=== PATIENT | female | born 2000 | race Caucasian/White ===

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

== ENCOUNTER → 2019-02-03 15:09 | Outpatient (CLI) | payer OTHER, SELFPAY ==
[2019-02-03 15:00] VITALS: BMI 33.6
--- NOTE | 2019-02-03 15:11 | RAD_ITS ---
STUDY: X-RAY - PELVIS AND RIGHT HIP REASON FOR EXAM: Hip pain. TECHNIQUE: 2 views of the pelvis and hip. COMPARISON: None. FINDINGS: Normal visualized soft tissue structures. Normal bilateral iliac wings, sacroiliac joints and visualized sacrum. Normal bilateral superior and inferior pubic rami. Normal pubic symphysis. Normal bilateral ischial tuberosities. Normal visualized femoral head. Normal acetabulum. Normal hip joint. RAD/HIP, UNI W/ Pelvis 2-3 Views IMPRESSION: Normal x-ray examination of the pelvis and right hip. Electronically Signed: Diego Tolentino MD at 16:01 EDT Tel , Service support ,
== END ==
PROVIDERS: Family Provider Pediatrics; PCP Pediatrics; Referring Provider Physician Assistant; Visit Provider Physician Assistant
DX: M25.551 Pain in right hip (principal)
CPT/HCPCS: 73502

== ENCOUNTER → 2019-03-21 10:41 | Outpatient (CLI) | payer OTHER, SELFPAY ==
[2019-02-03 15:00] VITALS: BMI 33.6
--- NOTE | 2019-03-21 10:42 | RAD_ITS ---
CLINICAL HISTORY: Female, 18 years old. Six-month history of pain. No known injury. PROCEDURE: ARTHROGRAM - RIGHT HIP CONSENT: The procedure as well as the benefits and possible complications including bleeding and infection were explained to the patient. Informed consent was obtained. FLUOROSCOPY TIME (if supplied): (81 seconds) minutes/seconds Injection Information: 10 cc of dilute MRI contrast. Number of images obtained: 1 TECHNIQUE: (All elements of maximal sterile barrier technique followed, including US elements as applicable) The patient was in the supine position. Skin was prepped and draped in usual sterile fashion. Following local anesthetic application and under direct fluoroscopic guidance, a 22-gauge spinal needle was placed into the hip joint. 2 cc of Isovue-300 was injected into the joint. Following this, 10 cc of dilute Magnevist was injected. The patient tolerated the procedure well. RAD/Arthrogram Hip w/ MRI IMPRESSION: Successful right hip arthrogram for MRI examination. Electronically Signed: Higinio Vasques, at 12:42 EST , Service support ,
--- NOTE | 2019-03-21 11:16 | MRI_ITS ---
STUDY: MR RIGHT HIP ARTHROGRAPHY REASON FOR EXAM: Right hip pain for 1.5 years, no specific injury. TECHNIQUE: Standardized fat and water weighted pulse sequences were obtained in all 3 orthogonal planes after intra-articular instillation of dilute Dotarem. COMPARISON: Radiographs 02/03/2019. FINDINGS: Normal hip joint without articular joint space narrowing. Normal acetabulum. There is a tear of the superior labrum (T1 coronal images 11-13) and anterior labrum (T1 axial images 14, 15). Normal femoral head. Normal femoral neck and intratrochanteric region. Normal gluteus minimus, medius and iliopsoas tendons and distal insertions. There is no trochanteric, iliopsoas or iliopectineal bursitis. Normal visualized superior and inferior pubic rami. Normal ischial tuberosity. Normal origin of the hamstring tendons. Normal visualized iliac wing. There is iatrogenic edema in the musculature anterior to the right hip. MRI/Lower Ext/Jt Only/W Contrast IMPRESSION: Labral tear. Electronically Signed: Diego Tolentino MD at 12:55 EST Tel , Service support ,
== END ==
PROVIDERS: Family Provider Pediatrics; PCP Pediatrics; Referring Provider Physician Assistant; Visit Provider Physician Assistant
DX: M25.551 Pain in right hip (principal); M25.851 Other specified joint disorders, right hip
CPT/HCPCS: 27093; 73722; 77002; A9575; Q9967

== ENCOUNTER 2019-10-28 19:05 | Emergency (ER) | payer OTHER, SELFPAY ==
[2019-08-30 13:50] VITALS: BMI 33.6
[2019-10-28 19:06] VITALS: BP 128/84; PULSE 100; RESP 18; TEMP 36.3; O2SAT 99; BMI 29.0
[2019-10-28] MEDS: Ketorolac 30 MG/ML Syringe IM (20:10)
[2019-10-28] MEDS: diazePAM 5 MG Tablet PO (20:10)
[2019-10-28 20:28] LABS: Bacteria 0 SEEN /hpf (None Seen); Mucous, Urine 0 SEEN /hpf (<or=2+)
[2019-10-28 20:33] LABS: Color, Urine Yellow (Yellow); Glucose, Dipstick Normal (Normal); Ketone-Dipstick Negative (Negative); Leukocyte Esterase-Dipstick 500 /ul (Negative); Nitrite-Dipstick Negative (Negative); Occult Blood-Urine 250 /ul (Negative); Protein-Dipstick 100 mg/dl (Negative); Urine Bilirubin Dipstick Negative (Negative); Urine Clarity Cloudy (Clear); Urine Urobilinogen 4 mg/dl (Normal)
[2019-10-28 20:39] LABS: Internal QC Validated? YES +Cl - CLEAR BKGD; Pregnancy, Urine Negative Negative
[2019-10-28 20:40] LABS: Red Blood Cells-Urine 50-100 SEEN /hpf (0-5); White Blood Cells >100 SEEN /hpf (0-5)
[2019-10-28 20:41] LABS: Squamous Epithelial Cells - UA 0-5 SEEN /hpf (5-10)
--- NOTE | 2019-10-28 20:46 | ED.DCSUM_ITS ---
- ER Visit Summary Date of Service: 10/28/19 Chief Complaint: Back pain History of Present Illness: The patient is a [address] Flores. Patient reports that approximate 30 minutes ago she was bending over and had the abrupt onset of a stabbing lower back pain. States that is 10 out of 10 at worst and 6 out of 10 currently. It is worsened by movement. Is relieved by remaining still and Tylenol. No radiation to her legs. No problems with her bowels or her bladder. No groin numbness. Patient reports that she has had dysuria and frequency for the past 2 days. She is on her menstrual period now. She denies any other complaints. No red flags. Physical Examination: Vitals: Stable. Afebrile. General: A&O x 3. NAD. Cardiovascular exam: Regular rate and rhythm, no murmur, rub or gallop. Respiratory exam: Clear to auscultation bilaterally. No wheezes or stridor. Abdominal exam: Soft, nontender, nondistended, normal bowel sounds. No peritoneal signs. Back: Diffuse moderate tenderness to palpation over the lumbar spine and the paraspinous musculature in the lumbar region. No point tenderness. Negative straight leg bilaterally. 5/5 DF, PF, EHL bilaterally. Normal sensation to light touch throughout. Extremity: No clubbing, cyanosis, or edema. Test Results: UA shows leukocytes, blood, greater than 100 white blood cells, 50-100 red blood cells, but no bacteria. test is negative. Emergency Department Course and Treatment: Patient was treated with Valium p.o., Toradol IM, and Keflex p.o. She is resting more comfortably. Treatment Plan: Patient will be discharged with Keflex, Valium, and naproxen. Instructed to follow-up with her primary care physician in 3 to 5 days if not improving. Return to the emergency department for any worsening symptoms. Disposition: To home in improved and stable condition. Impression: 1 1. Low back pain. 2. UTI. This note was generated with [facility] dictation software. It may contain incorrect words, spelling, and punctuation that were not noted in review of the chart prior to signing ED Disposition - Plan for ED Patient: Disposition: Home or Assisted Living Instructions: Understanding Urinary Tract Infections (UTIs), ED LUMBAR SPRAIN/STRAIN Prescriptions: Cephalexin [Keflex] 500 mg PO Q12 #14 cap Prescription Printed Naproxen [Naprosyn] 500 mg PO BID #14 tab Prescription Printed Diazepam [Valium] 5 mg PO Q8 PRN #10 tab PRN Reason: Muscle Spasm Prescription Printed Referrals: Marycarmen Flores MD [Primary Care Provider] - 1 Week
[2019-10-28] MEDS: Cephalexin 500 MG Capsule PO (21:08)
== END 2019-10-28 21:30 | disposition home or self-care (01) ==
LOC: ED 19:28
PROVIDERS: Emergency Provider Emergency Medicine; PCP Pediatrics
DX: N39.0 Urinary tract infection, site not specified (principal); M54.5 Low back pain
CPT/HCPCS: 81001; 81025; 96372; 99283

== ENCOUNTER → 2019-12-08 13:48 | Outpatient (CLI) | payer OTHER, SELFPAY ==
[2019-12-08 13:32] VITALS: BMI 29.0
[2019-12-08 15:01] LABS: HIV - WCH Non-Reactive (Nonreactive)
[2019-12-10 03:07] LABS: HCV Quant. RNA PCR HCV Not Detected IU/mL (.)
[2019-12-12 03:07] LABS: Chlamydia By Nucleic Acid AMP Negative (Negative)
[2019-12-12 08:00] LABS: Gonococcus By Nucleic Acid AMP Negative (Negative)
[2019-12-15 01:32] LABS: Rapid Plasmin Reagin (RPR) NONREACTIVE (NONREACTIVE)
== END ==
PROVIDERS: PCP Pediatrics; Referring Provider Obstetrics & Gynecology; Visit Provider Obstetrics & Gynecology
DX: Z11.3 Encounter for screening for infections with a predominantly sexual mode of transmission (principal)
CPT/HCPCS: 36415; 86592; 86703; 87070; 87205; 87491; 87522; 87591

== ENCOUNTER → 2020-01-06 | Outpatient (CLI) | payer OTHER, SELFPAY ==
[2020-01-06 16:48] VITALS: BMI 29.0
[2020-01-06 17:28] LABS: Red Blood Cells-Urine 0 SEEN /hpf (0-5)
[2020-01-06 17:37] LABS: Color, Urine Yellow (Yellow); Glucose, Dipstick Normal (Normal); Ketone-Dipstick 5 mg/dl (Negative); Leukocyte Esterase-Dipstick 25 /ul (Negative); Nitrite-Dipstick Negative (Negative); Occult Blood-Urine Negative /ul (Negative); Protein-Dipstick 15 mg/dl (Negative); Urine Bilirubin Dipstick Negative (Negative); Urine Clarity Sl. Cloudy (Clear); Urine Urobilinogen 4 mg/dl (Normal)
[2020-01-06 18:47] LABS: Bacteria 1+ /hpf (None Seen); Mucous, Urine 2+ /hpf (<or=2+); Squamous Epithelial Cells - UA 0-5 SEEN /hpf (5-10); White Blood Cells 5-10 SEEN /hpf (0-5)
== END | disposition home or self-care (01) ==
LOC: LABSPEC 17:28
PROVIDERS: PCP Pediatrics; Visit Provider Physician Assistant Surgical
DX: M54.5 Low back pain (principal)
CPT/HCPCS: 81001; 87077; 87086; 87088; 87186

== ENCOUNTER → 2020-01-13 | Outpatient (CLI) | payer OTHER, SELFPAY ==
[2020-01-13 13:20] VITALS: BMI 29.0
== END | disposition home or self-care (01) ==
LOC: LABSPEC 16:02
PROVIDERS: PCP Pediatrics; Referring Provider Obstetrics & Gynecology; Visit Provider Obstetrics & Gynecology
DX: N89.8 Other specified noninflammatory disorders of vagina (principal)
CPT/HCPCS: 87070; 87205

== ENCOUNTER → 2020-01-26 | Outpatient (CLI) | payer OTHER, SELFPAY ==
[2020-01-26 14:08] VITALS: BMI 27.7
== END | disposition home or self-care (01) ==
LOC: LABSPEC 16:19
PROVIDERS: PCP Pediatrics; Referring Provider Nurse Practitioner Women's Health; Visit Provider Nurse Practitioner Women's Health
DX: N39.0 Urinary tract infection, site not specified (principal); N76.0 Acute vaginitis
CPT/HCPCS: 87070; 87077; 87086; 87088; 87186; 87205

== ENCOUNTER 2020-02-10 13:00 | Outpatient (RCR) | payer OTHER, SELFPAY ==
[2019-08-30 13:50] VITALS: BMI 33.6
--- NOTE | 2019-10-03 17:32 | HP.PTEVAL ---
Patient's Visit Information JUAN WELCH is a 18 year old F referred to Physical Therapy by Dr. Valentín Trimble MD with a diagnosis of S/P RIGHT HIP SURGERY. Date of Evaluation: 10/03/19 Physical Therapist: Kailee De La Torre PT, Cert MDT - Visit Plan Frequency: 2-3x /Week Duration: 2 Months Plan: REHAB PER [facility] ARTHROSCOPIC LABREAL REPAIR PROTOCOL IN FOLDER IN WORK ROOM. - Subjective DX: S/P RIGHT HIP SCOPE WITH LABRAL REPOR, ACETABULOPLASTY, SYNOVECTOMY, CHONDROPLASTY, FEMOROPLASTY AND CAPSULAR CLOSURE 09/15/19 (2 WKS, 4 DAYS PO TODAY). Work/Leisure: [employer] STUDENT. Disability: NO. Present symptoms: USUALLY PAINFREE. INTERMITTENT RIGHT LATERAL THIGH PAIN. NUMBNESS ALONG OUTSIDE OF THIGH TOO. NO LOW BACK PAIN. Present since: APPROX 18 MONTHS BEFORE SURGERY AT LEAST. Pain Scale: WORST 3/10, LEAST 0/10. Currently: 0/10. Commenced as a result of: PATIENT REOPRTS HER HIP PAIN STARTED ABOUT 18 MONTHS AGO FOR NO APPARENT REASON BUT SHE SUSPECTS BEING IN DANCE FOR YEARS IS RELATED TO HER INJURY. Symptoms at onset: RIGHT HIP/GROIN. Worse: RANDOM RIGHT THIGH PAIN. Better: INTERMITTENT PAINS GO AWAY ON THEIR OWN. Disturbed sleep: NO. Previous history/Previous treatment: PT HERE ABOUT 1 YEAR AGO. H/O RIGHT HIP INJECTIONS WITH SOME BENEFIT. H/O LOW BACK STRAIN ABOUT 18 MONTHS AGO TOO. Treatment this episode: RIGHT HIP SX - SEE DX ABOVE. Gait: INDEP GAIT NWB WITH DARCI CRUTCHES. Accidents: NO. Unexplained weight loss: NO. Imagin03/21/19 - RIGHT HIP LABRAL TEAR ON MRI. PMH: UNREMARKABLE. CURRENT RESTRICTIONS: NO WB RIGHT UP TO THIS POINT. FOLLOW UP WITH DR. TRIMBLE IS IN 4 WEEKS - OCTOBER 28 2019. NO LIFTING > 10 LBS CURRENTLY ALSO. PATIENT REPORTS DOING HEP GIVEN AFTER SURGERY INCLUDING: ANKLE PUMPS, QS'S GS'S, BELT PASSIVE CALF STRETCH. PRONE LYING 20 MINUTES A DAY. ISO ABDOMINALS. PATIENT REPORT SHE AND HER MOTHER HAVE NOT BEEN DOING THE PASSIVE HIP CIRCUMDUCTION EX GIVEN AT PRE-OP SESSION BECAUSE WHEN THEY TRIED IT HURT. PATIENT DENIES ANY COMPLICATIONS WITH THE SURGERY AND REPORTS NO DIFFICLUTY WITH THE HEP. - Objective THIS PATIENT PRESENTS TO PHYSICAL THERAPY NWB RIGHT LE WITH DARCI AXILLARY CRUTCHES. SHE IS ABLE TO STAND WITH FOOT FLAT NON-WEIGHT BEARING. SHE IS ABLE TO INDEP'LY TRANSFER SIT TO STAND AND REVERSE. SHE IS ABLE TO TRANSFER SIT TO SUPINE INDEP'LY WITH UE ASSIST OF RIGHT LE. NON-OP LEFT HIP ROM IS WFL. PROM OF OPERATIVE RIGHT HIP: FLEX 101 DEG, ER 20 DEG, IR 15 DEG, EXTENSION 0 DEG. RIGHT LE STRENGTH GROSSLY WNL BUT PROCEEDED CAREFULLY WITH MMT'ING OF LEFT HIP. RIGHT LE STRENGTH: HIP NT, KNEE EXT 3-/5, KNEE FLEX 3-/5, ANKLE 4/5. FULL PROM OF RIGHT KNEE AND ANKLE. TREATMENT: REVIEWED HEP: PASSIVE HIP CIRCUMDUCTION WITH GENTLE LONG AXIS TRACTION AT ~60 DEG FLEX, FREQUENT PRONE LYING, ANKLE PUMPS, CALF STRETCHING, SUBMAX AND PAINFREE GLUTE SETS, QUAD SETS AND ISO ABDOMINALS. ADDED SUPINE HEEL SLIDES TO HEP. AGAIN - REVIEWED STANDING NON WT BEARING FOOT FLAT AND THE IMPORTANCE OF [employer] PLAN [employer]ER HELP WITH CIRCUMDUCTION. Sitting/Standing Posture: Lordosis: Lateral shift: Relevant shift: Active Correction of posture: Other Observations: Motor deficit: Sensory deficit: ROM deficit: Reflexes: Dural Signs: Lumbar mvmt loss: flex -. ext -. R SG -. L SG -. Core strength: Palpation: TREATMENT: NEUROMUSCULAR REEDUCATION - RETRAINING OF MVMT AND POSTURE FOR SITTING, LYING AND STANDING ACTIVITIES. - Goals Goal 1:: DECREASE C/O RIGHT HIP/THIGH PAIN Goal Time Frame: 6-8 Weeks Goal 2:: IMPROVE RIGHT LE FUNCTIONAL ROM Goal Time Frame: 6-8 Weeks Goal 3:: IMPROVE RIGHT LE FUCNTIONAL STRENGTH Goal Time Frame: 6-8 Weeks Goal 4:: INDEP AND SAFE GAIT ON ALL SURFACES WITH LEAST ASSISTIVE DEVICE AND DEVIATIONS. Goal Time Frame: 6-8 Weeks Goal 5:: INDEP HEP FOR CONTINUED IMPROVEMENT ONCE FORMAL PHYSICAL THERAPY CONCLUDES. Goal Time Frame: 6-8 Weeks - Rehabilitation Potential Rehabilitation Potential: Good - Anticipated Interventions Patient/Client Instruction: Educate patient on: Condition, Plan of Care, Risk Factors, Benefits of Fitness Program For the Purpose of:: To improve self management Therapeutic Exercise to Include: Strength training, Body mechanics, Postural training, Flexibilty training, Gait and locomotor training, Neuromotor development, Passive ROM, Active ROM, Dynamic Lumbar Stabilization Comment: PER PROTOCOL IN WORK ROOM For the Purpose of:: To decrease pain, To increase ROM, To improve muscle performance and motor function, To increase tolerance to activity/condition/position, To improve ability of physical actions for home/community/work/leisure, To improve gait and locomotor functions Thank you for the opportunity to evaluate your patient. For Medicare and Medicare HMO plans, please review the plan of care and approve it. It will need to be FAXED BACK to us at [phone] for Medicare purposes. For Medicare only, by signing this I certify the plan of care. Please let me know if there are questions or concerns regarding this plan of care. Physician Signature: Date:
--- NOTE | 2020-02-10 13:30 | HP.PTDCSUM_ITS ---
It has been my pleasure to treat JUAN WELCH referred by Dr. Valentín Trimble MD, with the diagnosis of S/P RIGHT HIP SURGERY 09/15/19 for a total of 33 visit(s). Discharge Date: Please see the following information for a summary of their discharge status. Subjective: PATIENT REPORTS SHE IS READY TO BE DISCHARGED. PATIENT REPORTS SHE HAS ACCESS TO THE GYM AT [facility] NOW. PATIENT REPORTS SHE HASN'T BEEN HAVING ANY PAIN AND SHE DOES NOT FEEL LIMITED IN ANY ACTIVITIES. HAS EVEN BEEN DOING SOME JOGGING AT SCHOOL. FOLLOW PENDING WITH DR. TRIMBLE 03/02/20. LEFT LOW BACK Pain Intensity (Out of 10): 0 % Improvement: 99 Objective/Function: PATIENT WAS SEEN TODAY FOR RE-ASSESSMENT OF PROGRESS TOWARD THE SET PT GOALS AND THE NEED FOR FURTHER PHYSICAL THERAPY VS READINESS FOR DISCHARGE. PATIENT IS NOW INDEP WITH HOME AND GYM EX PROGRAMS AND SKILLED PT IS NO LONGER INDIDCATED. SHE IS APPROPRIATE FOR AND AGREEABLE TO DISCHARGE. UPON EXAM TODAY: DARCI LE STRENGTH AND ROM ARE SYMMETRICAL AND WFL AND PAINFREE WITH TESTING. Goal 1:: DECREASE C/O RIGHT HIP/THIGH PAIN Goal Progress: Goal Met Goal 2:: IMPROVE RIGHT LE FUNCTIONAL ROM Goal Progress: Goal Met Goal 3:: IMPROVE RIGHT LE FUCNTIONAL STRENGTH Goal Progress: Goal Met Goal 4:: INDEP AND SAFE GAIT ON ALL SURFACES WITH LEAST ASSISTIVE DEVICE AND DEVIATIONS. Goal Progress: Goal Met Goal 5:: INDEP HEP FOR CONTINUED IMPROVEMENT ONCE FORMAL PHYSICAL THERAPY CONCLUDES. Goal Progress: Goal Met Plan: D/C TO INDEP EX If there are questions or concerns regarding this patient's physical therapy, please feel free to call me at [phone]. Thank you for the referral of this patient. Sincerely, Kailee De La Torre, PT, Cert MDT
== END 2020-02-10 19:00 | disposition home or self-care (01) ==
LOC: PT 13:00
PROVIDERS: PCP Pediatrics; Referring Provider Orthopaedic Surgery Sports Medicine; Visit Provider Orthopaedic Surgery Sports Medicine
DX: M25.851 Other specified joint disorders, right hip (principal)
CPT/HCPCS: 97014; 97110; 97112; 97140; 97161; 97164; 97530; G0283

== ENCOUNTER → 2020-03-14 16:27 | Outpatient (CLI) | payer OTHER, SELFPAY ==
[2020-01-26 14:08] VITALS: BMI 27.7
--- NOTE | 2020-03-14 16:30 | US_ITS ---
STUDY: RENAL ULTRASOUND - COMPLETE REASON FOR EXAM: Female, 19 years old. CHRONIC CYSTITIS TECHNIQUE: Ultrasound evaluation of the kidneys was performed with real-time and static mcgrath-scale imaging. COMPARISON: None. FINDINGS: RIGHT KIDNEY: Normal location of the right kidney, which is normal in size. The right kidney measures 11.6 x 5.7 x 4.1 cm. There is a normal cortex of the right kidney. The renal cortex measures 3 cm. There is no right renal mass or cyst. There are no right renal calculi. There is no right hydronephrosis. Extrarenal pelvis is noted DISTAL RIGHT URETER: There is non-visualization of the distal right ureter. There is no demonstrated right ureterovesical junction calculus. There is a visualized right ureteral jet. LEFT KIDNEY: Normal location of the left kidney, which is normal in size. The left kidney measures 11.5 x 5.1 x 5.7 cm. There is a normal cortex of the left kidney. The renal cortex measures 1 cm. There is no left renal mass or cyst. There are no left renal calculi. There is no left hydronephrosis. Extrarenal pelvis is noted. There is a small focal hyperechoic density in the upper pole calyx of the left kidney which does not shadow and is of uncertain etiology. This could represent very small clot or nonobstructing stone. CT would be helpful for further evaluation if clinically indicated DISTAL LEFT URETER: There is non-visualization of the distal left ureter. There is no demonstrated left ureterovesical junction calculus. There is a visualized left ureteral jet. BLADDER: The distended urinary bladder has a volume of 856.2 ml. There is a normal wall thickness of the distended urinary bladder. There is no demonstrated mass within the urinary bladder. There are no demonstrated bladder calculi. US/Kidney and Bladder IMPRESSION: No evidence for renal obstruction or mass. . Cannot exclude small nonobstructing calculus in the upper pole collecting system of left kidney. CT would be useful for further evaluation if indicated Electronically Signed: Vasile Carrera MD at 20:55 EST , Service support ,
== END ==
PROVIDERS: PCP Pediatrics; Referring Provider Nurse Practitioner Adult Health; Visit Provider Nurse Practitioner Adult Health
DX: N30.20 Other chronic cystitis without hematuria (principal)
CPT/HCPCS: 76770

== ENCOUNTER → 2020-05-09 | Outpatient (CLI) | payer OTHER, SELFPAY ==
[2020-05-09 15:13] VITALS: BMI 27.3
== END | disposition home or self-care (01) ==
LOC: LABSPEC 18:22
PROVIDERS: PCP Pediatrics; Visit Provider Physician Assistant
DX: T14.8XXA Other injury of unspecified body region, initial encounter (principal); R60.9 Edema, unspecified
CPT/HCPCS: 87070; 87077; 87205

== ENCOUNTER → 2020-07-05 | Outpatient (CLI) | payer OTHER, SELFPAY ==
[2020-07-04 14:57] VITALS: BMI 28.0
[2020-07-05 11:52] LABS: Bacteria 0 SEEN /hpf (None Seen); Mucous, Urine 0 SEEN /hpf (<or=2+); Red Blood Cells-Urine 0 SEEN /hpf (0-5); White Blood Cells 0 SEEN /hpf (0-5)
[2020-07-05 12:03] LABS: Glucose, Dipstick Normal (Normal); Ketone-Dipstick Negative (Negative); Leukocyte Esterase-Dipstick Negative /ul (Negative); Nitrite-Dipstick Positive (Negative); Occult Blood-Urine Negative /ul (Negative); Protein-Dipstick 15 mg/dl (Negative); Specific Gravity, Urine 1.015 (1.002-1.030); Urine Clarity Sl. Cloudy (Clear); Urine Urobilinogen 8 mg/dl (Normal)
[2020-07-05 12:05] LABS: Color, Urine SEE COMMENT BELOW (Yellow); Urine Bilirubin Dipstick 6 mg/dL (Negative)
[2020-07-05 12:18] LABS: Squamous Epithelial Cells - UA 0-5 SEEN /hpf (5-10)
== END | disposition home or self-care (01) ==
LOC: LABSPEC 11:32
PROVIDERS: PCP Pediatrics; Visit Provider Physician Assistant Surgical
DX: N39.0 Urinary tract infection, site not specified (principal)
CPT/HCPCS: 81001; 87077; 87086; 87088; 87186

== ENCOUNTER → 2020-08-14 | Outpatient (CLI) | payer OTHER, SELFPAY ==
[2020-07-04 14:57] VITALS: BMI 28.0
== END | disposition home or self-care (01) ==
LOC: LABSPEC 16:16
PROVIDERS: PCP Pediatrics; Referring Provider Nurse Practitioner Adult Health; Visit Provider Nurse Practitioner Adult Health
DX: N30.10 Interstitial cystitis (chronic) without hematuria (principal)
CPT/HCPCS: 87077; 87086; 87088; 87186

== ENCOUNTER 2020-08-23 19:10 | Emergency (ER) | payer OTHER, SELFPAY ==
[2020-07-04 14:57] VITALS: BMI 28.0
[2020-08-23 19:11] VITALS: BP 155/84; PULSE 128; RESP 17; TEMP 36.2; O2SAT 96; BMI 27.3
[2020-08-23] MEDS: Ondansetron 4 MG/2 ML Vial IV (20:03)
[2020-08-23] MEDS: Morphine 4 MG/ML Syringe IV (20:04)
--- NOTE | 2020-08-23 20:13 | EDS_ITS ---
HPI History of Present Illness Chief Complaint: Complaint Informant: patient Onset/Context/Timing Onset: Days Context: Gradual Onset Timing: Continuous Current Severity: Moderate Maximum Severity: Severe Narrative Narrative: The patient is a 19-year-old female with history of interstitial cystitis who presents to the emergency department with pain with urination. Patient states that she is on her third course of antibiotics. She finished treatment 2 days ago but then her symptoms returned. She describes significant pain with urinating. She is been taking Azo with little improvement. She states she even took a [place] with little improvement. She denies fevers or chills. She denies any back pain. Prior similar symptoms: Yes Recent Illness/Hospitalization: No PFSH PFSH Medical History Anxiety and depression IC (interstitial cystitis) Home Medications clotrimazole-betamethasone 1 %-0.05 % topical cream 1 applic TOPICAL BID 14 Days #45 g 01/26/20 [Rx Last Taken Unknown] desogestrel-e.estradiol 0.15 mg-0.02 mg(21)/e.estrad 0.01 mg(5) tablet 1 tab PO QDAY #84 tab 01/26/20 [Rx Last Taken Unknown] doxycycline monohydrate 100 mg capsule 100 mg PO BID #20 cap 05/09/20 [Rx Last Taken Unknown] sulfamethoxazole-trimethoprim 1 tab PO BID #14 tablet 08/23/20 [Rx Last Taken Unknown] Allergy/AdvReac Type Severity Reaction Status Date / Time No Known Allergies Allergy Verified 07/04/20 14:58 Family History Unknown Diabetes Hypertension Social History Smoking Status: Never smoker alcohol intake: never substance use type: does not use caffeine: Yes what type of physical activity do you participate in: walking frequency: 5-6 times per week seatbelt use: always do you feel safe at home: Yes additional social history: oren SINGH ROS ED Constitutional Constitutional ED: Denies chills or fever(s) Eyes Eyes: Denies blurry vision or change in vision ENT ENT ED: Denies ear pain or sore throat Cardiovascular Cardiovascular: Denies chest pain or palpitations Respiratory/Chest Respiratory/Chest: Denies cough, dyspnea or dyspnea on exertion Gastrointestinal Gastrointestinal: Denies abdominal pain, nausea or vomiting Genitourinary Genitourinary ED: Reports dysuria and urinary frequency Musculoskeletal Musculoskeletal: Denies arthralgias or myalgias Integumentary Denies rash Neurologic Neurologic: Denies headache(s) or paresthesias Psychiatric Psychiatric: Denies anxiety or depression Endocrine Endocrinology: Denies polydipsia or polyuria Allergic/Immunologic Allergic/Immunologic ED: Denies urticaria EXAM Physical Exam Const Vital Signs: 08/23/20 19:11 Temperature 97.2 F L Temperature Source Temporal Pulse Rate 128 H Respiratory Rate 17 Blood Pressure 155/84 H Blood Pressure Mean 107 Pulse Ox 96 Oxygen Delivery Method Room Air Positive well nourished and well developed General Appearance ED: well developed HEENT Reports normocephalic, head/scalp atraumatic and moist mucous membranes Eyes PERRL and EOMs intact bilaterally Neck no lymphadenopathy and supple General: Negative for tenderness Chest Wall inspection of chest normal Resp normal respiratory effort and clear to auscultation bilaterally Cardio regular rate, regular rhythm and no murmurs GI normal to inspection, nondistended, normoactive bowel sounds Palpation: Negative for tender, guarding or rebound tenderness present Back/Spine no CVA tenderness Cervical Spine: Negative for cervical spine tenderness Thoracic Spine / Upper Back: Negative for thoracic spinal tenderness Extremity normal to inspection General Extremety ED: Negative for tenderness Neuro oriented x3 and CN's II-XII intact bilaterally Neuro Narrative: No focal deficits appreciated. Sensorium / Orientation: alert Psych mental status grossly normal Skin no rashes or lesions noted, no wounds and skin turgor normal MDM MDM MDM Narrative Medical decision making narrative: The patient presents with recurrent dysuria. She is on her third antibiotics. She was treated with Keflex and amoxicillin. I did repeat her urine. It does show persistent evidence of infection. Culture was added. The patient was given a gram of Rocephin. Currently, her pain is controlled. She has a mild leukocytosis but no evidence of pyelonephritis. At this point, I do feel the patient is safe for outpatient therapy and she agrees. She will be started on Bactrim. She will return with any worsening symptoms. Impression 1. Acute cystitis Lab Data Attestation: I reviewed the patient's lab results. Labs: Laboratory Results - last 24 hr 08/23/20 08/23/20 08/23/20 19:55 19:55 20:10 WBC 11.9 H RBC 4.15 L Hgb 12.5 Hct 37.3 MCV 89.9 MCH 30.1 MCHC 33.5 RDW Std Deviation 38.0 RDW Coeff of Lisa 11.5 L Plt Count 313 MPV 9.9 Immature Gran % (Auto) 0.300 Neut % (Auto) 71.6 H Lymph % (Auto) 15.0 L [place] % (Auto) 8.1 Eos % (Auto) 4.3 Baso % (Auto) 0.7 Absolute Neuts (auto) 8.5 H Absolute Lymphs (auto) 1.78 Nucleated RBC % 0 Sodium 141 Potassium 4.2 Chloride 107 Carbon Dioxide 29.0 Anion Gap 5 BUN 7 Creatinine 0.74 Estim Creat Clear Calc 117.93 Est GFR (MDRD) Af Amer 127 Est GFR (MDRD) Non-Af 105 BUN/Creatinine Ratio 9.4 L Glucose 94 Calcium 8.6 Urine Color SEE COMMENT BELOW Urine Clarity Cloudy Urine pH 5.0 Ur Specific Haynes 1.020 Urine Protein 100 H Urine Glucose (UA) Normal Urine Ketones Negative Urine Occult Blood 250 H Urine Nitrite Positive H Urine Bilirubin 6 H Urine Urobilinogen 12 H Ur Leukocyte Esterase 500 H Urine RBC 0 SEEN Urine WBC >100 SEEN Ur Squamous Epith Cells 0 SEEN Urine Bacteria 0 SEEN Urine Mucus 0 SEEN Discharge Plan Triage Chief Complaint: Complaint ED Provider: Hebert Way Dx/Rx/DC Orders Instructions: ED Bladder Infection, Female (Adult) Prescriptions: New sulfamethoxazole-trimethoprim [sulfamethoxazole-trimethoprim] 1 TABLET tablet 1 tab PO BID Qty: 14 RF: 0 No Action clotrimazole-betamethasone 1-0.05 % cream 1 applic TOPICAL BID 14 Days Qty: 45 RF: 1 doxycycline monohydrate 100 mg capsule 100 mg PO BID Qty: 20 RF: 0 desog-e.estradiol/e.estradiol [Kariva (28)] 0.15-0.02 mgx21 /0.01 mg x 5 tablet 1 tab PO QDAY Qty: 84 RF: 4 Primary Care Provider: Marycarmen Flores Referrals: Marycarmen Flores MD [Primary Care Provider] -
[2020-08-23 20:16] LABS: Bacteria 0 SEEN /hpf (None Seen); Mucous, Urine 0 SEEN /hpf (<or=2+); Red Blood Cells-Urine 0 SEEN /hpf (0-5); Squamous Epithelial Cells - UA 0 SEEN /hpf (5-10)
[2020-08-23 20:18] LABS: Glucose, Dipstick Normal (Normal); Ketone-Dipstick Negative (Negative); Leukocyte Esterase-Dipstick 500 /ul (Negative); Nitrite-Dipstick Positive (Negative); Occult Blood-Urine 250 /ul (Negative); Protein-Dipstick 100 mg/dl (Negative); Urine Clarity Cloudy (Clear); Urine Urobilinogen 12 mg/dl (Normal)
[2020-08-23 20:21] LABS: Absolute Lymphocyte Count 1.78 X10^3/uL (0.83-4.51); Absolute Neutrophil Count 8.5 X10^3/uL (2.0-7.7); Basophil# 0.08 X10^3/uL; Basophil% 0.7 % (0-1); Eosinophil# 0.51 X10^3/uL; Eosinophils% 4.3 % (0-5); Hematocrit 37.3 % (37-47); Hemoglobin 12.5 g/dL (12.0-15.0); Lymphocyte # 1.78 X10^3/ul (0.83-4.51); Mean Corp Hgb Conc 33.5 g/dL (32-36); Mean Corpuscular Hgb 30.1 pg (27.0-32.0); Mean Corpuscular Volume 89.9 fL (81-99); Mean Platelet Vol. 9.9 fl (6.2-12.0); Monocyte# 0.96 X10^3/uL; Monocyte% 8.1 % (0-10); NRBC Flagged by Analyzer 0 % (0-5); Neutrophil # 8.52 X10^3/uL (2.7-7.7); Neutrophil % 71.6 % (47-70); Platelet Count 313 K/mm3 (150-450); RBC Distribution Width CV 11.5 % (11.6-14.6); Red Blood Count 4.15 M/mm3 (4.2-5.4); White Blood Count 11.9 K/mm3 (4.4-11.0)
[2020-08-23 20:34] LABS: Anion Gap 5 (5-15); BUN 7 mg/dL (7-18); BUN/Creat Ratio 9.4 RATIO (10-20); Calcium,Total 8.6 mg/dL (8.5-10.1); Chloride 107 mmol/L (98-107); Creatinine, Serum 0.74 mg/dL (0.55-1.02); EST Glomerular Filtration Rate 105 mL/min (>60); Est Glom Filt Rate - Afr Amer 127 mL/min (>60); Estimated Creatinine Clearance 117.93 ml/min; Glucose 94 mg/dL (74-106); Potassium 4.2 mmol/L (3.5-5.1); Sodium Level 141 mmol/L (136-145)
[2020-08-23 21:10] LABS: Color, Urine SEE COMMENT BELOW (Yellow); Urine Bilirubin Dipstick 6 mg/dL (Negative)
[2020-08-23 21:37] LABS: White Blood Cells >100 SEEN /hpf (0-5)
[2020-08-23] MEDS: Ceftriaxone 1 GM/50 ML BAG IV (21:37)
== END 2020-08-23 22:31 | disposition home or self-care (01) ==
LOC: ED 20:05
PROVIDERS: Emergency Provider Emergency Medicine; PCP Pediatrics
DX: N30.00 Acute cystitis without hematuria (principal); F41.9 Anxiety disorder, unspecified; F32.9 Major depressive disorder, single episode, unspecified; Z87.440 Personal history of urinary (tract) infections; Z79.899 Other long term (current) drug therapy
CPT/HCPCS: 80048; 81001; 85025; 87086; 96365; 96374; 96375; 99283; J7030; A4216; J2405

== ENCOUNTER 2020-08-26 00:47 | Emergency (ER) | payer OTHER, SELFPAY ==
[2020-08-26 00:47] VITALS: BP 143/79; PULSE 102; RESP 18; TEMP 37; O2SAT 98; BMI 29.5
[2020-08-26 00:49] VITALS: BP 143/79; PULSE 102; RESP 18; TEMP 37; O2SAT 98
[2020-08-26 01:02] LABS: Mucous, Urine 0 SEEN /hpf (<or=2+)
[2020-08-26 01:03] LABS: Color, Urine SEE COMMENT BELOW (Yellow); Glucose, Dipstick Normal (Normal); Ketone-Dipstick Negative (Negative); Leukocyte Esterase-Dipstick Negative /ul (Negative); Nitrite-Dipstick Positive (Negative); Occult Blood-Urine 10 /ul (Negative); Protein-Dipstick 30 mg/dl (Negative); Urine Bilirubin Dipstick 6 mg/dL (Negative); Urine Clarity Cloudy (Clear); Urine Urobilinogen 12 mg/dl (Normal); Urine pH 6.5 (5.0 - 8.0)
--- NOTE | 2020-08-26 01:04 | EDS_ITS ---
HPI HPI - Female History of Present Illness Chief Complaint: Complaint Narrative Narrative: 19-year-old female presenting with dysuria. She states she has a history of UTI and interstitial cystitis. Patient has been on her third course of antibiotics over the last 2 weeks and still continues have symptoms. She states that feels like a UTI because she has burning at the end of urination. This is different than her symptoms of interstitial cystitis. Patient was originally on Keflex and continue to have symptoms and then was placed on amoxicillin. Patient did also return a few days ago and was placed on Bactrim. She continues to have symptoms. She does not have nausea or vomiting. Has not had a fever. [facility] Medical History Anxiety and depression IC (interstitial cystitis) Home Medications clotrimazole-betamethasone 1 %-0.05 % topical cream 1 applic TOPICAL BID 14 Days #45 g 01/26/20 [Rx Last Taken Unknown] desogestrel-e.estradiol 0.15 mg-0.02 mg(21)/e.estrad 0.01 mg(5) tablet 1 tab PO QDAY #84 tab 01/26/20 [Rx Last Taken Unknown] doxycycline monohydrate 100 mg capsule 100 mg PO BID #20 cap 05/09/20 [Rx Last Taken Unknown] sulfamethoxazole-trimethoprim 1 tab PO BID #14 tablet 08/23/20 [Rx Last Taken Unknown] sulfamethoxazole-trimethoprim [Bactrim DS] 1 tab PO Q12H #14 tab 08/24/20 [Rx Last Taken Unknown] Allergy/AdvReac Type Severity Reaction Status Date / Time No Known Allergies Allergy Verified 07/04/20 14:58 Family History Unknown Diabetes Hypertension Social History Smoking Status: Never smoker alcohol intake: never substance use type: does not use caffeine: Yes what type of physical activity do you participate in: walking frequency: 5-6 times per week seatbelt use: always do you feel safe at home: Yes additional social history: oren SINGH ROS ED Constitutional Constitutional ED: Denies chills, fever(s) or sweats Eyes Eyes: Denies blurry vision or change in vision ENT ENT ED: Denies ear pain, rhinorrhea or sore throat Cardiovascular Cardiovascular: Denies chest pain, palpitations or racing heartbeat Respiratory/Chest Respiratory/Chest: Denies cough, dyspnea or sputum Gastrointestinal Gastrointestinal: Denies abdominal pain, constipation, diarrhea or vomiting Genitourinary Genitourinary ED: Reports dysuria and urinary frequency; Denies hematuria Musculoskeletal Musculoskeletal: Denies arthralgias, myalgias or neck pain Integumentary Denies abscess, Abrasions or rash Neurologic Neurologic: Denies headache(s), paresthesias or weakness Psychiatric Psychiatric: Denies anxiety, depression, suicidal ideation or suicidal thoughts Endocrine Endocrinology: Denies polydipsia or polyuria EXAM Physical Exam Const Vital Signs: 08/26/20 00:47 08/26/20 00:49 Temperature 98.6 F 98.6 F Temperature Source Temporal Temporal Pulse Rate 102 H 102 H Respiratory Rate 18 18 Blood Pressure 143/79 H 143/79 H Blood Pressure Mean 100 100 Pulse Ox 98 98 Oxygen Delivery Method Room Air Room Air Positive well nourished General Appearance ED: NAD; Negative for pallor HEENT Reports normocephalic, head/scalp atraumatic and moist mucous membranes Negative for trauma Eyes PERRL and EOMs intact bilaterally Resp normal respiratory effort and clear to auscultation bilaterally Auscultation: Negative for rales, rhonchi or wheezes Cardio regular rate and regular rhythm GI normal to inspection, nondistended, normoactive bowel sounds Palpation: soft Negative for no CVA tenderness Narrative: Deferred Back/Spine no CVA tenderness General Back: Negative for CVA tenderness Neuro oriented x3 and CN's II-XII intact bilaterally Sensorium / Orientation: alert Motor Exam: strength 5/5 throughout Psych mental status grossly normal Attitude: No agitated Skin no rashes or lesions noted and no wounds General Skin Exam: Negative for jaundice or pallor MDM MDM MDM Narrative Medical decision making narrative: Patient presenting with dysuria. She states this is a chronic issue because she has interstitial cystitis but also feels like this is most consistent with a UTI. Patient is going on antibiotics for 2 weeks. She states he initially was seen by her urologist however she has not been seen again by her urologist. She states he comes to the emergency room and then reports findings to the urologist. Patient's urinalysis today is positive for nitrites however her urinalysis does look better than it did previously. He does not have any leukocyte esterase and her WBCs are 0-5. Her last culture did not grow out anything. I did obtain lab work and her leukocytosis is lower. Her renal function and electrolytes are normal. After discussion we determined the best course of action was to have her follow-up with urology. She is offered Pyridium but states that this does not help. She did ask for [place] however this is a chronic issue and not feel comfortable prescribing narcotics for dysuria. She states that she did receive [place] for her pain by her urologist when the symptoms started. I recommended that she follow-up with urology if she needs further treatment. Impression: 1. UTI 2. History of interstitial cystitis Lab Data Labs: Laboratory Results - last 24 hr 08/26/20 08/26/20 08/26/20 00:55 01:06 01:06 WBC 11.3 H RBC 4.10 L Hgb 12.3 Hct 36.6 L MCV 89.3 MCH 30.0 MCHC 33.6 RDW Std Deviation 37.4 RDW Coeff of Lisa 11.6 Plt Count 285 MPV 9.7 Immature Gran % (Auto) 0.300 Neut % (Auto) 60.5 Lymph % (Auto) 27.4 Thomas % (Auto) 6.6 Eos % (Auto) 4.6 Baso % (Auto) 0.6 Absolute Neuts (auto) 6.8 Absolute Lymphs (auto) 3.09 Nucleated RBC % 0 Sodium 138 Potassium 4.4 Chloride 106 Carbon Dioxide 26.0 Anion Gap 6 BUN 10 Creatinine 0.88 Estim Creat Clear Calc 99.17 Est GFR (MDRD) Af Amer 104 Est GFR (MDRD) Non-Af 86 BUN/Creatinine Ratio 11.3 Glucose 103 Calcium 8.9 Urine Color SEE COMMENT BELOW Urine Clarity Cloudy Urine pH 6.5 Ur Specific [place] 1.020 Urine Protein 30 H Urine Glucose (UA) Normal Urine Ketones Negative Urine Occult Blood 10 H Urine Nitrite Positive H Urine Bilirubin 6 H Urine Urobilinogen 12 H Ur Leukocyte Esterase Negative Urine RBC 5-10 SEEN Urine WBC 0-5 SEEN Ur Squamous Epith Cells 0-5 SEEN Urine Bacteria 1+ Urine Mucus 0 SEEN Discharge Plan Triage Chief Complaint: Complaint ED Provider: Alex Gonzalez Dx/Rx/DC Orders Instructions: ED Bladder Infection, Male (Adult) Prescriptions: No Action clotrimazole-betamethasone 1-0.05 % cream 1 applic TOPICAL BID 14 Days Qty: 45 RF: 1 doxycycline monohydrate 100 mg capsule 100 mg PO BID Qty: 20 RF: 0 sulfamethoxazole-trimethoprim [sulfamethoxazole-trimethoprim] 1 TABLET tablet 1 tab PO BID Qty: 14 RF: 0 sulfamethoxazole-trimethoprim [Bactrim DS] 800-160 mg tablet 1 tab PO Q12H Qty: 14 RF: 0 desog-e.estradiol/e.estradiol [Kariva (28)] 0.15-0.02 mgx21 /0.01 mg x 5 tablet 1 tab PO QDAY Qty: 84 RF: 4 Primary Care Provider: Marycarmen Flores Referrals: Marycarmen Flores MD [Primary Care Provider] - Disposition Disposition: Home, self care
[2020-08-26 01:10] LABS: Bacteria 1+ /hpf (None Seen); Red Blood Cells-Urine 5-10 SEEN /hpf (0-5); Squamous Epithelial Cells - UA 0-5 SEEN /hpf (5-10); White Blood Cells 0-5 SEEN /hpf (0-5)
[2020-08-26 01:12] LABS: Absolute Lymphocyte Count 3.09 X10^3/uL (0.83-4.51); Absolute Neutrophil Count 6.8 X10^3/uL (2.0-7.7); Basophil# 0.07 X10^3/uL; Basophil% 0.6 % (0-1); Eosinophil# 0.52 X10^3/uL; Eosinophils% 4.6 % (0-5); Hematocrit 36.6 % (37-47); Hemoglobin 12.3 g/dL (12.0-15.0); Lymphocyte # 3.09 X10^3/ul (0.83-4.51); Lymphocyte % 27.4 % (19-41); Mean Corp Hgb Conc 33.6 g/dL (32-36); Mean Corpuscular Volume 89.3 fL (81-99); Mean Platelet Vol. 9.7 fl (6.2-12.0); Monocyte# 0.74 X10^3/uL; Monocyte% 6.6 % (0-10); NRBC Flagged by Analyzer 0 % (0-5); Neutrophil # 6.82 X10^3/uL (2.7-7.7); Neutrophil % 60.5 % (47-70); Platelet Count 285 K/mm3 (150-450); RBC Distribution Width CV 11.6 % (11.6-14.6); RBC Distribution Width SD 37.4 fl (35.1-43.9); White Blood Count 11.3 K/mm3 (4.4-11.0)
[2020-08-26 01:26] LABS: Anion Gap 6 (5-15); BUN 10 mg/dL (7-18); BUN/Creat Ratio 11.3 RATIO (10-20); Calcium,Total 8.9 mg/dL (8.5-10.1); Chloride 106 mmol/L (98-107); Creatinine, Serum 0.88 mg/dL (0.55-1.02); EST Glomerular Filtration Rate 86 mL/min (>60); Est Glom Filt Rate - Afr Amer 104 mL/min (>60); Estimated Creatinine Clearance 99.17 ml/min; Glucose 103 mg/dL (74-106); Potassium 4.4 mmol/L (3.5-5.1); Sodium Level 138 mmol/L (136-145)
--- NOTE | 2020-08-26 02:51 | PCM.HP.STD ---
HPI - General HPI Narrative The patient is a 19 y/o F w/ PMHx: Interstitial cystitis, Frequent UTI, Anxiety and Depression who presents to the [facility] ED on 08/26/20 with serial evaluations for dysuria complaints noting to be on her 3rd antibiotic course ongoing Work-up in the ED included T 98.6, HR 102, BP 143/79, 98% on RA, CBC w/ WBC 11.3, Hgb 12.3, Plts 285 without shift, BMP unremarkable, UA w/ SG 1.020, protein 30, occult blood 10, positive nitrite, bilirubin 6, urobilinogen 12, negative LE, urine 0-5 WBC, urine 1+ [facility] Medical History Anxiety and depression IC (interstitial cystitis) Home Medications clotrimazole-betamethasone 1 %-0.05 % topical cream 1 applic TOPICAL BID 14 Days #45 g 01/26/20 [Rx Last Taken Unknown] desogestrel-e.estradiol 0.15 mg-0.02 mg(21)/e.estrad 0.01 mg(5) tablet 1 tab PO QDAY #84 tab 01/26/20 [Rx Last Taken Unknown] doxycycline monohydrate 100 mg capsule 100 mg PO BID #20 cap 05/09/20 [Rx Last Taken Unknown] sulfamethoxazole-trimethoprim 1 tab PO BID #14 tablet 08/23/20 [Rx Last Taken Unknown] sulfamethoxazole-trimethoprim [Bactrim DS] 1 tab PO Q12H #14 tab 08/24/20 [Rx Last Taken Unknown] Allergy/AdvReac Type Severity Reaction Status Date / Time No Known Allergies Allergy Verified 07/04/20 14:58 Family History Unknown Diabetes Hypertension Social History Smoking Status: Never smoker alcohol intake: never substance use type: does not use caffeine: Yes what type of physical activity do you participate in: walking frequency: 5-6 times per week seatbelt use: always do you feel safe at home: Yes additional social history: oren orozco Vital Signs Vital Signs Vital Signs: 08/26/20 00:47 08/26/20 00:49 Temperature 98.6 F 98.6 F Temperature Source Temporal Temporal Pulse Rate 102 H 102 H Respiratory Rate 18 18 Blood Pressure 143/79 H 143/79 H Blood Pressure Mean 100 100 Pulse Ox 98 98 Oxygen Delivery Method Room Air Room Air Lab / Micro Data Result Diagrams: 08/26/20 01:06 08/26/20 01:06 Labs: Laboratory Results - last 24 hr 08/26/20 08/26/20 08/26/20 00:55 01:06 01:06 WBC 11.3 H RBC 4.10 L Hgb 12.3 Hct 36.6 L MCV 89.3 MCH 30.0 MCHC 33.6 RDW Std Deviation 37.4 RDW Coeff of Lisa 11.6 Plt Count 285 MPV 9.7 Immature Gran % (Auto) 0.300 Neut % (Auto) 60.5 Lymph % (Auto) 27.4 La[place] % (Auto) 6.6 Eos % (Auto) 4.6 Baso % (Auto) 0.6 Absolute Neuts (auto) 6.8 Absolute Lymphs (auto) 3.09 Nucleated RBC % 0 Sodium 138 Potassium 4.4 Chloride 106 Carbon Dioxide 26.0 Anion Gap 6 BUN 10 Creatinine 0.88 Estim Creat Clear Calc 99.17 Est GFR (MDRD) Af Amer 104 Est GFR (MDRD) Non-Af 86 BUN/Creatinine Ratio 11.3 Glucose 103 Calcium 8.9 Urine Color SEE COMMENT BELOW Urine Clarity Cloudy Urine pH 6.5 Ur Specific [place] 1.020 Urine Protein 30 H Urine Glucose (UA) Normal Urine Ketones Negative Urine Occult Blood 10 H Urine Nitrite Positive H Urine Bilirubin 6 H Urine Urobilinogen 12 H Ur Leukocyte Esterase Negative Urine RBC 5-10 SEEN Urine WBC 0-5 SEEN Ur Squamous Epith Cells 0-5 SEEN Urine Bacteria 1+ Urine Mucus 0 SEEN
[2020-08-26] MEDS: HYDROcodone Bitartrate/Apap 5/325 Tablet PO (03:18)
[2020-08-26 03:24] VITALS: BP 138/69; PULSE 90; RESP 16
== END 2020-08-26 03:24 | disposition home or self-care (01) ==
PROVIDERS: Emergency Provider Student in an Organized Health Care Education/Training Program; PCP Pediatrics
DX: N39.0 Urinary tract infection, site not specified (principal); Z87.440 Personal history of urinary (tract) infections
CPT/HCPCS: 80048; 81001; 85025; 87086; 99282; A4216

== ENCOUNTER 2020-11-24 22:40 | Emergency (ER) | payer OTHER, SELFPAY ==
[2020-11-24 22:41] VITALS: BP 125/82; PULSE 118; RESP 15; TEMP 36.8; O2SAT 97; BMI 31.1
--- NOTE | 2020-11-24 23:49 | EDS_ITS ---
HPI HPI - URI History of Present Illness Chief Complaint: Shortness of Breath Narrative Narrative: Patient states for several hours she has had discomfort in her neck and throat, feeling like she is a little short of breath because of the feeling of swelling. She states it is throughout her throat, not just on one side. Hurts to swallow. Her voice is normal. She denies any fevers or chills. She has had some nasal congestion for the last week or 2 and a minor cough. No myalgias. No chest symptoms. Her ears hurt worse on the right normal hearing not muffled. No discharge. She was vaccinated against Covid, first end of August and the second end of September. ROS ROS ED Constitutional Constitutional ED: Denies chills or fever(s) Eyes Eyes: Denies change in vision or diplopia ENT ENT ED: Reports ear pain right, nasal congestion, sore throat and throat swelling; Denies headache(s) or rhinorrhea Cardiovascular Cardiovascular: Denies chest pain or palpitations Respiratory/Chest Respiratory/Chest: Reports as per HPI and cough; Denies chest congestion, chest tightness, dyspnea on exertion, hemoptysis or hoarseness Gastrointestinal Gastrointestinal: Denies abdominal pain, diarrhea, nausea or vomiting Genitourinary Genitourinary ED: Denies dysuria or hematuria Musculoskeletal Musculoskeletal: Denies back pain or neck pain Integumentary Denies abscess or rash Neurologic Neurologic: Denies headache(s), paresthesias or weakness Psychiatric Psychiatric: Denies anxiety or suicidal thoughts PFSH PFS Medical History Anxiety Anxiety and depression Depression IC (interstitial cystitis) Home Medications aloe vera 3 cap PO DAILY 11/24/20 [History Last Taken Unknown] Allergy/AdvReac Type Severity Reaction Status Date / Time No Known Allergies Allergy Verified 11/24/20 22:41 Family History Unknown Diabetes Hypertension Social History Smoking Status: Never smoker alcohol intake: never substance use type: does not use caffeine: Yes what type of physical activity do you participate in: walking frequency: 5-6 times per week seatbelt use: always do you feel safe at home: Yes additional social history: [facility] EXAM Physical Exam Const Vital Signs: 11/24/20 22:41 11/24/20 22:55 Temperature 98.3 F Temperature Source Temporal Pulse Rate 118 H Respiratory Rate 15 Respiratory Effort Normal Non-Labored Respiratory Depth Normal Respiratory Pattern Normal Blood Pressure 125/82 H Blood Pressure Mean 96 Pulse Ox 97 Oxygen Delivery Method Room Air Room Air Positive well nourished and well developed General Appearance ED: well developed and NAD HEENT Reports moist mucous membranes HEENT Narrative: TMs normal except right slight erythema, normal light reflex no effusion. Significant amount of cerumen in both EACs otherwise normal. normocephalic and atraumatic Throat: tonsils normal, uvula midline and posterior oropharynx abnormal Positive for erythema; Negative for tonsils abnormal or hoarseness Eyes PERRL and EOMs intact bilaterally Neck full ROM and supple Neck Narrative: Mild tender submandibular lymphadenopathy bilateral. No posterior lymphadenopathy. Resp normal respiratory effort and clear to auscultation bilaterally Cardio regular rate, regular rhythm and no murmurs Neuro oriented x3, CN's II-XII intact bilaterally and no sensory deficits noted Sensorium / Orientation: awake and alert Motor Exam: strength 5/5 throughout Skin no rashes or lesions noted and no wounds MDM MDM MDM Narrative Medical decision making narrative: Covid and rapid strep were obtained they were both negative. The Covid was a rapid antigen test. I do not think she needs a PCR at this time. I think she is having symptoms in her throat due to swollen adenoids/lymph nodes. I do not see anything that requires antibiotics at this time. I think would be reasonable to cover her for viral etiology with Decadron and I think that will help her. She is amenable to that plan and following up or return if worse. Discharge Plan Triage Chief Complaint: Shortness of Breath ED Provider: Alexandro Loredo Dx/Rx/DC Orders Clinical Impression: Acute viral pharyngitis Instructions: Lymphadenopathy, ED Pharyngitis, Viral Prescriptions: No Action aloe vera Capsule 3 cap PO DAILY RF: 0 Primary Care Provider: Marycarmen Flores Referrals: Marycarmen Flores MD [Primary Care Provider] - 3-5 Days if not improving Disposition Disposition: Home, Self Care
[2020-11-24] MEDS: Naproxen 250 MG Tablet 500 MG PO (23:57)
[2020-11-24] MEDS: dexAMETHasone 4 MG Tablet 8 MG PO (23:57)
[2020-11-25 01:02] VITALS: PULSE 92; O2SAT 99
== END 2020-11-25 01:03 | disposition home or self-care (01) ==
PROVIDERS: Emergency Provider Emergency Medicine; PCP Pediatrics
DX: J02.8 Acute pharyngitis due to other specified organisms (principal)
CPT/HCPCS: 87426; 87880; 99283

== ENCOUNTER → 2020-11-26 | Outpatient (CLI) | payer OTHER, SELFPAY | END | disposition home or self-care (01) | PROVIDERS: PCP Pediatrics; Referring Provider Physician Assistant Surgical; Visit Provider Physician Assistant Surgical | DX: N39.0 Urinary tract infection, site not specified (principal) | CPT/HCPCS: 87086 ==

== ENCOUNTER → 2021-01-11 | Outpatient (CLI) | payer OTHER, SELFPAY ==
[2021-01-11 16:07] LABS: Bacteria 0 SEEN /hpf (None Seen); Mucous, Urine 0 SEEN /hpf (<or=2+); Red Blood Cells-Urine 0 SEEN /hpf (0-5); White Blood Cells 0 SEEN /hpf (0-5)
[2021-01-11 16:11] LABS: Color, Urine Yellow (Yellow); Glucose, Dipstick Normal (Normal); Ketone-Dipstick Negative (Negative); Leukocyte Esterase-Dipstick Negative /ul (Negative); Nitrite-Dipstick Negative (Negative); Occult Blood-Urine Negative /ul (Negative); Protein-Dipstick Negative (Negative); Specific Gravity, Urine 1.015 (1.002-1.030); Urine Bilirubin Dipstick Negative (Negative); Urine Clarity Clear (Clear); Urine Urobilinogen Normal (Normal)
[2021-01-11 16:17] LABS: Squamous Epithelial Cells - UA 0-5 SEEN /hpf (5-10)
== END | disposition home or self-care (01) ==
LOC: LABSPEC 15:26
PROVIDERS: PCP Pediatrics; Referring Provider Physician Assistant; Visit Provider Physician Assistant
DX: N39.0 Urinary tract infection, site not specified (principal)
CPT/HCPCS: 81001; 87086

== ENCOUNTER → 2021-02-19 | Outpatient (CLI) | payer OTHER, SELFPAY ==
[2021-02-19 18:04] LABS: Bacteria 0 SEEN /hpf (None Seen); Mucous, Urine 0 SEEN /hpf (<or=2+); Red Blood Cells-Urine 0 SEEN /hpf (0-5); White Blood Cells 0 SEEN /hpf (0-5)
[2021-02-19 18:53] LABS: Glucose, Dipstick Normal (Normal); Ketone-Dipstick Negative (Negative); Leukocyte Esterase-Dipstick Negative /ul (Negative); Nitrite-Dipstick Positive (Negative); Occult Blood-Urine Negative /ul (Negative); Protein-Dipstick 15 mg/dl (Negative); Urine Clarity Sl. Cloudy (Clear); Urine Urobilinogen 8 mg/dl (Normal)
[2021-02-19 18:57] LABS: Color, Urine SEE COMMENT BELOW (Yellow); Urine Bilirubin Dipstick 6 mg/dL (Negative)
[2021-02-19 18:59] LABS: Amorphous Sediment 1+ URATE; Squamous Epithelial Cells - UA 0-5 SEEN /hpf (5-10)
== END | disposition home or self-care (01) ==
PROVIDERS: PCP Pediatrics; Visit Provider Physician Assistant Surgical
DX: N39.0 Urinary tract infection, site not specified (principal)
CPT/HCPCS: 81001

== ENCOUNTER → 2021-02-26 12:32 | Outpatient (CLI) | payer OTHER, SELFPAY ==
[2021-02-26 14:07] LABS: Hemoglobin A1c 5.1 % (3.8-5.6)
[2021-02-26 14:11] LABS: ALB/GLOB Ratio 0.9 RATIO (0.9-2.4); AST(SGOT) 12 U/L (15-37); Alanine Aminotransfer ALT/SGPT 19 U/L (13-56); Albumin, Serum 3.5 g/dL (3.2-5.0); Alkaline Phosphatase 65 U/L (45-117); Anion Gap 6 (5-15); BUN 10 mg/dL (7-18); BUN/Creat Ratio 13.6 RATIO (10-20); Calcium,Total 8.5 mg/dL (8.5-10.1); Chloride 107 mmol/L (98-107); Creatinine, Serum 0.74 mg/dL (0.55-1.02); EST Glomerular Filtration Rate 105 mL/min (>60); Est Glom Filt Rate - Afr Amer 128 mL/min (>60); Globulin 3.8 g/dL (2.2-4.2); Glucose 91 mg/dL (74-106); Potassium 4.3 mmol/L (3.5-5.1); Protein, Total 7.3 g/dL (6.4-8.2); Sodium Level 138 mmol/L (136-145); T4 Free Direct 0.95 ng/dL (0.76-1.46); Thyroid Stim Hormone (TSH) 0.98 uIU/mL (0.358-3.74)
== END ==
PROVIDERS: PCP Family Medicine; Referring Provider Family Medicine; Visit Provider Family Medicine
DX: E16.2 Hypoglycemia, unspecified (principal); R53.83 Other fatigue
CPT/HCPCS: 36415; 80053; 83036; 84439; 84443

== ENCOUNTER → 2021-10-17 | Outpatient (CLI) | payer OTHER, SELFPAY ==
--- NOTE | 2021-10-17 09:41 | RAD_ITS ---
STUDY: X-RAY - LUMBAR SPINE REASON FOR EXAM: Female, 20 years old. Right leg pain. TECHNIQUE: 2 view(s) of the lumbar spine were obtained. COMPARISON: None FINDINGS: There is straightening of the normal lumbar lordosis. There is no substantial scoliosis. There is a normal alignment of the vertebrae. Normal vertebral bodies and endplates. Mild degree of disc space narrowing at the L4-L5 and L5-S1 level. The soft tissue structures are unremarkable. RAD/Lumbar Spine 2 or 3 Views IMPRESSION: Straightening of the normal lumbar lordosis. Mild degree of disc space narrowing at the L4-L5 and L5-S1 levels. Electronically Signed: Higinio Vasques MD at 14:24 EDT ,
--- NOTE | 2021-10-17 10:44 | RAD_ITS ---
STUDY: X-RAY - PELVIS AND RIGHT HIP REASON FOR EXAM: Female, 20 years old. pain TECHNIQUE: 3 views of the pelvis and hip. COMPARISON: 02/03/2019 FINDINGS: There is a non-specific bowel gas pattern. Normal visualized soft tissue structures. Normal bilateral iliac wings, sacroiliac joints and visualized sacrum. Normal bilateral superior and inferior pubic rami. Normal pubic symphysis. Normal bilateral ischial tuberosities. Normal visualized femoral head. Normal acetabulum. Normal hip joint. RAD/HIP, UNI W/ Pelvis 2-3 Views IMPRESSION: Normal x-ray examination of the pelvis and hip. Electronically Signed: Simeon Barajas MD at 15:19 EDT ,
== END | disposition home or self-care (01) ==
PROVIDERS: PCP Family Medicine; Referring Provider Physician Assistant; Visit Provider Physician Assistant
DX: M54.50 Low back pain, unspecified (principal); M79.604 Pain in right leg
CPT/HCPCS: 72100; 73502

== ENCOUNTER 2021-10-31 15:20 | Outpatient (CLI) | payer OTHER, SELFPAY ==
--- NOTE | 2021-10-31 15:21 | MRI_ITS ---
STUDY: MRI LUMBAR SPINE WITHOUT CONTRAST REASON FOR EXAM: Female, 20 years old. Pain and paresthesias TECHNIQUE: Standardized fat and water weighted pulse sequences were obtained in the sagittal and axial planes COMPARISON: None FINDINGS: Normal lumbar lordosis. There is no substantial scoliosis. T12 vertebral body hemangioma. Normal conus medullaris that terminates at the level of T12-L1. T12-L3: Normal endplates. Normal disc height, hydration and morphology. Normal bilateral facet joints. Normal central canal and bilateral lateral recesses. Normal bilateral intervertebral neural foramina. L3-4: Normal endplates. Disc bulge and central protrusion with crowding of the lateral recesses. Normal bilateral facet joints. Mild spinal canal stenosis. Normal bilateral intervertebral neural foramina. L4-5: Normal endplates. Disc bulge and posterior annular fissure. Normal bilateral facet joints. Normal central canal and bilateral lateral recesses. Normal bilateral intervertebral neural foramina. L5-S1: Normal endplates. Disc extrusion with compression of the traversing right S1 nerve root in the lateral recess. Normal bilateral facet joints. Normal bilateral intervertebral neural foramina. Normal visualized sacral ala. There is mild paraspinal muscular atrophy. MRI/Spine Lumbar (Routine) IMPRESSION: Lower lumbar spine disc bulge with compression of the traversing right S1 nerve root in the lateral recess. Electronically Signed: Bebeto Rollins MD at 5:30 EDT ,
== END 2021-10-31 23:59 | disposition home or self-care (01) ==
LOC: MRI 15:21
PROVIDERS: PCP Family Medicine; Visit Provider Physician Assistant
DX: M79.604 Pain in right leg (principal)
CPT/HCPCS: 72148

== ENCOUNTER 2021-11-12 13:30 | Outpatient (RCR) | payer OTHER, SELFPAY ==
--- NOTE | 2021-09-17 17:08 | HP.PTEVAL ---
Patient's Visit Information JUAN WELCH is a 20 year old F referred to Physical Therapy by SONU Porter with a diagnosis of R greater trocanteric bursitis, post tib tendonitis, and IT band syndrome. Date of Evaluation: 09/17/21 Physical Therapist: Carlos Lo, PT, ATC - Visit Plan Frequency: 2-3x /Week Duration: 4-6 Weeks Plan: R LE stretching (IT band, HS's, and ankle dorsiflexion), R LE strengthening, stick and foam rolll out, balance and prorio, core strengthening, bike, and HEP - Subjective Pt reports she has had R knee pain for about one and a half months. Pt reports she stated out with exercising at a local gym and knows this is what originally caused her pain. Pt reports she may have pushed herself too hard and to fast. Pt notes her pain originated in the post aspect of her R knee. Pt reports after this pain began, she started to experience pain in the lateral aspect of her R knee, R lateral hip, and lateral R ankle. Pt reports she had R hip surgery 2 years ago where they fixed her labrum. This surgery resulted in R lateral thigh numbness. No other tingling or numbness in LE's. No sleep difficulty st this time secondary to pain. Pt reports her goal is to be able to go on hikes in the near future. Pt also wants to get back to her gym without limitations. 0/10 pain at rest, 7/10 with prlonged walking and standing. - Pain R leg pain Pain Intensity (Out of 10): 2 Pain Intensity Range: 7 - Objective Neuro: B LE sensation is WNL to light touch. B patellar tendon reflex= 2/3. Palpation: Pt is tender along the IT band, distal hamstrings, and medial ankle. ROM: L knee 0-130; R knee 0-115;l L ankle DF= 7, R ankle DF= 0. MMT: R knee flex and a ext= 4-/5. L LE 5/5 throughout. Flexibility: Pt is severely limited with HS's (45 degree extensor lag), post IT band test - Balance/Special Test Scores Lower Extremity Functional Score: 33 - Goals Goal 1:: Decrease R knee pain x 50% to aid with hiking activity Goal Time Frame: 4-6 Weeks Goal 2:: Increase R LE flexibility x 5-10 degrees in ankle and knee to aid with decreasing pain Goal Time Frame: 4-6 Weeks Goal 3:: Increase R knee strength to be equal to L knee to aid with return to gym activity without limitation Goal Time Frame: 4-6 Weeks Goal 4:: I with HEP Goal Time Frame: 4-6 Weeks - Rehabilitation Potential Physical Therapy Diagnosis: Pt has pain in various aspects of her R LE secondary to lack of flexibility in R LE and weakness in core Rehabilitation Potential: Good - Anticipated Interventions Patient/Client Instruction: Educate patient on: Condition, Plan of Care For the Purpose of:: To improve self management Therapeutic Exercise to Include: Strength training, Endurance training, Balance training, Flexibilty training, Passive ROM, Active ROM, Dynamic Lumbar Stabilization For the Purpose of:: To decrease pain, To increase ROM, To improve muscle performance and motor function Manual Therapy Techniques to Include: Soft tissue mobilization For the Purpose of:: To decrease pain Cryotherapy (ice pack, ice massage): Yes For the Purpose of:: To decrease pain Thank you for the opportunity to evaluate your patient. For Medicare and Medicare HMO plans, please review the plan of care and approve it. It will need to be FAXED BACK to us at [phone] for Medicare purposes. For Medicare only, by signing this I certify the plan of care. Please let me know if there are questions or concerns regarding this plan of care. Physician Signature: Date:
--- NOTE | 2021-10-08 16:02 | HP.PTREVAL ---
SONU Porter, It has been my pleasure to treat JUAN WELCH over the last 7 visits for R greater trocanteric bursitis, post tib tendonitis, and IT band syndrome. Please see the progress note below for an update on the physical therapy plan of care! Subjective: I feel like there is no difference since I started PT Objective/Function: R knee and hip pain / this date. R ankle ROM: DF= 2, PF=50. R LE 90/90 test demonstrates 55 degree lag. Pt is I with HEP Plan Plan: Follow up of discharge after Pt see's in one month Balance/Gait/Functional tests - Balance/Special Test Scores Lower Extremity Functional Score: 27 Goals Goal 1:: Decrease R knee pain x 50% to aid with hiking activity Goal Time Frame: 4-6 Weeks Goal Progress: Not Progressing Goal 2:: Increase R LE flexibility x 5-10 degrees in ankle and knee to aid with decreasing pain Goal Time Frame: 4-6 Weeks Goal Progress: Not Progressing Goal 3:: Increase R knee strength to be equal to L knee to aid with return to gym activity without limitation Goal Time Frame: 4-6 Weeks Goal Progress: Progressing Goal 4:: I with HEP Goal Time Frame: 4-6 Weeks Goal Progress: Goal Met Anticipated Interventions Patient/Client Instruction: Educate patient on: Condition, Plan of Care For the Purpose of:: To improve self management Therapeutic Exercise to Include: Strength training, Endurance training, Balance training, Flexibilty training, Passive ROM, Active ROM, Dynamic Lumbar Stabilization For the Purpose of:: To decrease pain, To increase ROM, To improve muscle performance and motor function Manual Therapy Techniques to Include: Soft tissue mobilization For the Purpose of:: To decrease pain Cryotherapy (ice pack, ice massage): Yes For the Purpose of:: To decrease pain Please do not hesitate to contact me at [phone] by phone or if you have questions or concerns regarding this new plan of care! Sincerely, Carlos Lo, PT, ATC
--- NOTE | 2021-11-12 14:03 | HP.PTDCSUM ---
It has been my pleasure to treat JUAN WELCH referred by SONU Porter, with the diagnosis of R greater trocanteric bursitis, post tib tendonitis, and IT band syndrome for a total of 8 visit(s). Discharge Date: Please see the following information for a summary of their discharge status. Subjective: I am mostly just stiff now R leg pain Pain Intensity (Out of 10): 1 % Improvement: 80 Objective/Function: R LE pain 1/10. R LE MMT is 5/5 throughout. R LE flexibility has not improved. Knee ext lag on 90/90 test is 45 degrees, R ankle DF ROM= 0. Pt is I with [facility] Goal 1:: Decrease R knee pain x 50% to aid with hiking activity Goal Progress: Goal Met Goal 2:: Increase R LE flexibility x 5-10 degrees in ankle and knee to aid with decreasing pain Goal Progress: Not Progressing Goal 3:: Increase R knee strength to be equal to L knee to aid with return to gym activity without limitation Goal Progress: Goal Met Goal 4:: I with [facility] Goal Progress: Goal Met Plan: Discharge to [facility] If there are questions or concerns regarding this patient's physical therapy, please feel free to call me at [phone]. Thank you for the referral of this patient. Sincerely, Carlos Lo, PT, ATC Balance/Gait/Functional tests - Balance/Special Test Scores Lower Extremity Functional Score: 26
== END 2021-11-12 14:33 | disposition home or self-care (01) ==
LOC: PT 13:30
PROVIDERS: PCP Family Medicine; Referring Provider Physician Assistant; Visit Provider Physician Assistant
DX: M76.821 Posterior tibial tendinitis, right leg (principal); M70.61 Trochanteric bursitis, right hip; M76.31 Iliotibial band syndrome, right leg; M76.32 Iliotibial band syndrome, left leg
CPT/HCPCS: 97110; 97140; 97161; 97164

== ENCOUNTER → 2021-12-11 | Outpatient (CLI) | payer OTHER, SELFPAY ==
[2021-12-13 22:06] LABS: Chlamydia By Nucleic Acid AMP Negative (Negative)
[2021-12-14 17:09] LABS: Gonococcus By Nucleic Acid AMP Negative (Negative)
[2022-02-17 18:54] LABS: HPV Reflexed? NOT INDICATED
== END | disposition home or self-care (01) ==
LOC: LABSPEC 16:08
PROVIDERS: PCP Family Medicine; Referring Provider Nurse Practitioner Women's Health; Visit Provider Nurse Practitioner Women's Health
DX: N89.8 Other specified noninflammatory disorders of vagina (principal); Z12.4 Encounter for screening for malignant neoplasm of cervix
CPT/HCPCS: 87070; 87205; 87491; 87591; 88175; G0145

== ENCOUNTER 2022-01-08 15:38 | Outpatient (CLI) | payer OTHER, SELFPAY | END 2022-01-08 23:59 | disposition home or self-care (01) | LOC: LABSPEC 15:39 | PROVIDERS: PCP Family Medicine; Referring Provider Nurse Practitioner Women's Health; Visit Provider Nurse Practitioner Women's Health | DX: N89.8 Other specified noninflammatory disorders of vagina (principal) | CPT/HCPCS: 87070; 87205 ==

== ENCOUNTER → 2022-01-22 | Outpatient (CLI) | payer OTHER, SELFPAY ==
[2022-01-23 00:08] LABS: Mucous, Urine 0 SEEN /hpf (<or=2+); Red Blood Cells-Urine 0 SEEN /hpf (0-5)
[2022-01-23 00:11] LABS: Color, Urine Yellow (Yellow); Glucose, Dipstick Normal (Normal); Ketone-Dipstick Negative (Negative); Leukocyte Esterase-Dipstick 25 /ul (Negative); Nitrite-Dipstick Negative (Negative); Occult Blood-Urine Negative /ul (Negative); Protein-Dipstick Negative (Negative); Specific Gravity, Urine 1.005 (1.002-1.030); Urine Bilirubin Dipstick Negative (Negative); Urine Clarity Clear (Clear); Urine Urobilinogen Normal (Normal)
[2022-01-23 00:19] LABS: Bacteria 1+ /hpf (None Seen); Squamous Epithelial Cells - UA 0-5 SEEN /hpf (5-10); White Blood Cells 0-5 SEEN /hpf (0-5)
== END | disposition home or self-care (01) ==
PROVIDERS: PCP Family Medicine; Referring Provider Physician Assistant; Visit Provider Physician Assistant
DX: R30.9 Painful micturition, unspecified (principal)
CPT/HCPCS: 81001; 87086

== ENCOUNTER 2022-03-21 03:24 | Emergency (ER) | payer OTHER, SELFPAY ==
[2022-03-21 03:26] VITALS: BP 134/115; PULSE 92; RESP 18; TEMP 36.9; O2SAT 100; BMI 42.6
[2022-03-21] MEDS: 0.9% Normal Saline 1,000 ML 999 ML IV (04:00)
[2022-03-21] MEDS: Ondansetron 4 MG/2 ML Vial IV (04:02)
[2022-03-21 04:06] LABS: Absolute Lymphocyte Count 3.56 X10^3/uL (0.83-4.51); Absolute Neutrophil Count 16.7 X10^3/uL (2.0-7.7); Basophil# 0.08 X10^3/uL; Basophil% 0.4 % (0-1); Eosinophil# 0.35 X10^3/uL; Eosinophils% 1.6 % (0-5); Hematocrit 39.4 % (37-47); Lymphocyte # 3.56 X10^3/ul (0.83-4.51); Lymphocyte % 16.3 % (19-41); Mean Corpuscular Hgb 27.4 pg (27.0-32.0); Mean Corpuscular Volume 83.1 fL (81-99); Monocyte# 1.03 X10^3/uL; Monocyte% 4.7 % (0-10); NRBC Flagged by Analyzer 0 % (0-5); Neutrophil # 16.72 X10^3/uL (2.7-7.7); Neutrophil % 76.5 % (47-70); Platelet Count 351 K/mm3 (150-450); RBC Distribution Width CV 12.7 % (11.6-14.6); RBC Distribution Width SD 38.2 fl (35.1-43.9); Red Blood Count 4.74 M/mm3 (4.2-5.4); White Blood Count 21.8 K/mm3 (4.4-11.0)
[2022-03-21 04:15] LABS: Internal QC Validated? YES +Cl - CLEAR BKGD; Pregnancy, Serum, hCG Quali. NEGATIVE Negative
[2022-03-21 04:19] LABS: Anion Gap 7 (5-15); BUN 5 mg/dL (7-18); BUN/Creat Ratio 6.2 RATIO (10-20); Calcium,Total 8.7 mg/dL (8.5-10.1); Chloride 108 mmol/L (98-107); Creatinine, Serum 0.81 mg/dL (0.55-1.02); EST Glomerular Filtration Rate 94 mL/min (>60); Est Glom Filt Rate - Afr Amer 114 mL/min (>60); Estimated Creatinine Clearance 105.94 ml/min; Glucose 120 mg/dL (74-106); Sodium Level 141 mmol/L (136-145)
[2022-03-21 04:35] LABS: Lactic Acid 2.3 mmol/L (0.4-1.9)
--- NOTE | 2022-03-21 05:04 | CT_ITS ---
INDICATION: back pain EXAMINATION: CT LUMBAR SPINE - CT Spine Lumbar W/ Contrast Injection TECHNIQUE: Helically acquired images were obtained of the lumbar spine. 2D reformats were reviewed. A radiation dose optimization technique was used for this scan. IV Contrast dosage and agent: 100 mL [id number]-370. COMPARISON: Lumbar spine MRI October 31, 2021. FINDINGS: VERTEBRAE: No fracture or compression deformity. No discrete lytic or blastic abnormality observed. Normal alignment. DISCS and SPINAL CANAL: No paravertebral soft tissue inflammation. Scattered lumbar epidural air extending cephalad up to the superior study margin compatible with history of recent epidural and blood patch. No focal epidural fluid collection is seen to suggest abscess Large broad-based posterior disc protrusion L5-S1 with severe spinal canal stenosis not significantly changed from October 31 2021 MRI. Moderate broad-based posterior inferior disc extrusion L3-4 with moderate spinal canal stenosis, stable to mildly increased from October 31, 2021 small posterior disc bulge L4-5 mild spinal canal narrowing not significantly changed from prior exam. There is mild neural foraminal narrowing bilaterally at L5-S1.. VISUALIZED ABDOMEN: Visualized abdominal aorta is not dilated. Right ovarian 6 cm cyst partially seen CT/Spine Lumbar WITH Contrast IMPRESSION: Scattered epidural foci of air compatible with history of recent epidural and blood patch. No focal epidural fluid collection is suggested to suggest abscess formation. No evidence of osseous destructive process Multivessel posterior disc herniation with severe spinal stenosis at L5-S1 and moderate spinal stenosis at L3-4, stable to mildly worsened from prior MRI. MRI could further evaluate as clinically indicated. No evidence of acute lumbar spinal fracture or spondylolisthesis. Partially seen 6 cm right ovarian cyst with small volume dependent fluid in the pelvis. Consider pelvic ultrasound to better characterize and assess vascular status. Electronically Signed: Greg Maldonado MD at 5:56 EST ,
--- NOTE | 2022-03-21 06:22 | EDS_ITS ---
HPI History of Present Illness Chief Complaint: Back Narrative Narrative: Patient is a 21-year-old female with past medical history of lumbosacral disc herniation. She has recurrent back pain secondary to this and underwent a epidural for treatment of this about 5 to 7 days ago. She states she developed a postoperative epidural leak and then had a blood patch done recently as well. She states despite this she still having back pain and having bouts of nausea and vomiting and therefore comes in for evaluation. She denies any fevers or chills loss of bowel or bladder control or IV drug use [facility] Medical History (Updated 03/21/22 @ 06:[address] Tarun Vargas, DO) Anxiety and depression Depression IC (interstitial cystitis) UTI (urinary tract infection) Home Medications promethazine 25 mg tablet 25 mg PO TID PRN nausea and vomiting #21 tabs 03/21/22 [Rx Last Taken Unknown] Allergy/AdvReac Type Severity Reaction Status Date / Time No Known Allergies Allergy Verified 03/21/22 03:25 Family History Unknown Diabetes Hypertension Social History (Updated 02/20/22 @ 14:15 by Jahaira Plaza) Smoking Status: Never smoker alcohol intake: never substance use type: marijuana caffeine: Yes what type of physical activity do you participate in: walking frequency: 5-6 times per week seatbelt use: always do you feel safe at home: Yes additional social history: oren orozco [facility] ED Constitutional Constitutional ED: Denies chills or fever(s) ENT ENT ED: Denies sore throat Cardiovascular Cardiovascular: Denies chest pain Respiratory/Chest Respiratory/Chest: Denies cough or dyspnea Gastrointestinal Gastrointestinal: Reports nausea and vomiting; Denies abdominal pain or diarrhea Genitourinary Genitourinary ED: Denies dysuria or hematuria Musculoskeletal Musculoskeletal: Reports back pain; Denies myalgias Integumentary Denies rash Neurologic Neurologic: Denies headache(s) or paresthesias Hematologic/Lymphatic Hematologic/Lymphatic: Denies easy bleeding or easy bruising EXAM Physical Exam Const Vital Signs: 03/21/22 03:26 03/21/22 06:50 Temperature 98.5 F Temperature Source Oral Pulse Rate 92 86 Respiratory Rate 18 19 H Blood Pressure 134/115 H 121/73 H Blood Pressure Mean 121 Pulse Ox 100 98 Oxygen Delivery Method Room Air Positive well nourished and well developed General Appearance ED: well developed HEENT Reports dry mucous membranes Mouth ED: Yes dry mucous membranes Mouth: dry mucous membranes Eyes PERRL and EOMs intact bilaterally Neck supple Resp normal respiratory effort and clear to auscultation bilaterally Cardio regular rate and regular rhythm GI normal to inspection, nondistended, normoactive bowel sounds, non-tender, non- distended and no masses GI Narrative: No voluntary guarding or rigidity no pulsatile mass Auscultation: normoactive bowel sounds Palpation: soft Back/Spine Back/Spine Narrative: No bony deformity or step-off of the thoracic or lumbar spine. Patient has 2 pinpoint scabs consistent with her recent epidural and blood patch. There is no surrounding erythema or warmth no discharge or lymphangitic streaking. Patient does have mild pain on palpation at the site however there are no masses noted. Extremity normal to inspection Neuro oriented x3 and CN's II-XII intact bilaterally Sensorium / Orientation: alert Psych mental status grossly normal Skin no rashes or lesions noted Skin Narrative: Skin turgor slightly increased MDM MDM MDM Narrative Medical decision making narrative: Patient presented to the ER afebrile and her symptoms appear to be more consistent with a viral syndrome then related to her recent epidural blood patch as the patient is afebrile and the skin around the injection site appears very normal. Basic blood work was obtained and does show leukocytosis at 21.8 with elevation to her CRP as well as mild lactic acidosis. Secondary to these findings and negative flu swabs I did elect to perform a CT with IV contrast of the lumbar spine. This showed changes consistent with recent epidural blood patch but no abscess formation. Accidentally it did note a right ovarian cyst but patient does not have any abdominal pain and therefore do not feel it warrants emergent ultrasound. Patient was given IV fluids and Zofran had no further bouts of vomiting while in the ER. I discussed the case with her pain management physician who agrees that as the site looks normal and the CAT scan does not reveal any obvious hematoma or abscess formation that she can follow-up on an outpatient basis. The plan of care was discussed with the patient and she is agreeable to it and she will be given Phenergan to help control any further bouts of nausea and vomiting but is otherwise safe for discharge. Lab Data Attestation: I reviewed the patient's lab results. Labs: Laboratory Results - last 24 hr 03/21/22 03/21/22 03/21/22 03:59 03:59 03:59 WBC 21.8 H RBC 4.74 Hgb 13.0 Hct 39.4 MCV 83.1 MCH 27.4 MCHC 33.0 RDW Std Deviation 38.2 RDW Coeff of Lisa 12.7 Plt Count 351 MPV 10.0 Immature Gran % (Auto) 0.500 Neut % (Auto) 76.5 H Lymph % (Auto) 16.3 L Mesa % (Auto) 4.7 Eos % (Auto) 1.6 Baso % (Auto) 0.4 Absolute Neuts (auto) 16.7 H Absolute Lymphs (auto) 3.56 Nucleated RBC % 0 Sodium 141 Potassium 4.0 Chloride 108 H Carbon Dioxide 26.0 Anion Gap 7 BUN 5 L Creatinine 0.81 Estim Creat Clear Calc 105.94 Est GFR (MDRD) Af Amer 114 Est GFR (MDRD) Non-Af 94 BUN/Creatinine Ratio 6.2 L Glucose 120 H Lactic Acid 2.3 H* Calcium 8.7 C-React Prot Ext Range 51.00 H Serum , Qual 03/21/22 03:59 WBC RBC Hgb Hct MCV MCH MCHC RDW Std Deviation RDW Coeff of Lisa Plt Count MPV Immature Gran % (Auto) Neut % (Auto) Lymph % (Auto) Mesa % (Auto) Eos % (Auto) Baso % (Auto) Absolute Neuts (auto) Absolute Lymphs (auto) Nucleated RBC % Sodium Potassium Chloride Carbon Dioxide Anion Gap BUN Creatinine Estim Creat Clear Calc Est GFR (MDRD) Af Amer Est GFR (MDRD) Non-Af BUN/Creatinine Ratio Glucose Lactic Acid Calcium C-React Prot Ext Range Serum , Qual NEGATIVE Radiography Diagnostic Testing: Clinical Impression(s) from Imaging Studies Lumbar Spine CT 03/21/22 05:04 IMPRESSION: Scattered epidural foci of air compatible with history of recent epidural and blood patch. No focal epidural fluid collection is suggested to suggest abscess formation. No evidence of osseous destructive process Multivessel posterior disc herniation with severe spinal stenosis at L5-S1 and moderate spinal stenosis at L3-4, stable to mildly worsened from prior MRI. MRI could further evaluate as clinically indicated. No evidence of acute lumbar spinal fracture or spondylolisthesis. Partially seen 6 cm right ovarian cyst with small volume dependent fluid in the pelvis. Consider pelvic ultrasound to better characterize and assess vascular status. Electronically Signed: Greg Maldonado MD at 5:56 EST , Discharge Plan Triage Chief Complaint: Back ED Provider: Tarun Vargas Dx/Rx/DC Orders Clinical Impression: Nausea & vomiting, Postoperative back pain Instructions: ED Vomiting (Adult) Prescriptions: New promethazine 25 mg tablet 25 mg PO TID PRN (Reason: nausea and vomiting) Qty: 21 0RF Primary Care Provider: Mitesh Wyman Referrals: Mitesh Wyman MD [Primary Care Provider] - Activity Restrictions/Additional Instructions: Please take the Phenergan as directed to help control your nausea and vomiting. Keep yourself well-hydrated and make sure you follow-up with your pain management physician for repeat evaluation and return to the ER should you have any further concerns or worsening of symptoms Disposition Disposition: Home, Self Care Discharge Date/Time: 03/21/22 06:51
[2022-03-21] MEDS: proCHLORPERazine 10 MG/2 ML Vial IV (06:41)
[2022-03-21 06:50] VITALS: BP 121/73; PULSE 86; RESP 19; O2SAT 98
[2022-03-21 08:04] LABS: Reflex Lactate? Y
== END 2022-03-21 06:51 | disposition home or self-care (01) ==
PROVIDERS: Emergency Provider Emergency Medicine; PCP Family Medicine; Visit Provider Emergency Medicine
DX: R11.2 Nausea with vomiting, unspecified (principal); G89.18 Other acute postprocedural pain; M54.9 Dorsalgia, unspecified; E87.20 Acidosis, unspecified; N83.201 Unspecified ovarian cyst, right side
CPT/HCPCS: 72132; 80048; 83605; 84703; 85025; 86140; 87428; 96374; 96375; 99283; J7030; Q9967; A4216; J2405

== ENCOUNTER 2022-04-28 11:52 | Observation (INO) | payer OTHER, SELFPAY ==
--- NOTE | 2022-03-26 16:19 | EKG12_ITS ---
Test Reason : PREOP Blood Pressure : / mmHG Vent. Rate : 131 BPM Atrial Rate : 131 BPM P-R Int : 122 ms QRS Dur : 076 ms QT Int : 300 ms P-R-T Axes : 048 120 023 degrees QTc Int : 443 ms Sinus tachycardia Otherwise normal ECG Confirmed by ROLANDO GARCIA, KATY ([id number]), script editor LEO MATHEW ([id number]) on 03/27/2022 10:38:34 AM Referred By: Joshua Duarte Confirmed By:KATY MARSHALL MD
[2022-03-26 17:03] LABS: Absolute Lymphocyte Count 2.67 X10^3/uL (0.83-4.51); Absolute Neutrophil Count 9.2 X10^3/uL (2.0-7.7); Basophil# 0.07 X10^3/uL; Basophil% 0.5 % (0-1); Eosinophil# 0.46 X10^3/uL; Eosinophils% 3.4 % (0-5); Hematocrit 40.1 % (37-47); Hemoglobin 12.8 g/dL (12.0-15.0); Lymphocyte # 2.67 X10^3/ul (0.83-4.51); Lymphocyte % 19.9 % (19-41); Mean Corp Hgb Conc 31.9 g/dL (32-36); Mean Corpuscular Hgb 26.8 pg (27.0-32.0); Mean Corpuscular Volume 84.1 fL (81-99); Mean Platelet Vol. 10.1 fl (6.2-12.0); Monocyte# 0.96 X10^3/uL; Monocyte% 7.2 % (0-10); NRBC Flagged by Analyzer 0 % (0-5); Neutrophil # 9.19 X10^3/uL (2.7-7.7); Neutrophil % 68.6 % (47-70); Platelet Count 366 K/mm3 (150-450); RBC Distribution Width CV 12.8 % (11.6-14.6); RBC Distribution Width SD 38.8 fl (35.1-43.9); Red Blood Count 4.77 M/mm3 (4.2-5.4); White Blood Count 13.4 K/mm3 (4.4-11.0)
[2022-03-26 17:33] LABS: Anion Gap 4 (5-15); BUN 7 mg/dL (7-18); BUN/Creat Ratio 10.4 RATIO (10-20); Calcium,Total 8.8 mg/dL (8.5-10.1); Chloride 109 mmol/L (98-107); Creatinine, Serum 0.68 mg/dL (0.55-1.02); EST Glomerular Filtration Rate 116 mL/min (>60); Est Glom Filt Rate - Afr Amer 140 mL/min (>60); Glucose 104 mg/dL (74-106); Potassium 4.1 mmol/L (3.5-5.1); Sodium Level 140 mmol/L (136-145)
[2022-03-26 17:34] LABS: Magnesium 2.1 mg/dL (1.6-2.6)
[2022-03-26 18:23] LABS: HIV - WCH Non-Reactive (Nonreactive); Hepatitis B Surface Antibody Non-Reactive; Hepatitis C Antibody Non-Reactive (Nonreactive)
[2022-03-28 11:11] LABS: Hepatitis A AB, Total Negative (Negative)
--- NOTE | 2022-04-02 14:38 | PCM.HP.BLA ---
History and Physical MR#: [id number] Acct: [id number] Name:JUAN JIM Rep #: [id number] : 2000 ? ? Provider: Dr. Joshua Duarte, DO Age/Sex:? 21/F ? ? Location: [facility] [place] Status: Signed Intake Intake Visit Reasons:?Lumbar pain Allergies No Known Allergies Allergy Medications aloe vera 3 cap PO DAILY 11/24/20 [History Confirmed 12/06/21] lactobacillus combination no.4 3 billion cell capsule (Probiotic) 3,000 mmu cells PO DAILY 09/16/21 [History Confirmed 12/06/21] meloxicam 15 mg tablet 15 mg PO DAILY #30 tabs 09/17/21 [Rx Confirmed 12/06/21] prednisone 10 mg tablet 10 mg PO DAILY #42 tabs 10/17/21 [Rx Confirmed 12/06/21] tizanidine 2 mg capsule 2 mg PO Q8H PRN muscle spasticity #30 caps 10/17/21 [Rx Confirmed 12/06/21] PFSH Medical History? Anxiety Anxiety and depression Depression IC (interstitial cystitis) Family History? Unknown Diabetes Hypertension (Reviewed Smoking Status:? Never smoker alcohol intake:? never substance use type:? does not use caffeine:? Yes what type of physical activity do you participate in:? walking frequency:? 5-6 times per week seatbelt use:? always do you feel safe at home:? Yes additional social history:? oren REYNA Low back pain Details: Parts of this documentation were recorded by a scribe, this documentation accurately reflects the service provided and the decisions made by me, Dr. Joshua Duarte, DO JUAN WELCH is a 21 year old F here today for ongoing low back pain. Patient has a history of lumbar strain and right hip impingement syndrome along with a right hip labral repair?in 2019. She complains of low back and right buttock pain that radiates down her posterior thigh into her knee. She states that she also has right lateral thigh numbness and numbness over the lateral side of her right foot. Patient has been treated by SONU De La Rosa in the office who recently ordered an MRI of her lumbar spine. The MRI reveals at L3-L4, she does have some abnormality of the disc but it seems to be much more of a problem at L5-S1. Patient has participated in physical therapy without any relief. Patient was set up with pain management for an injection into the L5-S1 disc space. Patient states that she still is having pain after the injections but it is mostly in her leg. States she doesn't know if it is back related. States that she was having some tendonitis issues. States that she doesn't take anything for the pain. States that she uses heat for her back and ice for her knee which is helpful. Both is a delight for young lady 21 years old who presents in the company of her friend.? She states that she started having the pain in the right buttocks right thigh right leg and outside of the right foot about 4 months ago.? She has had low back issues for many many years.? Overall her leg pain is significantly worse than any back pain that she has.? She states that her low back and of itself does not bother her very much.? She denies any bowel or bladder dysfunction.? She denies history of unexplained weight loss night fever sweats or chills. On examination she has positive straight leg raising on the right side.? She has pain down the leg with extension may be even more than flexion but pain with both.? She has good motor strength in all the major muscle groups of both lower extremities.? Her right Achilles reflex is nearly absent her while her left 1 is 2+.? She has no muscle atrophy.? She has no long tract signs.? Clonus is absent Babinski's are downgoing. Plain x-rays of the lumbar spine taken a few weeks ago demonstrate decreased disc spaces at L4-5 and L5-S1 otherwise unremarkable.? I reviewed the MRI scan that was done recently.? She has 3 bad disks at L3 445 and L5-S1.? There is a central protrusion at 3 4 but a significant herniation at L5-S1 more to the right side consistent with her obvious S1 radiculopathy.? I told her that surgical intervention is reasonable.? If she decides on that all I would do was a simple laminectomy on the right at L5-S1 with partial discectomy to remove the pressure off the S1 nerve root.? She is not a candidate for an artificial disc or a fusion because she has 2 abnormal levels above it.? In addition her main pain is not back its buttocks thigh and leg.? So that the surgery that we would do if we should decide to do that.? She also understands that she would have a 20 to 25% chance that it would recur again at some point especially in a young person.? She will go home and think about it.? We did give her a walker with a seat on it for use as she cannot stand for long or walk for a long period.? I will see her on a as needed basis. Coding Level of Care Code Off vis,new,level 3 Diagnoses Low back pain? M54.50 Lumbosacral disc herniation? M51.27
[2022-04-28] VITALS (9 sets, daily range): BP systolic 115–142; BP diastolic 63–100; PULSE 86–115; RESP 16–26; TEMP 36.6–37.3; O2SAT 96–100; BMI 42.1; BMI 41.5
[2022-04-28 09:15] LABS: Internal QC Validated? YES +Cl - CLEAR BKGD; Pregnancy, Urine Negative Negative
[2022-04-28] MEDS: Lactated Ringers 1,000 ML 15 ML IV (09:27)
[2022-04-28] MEDS: Magnesium 1 GM over 15 mins IV (09:28)
[2022-04-28] MEDS: Acetaminophen 500 MG Tablet 1000 MG PO ×3 (09:33→20:58)
[2022-04-28 10:06] LABS: Bedside Glucose 144 mg/dL (74-106)
[2022-04-28] MEDS: Lactated Ringers 1,000 ML 100 ML IV ×2 (13:40→22:52)
--- NOTE | 2022-04-28 13:45 | SUR.PHASEI ---
PACU ARRIVAL, SURGERY ABORTED AFTER INDUCTION FOR POSSIBLE BRONCHOSPASM WHILE ATTEMPTING TO REPOSITION PATIENT FOR SURGERY. PATIENT AWAKE, CRYING, UPSET. DENIES CHEST PAIN, SHORTNESS OF BREATH, DIFFICULTY BREATHING, LUNGS CLEAR. DR CASTRO AT BEDSIDE, ORDERS EKG, DUONEB AEROSOL TX, PA & LATERAL CXR. PATIENT DOES REPORT RIGHT KNEE PAINFUL BUT STATES THIS PAIN IS CHRONIC.
--- NOTE | 2022-04-28 13:46 | EKG12_ITS ---
Test Reason : POST OP Blood Pressure : / mmHG Vent. Rate : 121 BPM Atrial Rate : 121 BPM P-R Int : 130 ms QRS Dur : 074 ms QT Int : 344 ms P-R-T Axes : 052 090 016 degrees QTc Int : 488 ms Sinus tachycardia R>S in V1: Consider lead placement; normal variant; early transition; isolated posterior SD of undete rmined age Confirmed by ROLANDO GARCIA, KATY ([id number]), field map editor LEO MATHEW ([id number]) on 05/01/2022 11:40:12 AM Referred By: Joshua Duarte Confirmed By:KATY MARSHALL MD
[2022-04-28] MEDS: Ipratropium/Albuterol Sulfate 3 ML AMPUL.NEB INHALATION (13:55)
--- NOTE | 2022-04-28 14:29 | RAD_ITS ---
STUDY: X-RAY CHEST REASON FOR EXAM: Female, 21 years old. Post-op possible bronchospasm TECHNIQUE: PA and lateral views of the chest. COMPARISON: None. FINDINGS: The lungs are clear and expanded. There is no demonstrated pleural abnormality. Normal size heart. Normal mediastinum and jenny. Normal visualized pulmonary arteries. Normal visualized aortic arch and descending thoracic aorta. Normal visualized thoracic spine. Normal visualized ribs, clavicles, and shoulders. There is no demonstrated abnormality of the visualized soft tissue structures of the upper abdomen. RAD/Chest PA and Lateral IMPRESSION: Normal x-ray examination of the chest. Electronically Signed: Higinio Vasques MD at 15:28 EST ,
--- NOTE | 2022-04-28 14:32 | CON.PCM.HO_ITS ---
Assessment & Plan Assessment/Plan (1) Sinus tachycardia: (2) Hypoxia: PLAN: Plan #Hypoxia * likely due to obesity hypoventilation syndrome and DALLIN * patient became hypoxic after she underwent general anesthesia; surgery for lumbar spine stenosis was therefore cancelled * Denies history of PE or being on oral contraceptive pills. She is quite obese * patient snores and also admits to apneic episodes during the night as related to her by her girlfriend * currently on room air * breathing treatment with bronchodilators * check D dimer. * get chest xray * will get pulmonology to see her only so she can be evaluated quickly on outpatient basis in anticipation of rescheduling of her surgery * #Sinus tachycardia * patient is tachycardic. EKG showed sinus tachycardia with HR of 131. * EKG from March 2022 did also show sinus tachcyardia * admits to occasional palpitations * check TSH and d dimer. * will order 2D echo * will monitor HR; if need be, will initiate low dose beta sandra to help with it * #Anxiety: * to severe anxiety, though she is not on any meds for it. * TO follow up with PCP on outpatient basis for initiation of treatment as needed * #Spinal stenosis: surgery canceled today due to hypoxia. Management as per primary team spine surgery DVT prophylaxis: SCDs, as per primary team. Thank you for the courtesy of the consult. Please do not hesitate to reach out to the hospitalist team with any questions or concerns. We will continue to follow with you. HPI Consult Data Date of Consult: 04/28/22 HPI Narrative Reason for Consultation: MEDICAL MANGEMENT, HYPOXIA HPI Narrative: JUAN WELCH, is a 21 F with past goal history as outlined who presented for lumbar spine surgery for lumbar spine stenosis on 04/08/2022. However after being put under anesthesia patient became hypoxic and tachycardic so surgery was can celed. Hospitalist service was consulted for management of hypoxia and sinus tachycardia. Patient was seen and examined in the PACU. She denied any shortness of breath, palpitations, dizziness, chest pain, abdominal pain, nausea vomiting or diarrhea. She had not had any recent long distance travel and denied being on any oral contraceptive pills. She denied any history of DVT or PE. Patient is quite obese and states that her girlfriend has told her that she occasionally stops breathing when she is sleeping. She says she is also been snoring since her childhood. She has never been diagnosed with obesity hypoventilation syndrome or sleep apnea and says she had previous hip surgery for which she underwent general anesthesia was not told that she had any complications from it. She admits to severe anxiety. Review of systems otherwise negative. Vitals were blood pressure 136/90, pulse rate of 93, respiratory rate of 18 and temperature of 99.1 Fahrenheit. She was saturating at 99% on room air. EKG did show sinus tachycardia with heart rate of 121. Previous EKG from March 2022 also shows sinus tachycardia with heart rate around 131. She has been admitted to be managed for sinus tachycardia and hypoxia likely due to obesity hypoventilation syndrome and sleep apnea. [facility] Medical History Anxiety and depression Back pain History of pain when walking History of steroid therapy IC (interstitial cystitis) Marijuana use Non-smoker Pain Shortness of breath on exertion UTI (urinary tract infection) Home Medications NK 03/26/22 [History Last Taken Unknown] Allergy/AdvReac Type Severity Reaction Status Date / Time No Known Allergies Allergy Verified 04/28/22 09:09 Family History Unknown Diabetes Hypertension Surgical History History of hip surgery Social History Smoking Status: Never smoker alcohol intake: never substance use type: marijuana caffeine: Yes what type of physical activity do you participate in: walking frequency: 5-6 times per week seatbelt use: always do you feel safe at home: Yes additional social history: oren SINGH Constitutional Constitutional: Denies anorexia, chills, fatigue, fever(s), malaise or weakness Eyes Eyes: Denies change in vision ENT HEENT: Denies dysphagia, headache(s), nasal congestion, sinus pressure or sore throat Cardiovascular Cardiovascular: Reports palpitations and rapid heart rate; Denies chest pain, dyspnea on exertion, edema, lightheadedness, orthopnea, paroxysmal nocturnal dyspnea or syncope Respiratory/Chest Respiratory/Chest: Denies cough, productive cough, shortness of breath at rest, shortness of breath with exertion or wheezing Gastrointestinal Gastrointestinal: Denies constipation, diarrhea, nausea or vomiting Genitourinary Genitourinary: Denies dysuria Musculoskeletal Musculoskeletal: Denies arthralgias or joint pain Neurologic Neurologic: Denies confusion, dizziness, focal weakness, headache(s), numbness, seizure-like activity, seizures, syncope, tingling or tremor(s) Psychiatric Psychiatric: Denies anxiety or depression Hematologic/Lymphatic Hematologic/Lymphatic: Denies anemia Physical Exam Const alert, oriented x3 and no apparent distress Constitutional Narrative: morbidly obese General Appearance: cooperative HEENT normocephalic, head/scalp atraumatic, hearing grossly normal bilaterally and moist oral mucous membranes Mouth: oral and palatal mucosa normal Eyes EOMs intact bilaterally and conjunctivae normal Neck no lymphadenopathy and supple Resp normal respiratory effort, no retractions, no use of accessory muscles and clear to auscultation bilaterally Cardio regular rhythm, S1 normal heart sound, S2 normal heart sound and no murmurs Cardio Narrative: sinus tachycardia GI normal to inspection, nondistended, normoactive bowel sounds, soft to palpation, non-tender and non-distended Extremity normal to inspection, full ROM and no clubbing, cyanosis or edema Neuro oriented x3, CN's II-XII intact bilaterally, moves all extremities and no focal motor deficits Sensorium / Orientation: awake and alert Motor Exam: strength 5/5 throughout Psych affect normal Lab / Micro Data Result Diagrams: 03/26/22 16:39 03/26/22 16:39 Labs: Laboratory Results - last 24 hr 04/28/22 08:50: Urine Test Negative 04/28/22 09:43: POC Glucose 144 H Charges/Coding Visit Charges Office Visits / Consults: [id number] IP Consult L5
--- NOTE | 2022-04-28 15:10 | ECHOD_ITS ---
Reason For Study: SINUS TACHYCARDIA Procedure This was a 2D Doppler, Color Flow transthoracic echocardiogram. The study was technically difficult. Contrast injection was performed. Exam performed portable in patient room. Left Ventricle Normal LV size. Left ventricular systolic function is normal. The estimated ejection fraction is 60 %. No evidence for diastolic dysfunction. No regional wall motion abnormalities noted. Right Ventricle Normal RV size. Normal systolic function. Atria Normal left atrium. Normal right atrium. No doppler evidence for ASD. Bubble contrast study negative for right to left interatrial shunt. Mitral Valve There is no mitral annular calcification. Normal mitral valve. Trivial mitral valve insufficiency. Tricuspid Valve Normal tricuspid valve. Aortic Valve The aortic valve is not well visualized. Pulmonic Valve The pulmonic valve is not well visualized. Great Vessels Normal sized aortic root. Pericardium/Pleural No pericardial effusion. Medication Diluted definity 2ml given slow IV push to enhance endocardial definition. Performed a rapid injection of agitated mix of 9 cc saline and 1cc air to assess for atrial septal defect. MMode/2D Measurements & Calculations LVIDd: 3.8 cm IVSd: 1.1 cm Ao root diam: 2.3 cm LVIDs: 2.6 cm LVPWd: 1.3 cm FS: 32.8 % LAV(MOD-sp4): 24.8 ml LVAd ap4: 38.3 cm2 SV(MOD-sp4): 72.8 ml LVLd ap4: 9.3 cm EDV(MOD-sp4): 126.2 ml EDV(sp4-el): 133.4 ml LVAs ap4: 22.6 cm2 LVLs ap4: 7.8 cm ESV(MOD-sp4): 53.4 ml ESV(sp4-el): 55.6 ml EF(MOD-sp4): 57.7 % EF(sp4-el): 58.3 % SV(sp4-el): 77.8 ml LA A4 area: 12.6 cm2 LA dimension(2D): 3.4 cm RA A4 area: 11.0 cm2 Time Measurements MV dec time: 0.10 sec Doppler Measurements & Calculations MV E max ricardo: 104.4 cm/sec Lat Peak E' Ricardo: 17.5 cm/sec Med Peak E' Ricardo: 10.5 cm/sec MV A max ricardo: 81.3 cm/sec E/E' lat: 6.0 E/E' med: 9.9 MV E/A: 1.3 MV V2 max: 107.8 cm/sec MV dec slope: 1167 cm/sec2 Ao V2 max: 114.4 cm/sec MV max P.7 mmHg Ao max P.2 mmHg MV V2 mean: 77.0 cm/sec Ao V2 mean: 79.9 cm/sec MV mean P.6 mmHg Ao mean P.9 mmHg MV V2 VTI: 28.0 cm Ao V2 VTI: 23.9 cm AV (velocity ratio): 0.90 LV V1 max: 97.8 cm/sec PA V2 max: 79.4 cm/sec LV V1 max P.8 mmHg PA V2 mean: 57.2 cm/sec LV V1 mean P.4 mmHg LV V1 mean: 73.6 cm/sec LV V1 VTI: 21.6 cm ECHO/Echo Complete W/ Contrast Interpretation Summary The study was technically difficult. Contrast injection was performed. Left ventricular systolic function is normal. The estimated ejection fraction is 60 %. Trivial mitral valve insufficiency. No evidence for diastolic dysfunction. Ordering Physician: Courtney Bustamante Referring Physician: Joshua Duarte Performed By: Cinthia Chapin RCS
[2022-04-28 17:33] LABS: D-Dimer Quantitative (DVT/PE) 0.28 FEU/ug/m (0.27-0.49)
[2022-04-28 17:45] LABS: Thyroid Stim Hormone (TSH) 1.29 uIU/mL (0.358-3.74)
[2022-04-29 03:00] VITALS: BP 105/65; PULSE 81; RESP 18; TEMP 36.9; O2SAT 97
[2022-04-29] MEDS: Acetaminophen 500 MG Tablet 1000 MG PO ×2 (05:51→14:42)
[2022-04-29 07:16] VITALS: O2SAT 97
--- NOTE | 2022-04-29 07:34 | PN.HOSP_ITS ---
Subjective Subjective Follow-up hypoxia Objective Data Objective Data Vital Signs: Vital Signs Temp Pulse Resp BP Pulse Ox O2 Del Method O2 Flow Rate 98.4 F 81 18 105/65 97 Room Air 15 04/29/22 03:00 04/29/22 03:00 04/29/22 03:00 04/29/22 03:00 04/29/22 03:00 04/29/22 03:00 04/28/22 13:45 Oxygen Flow Rate (L/min) 15 Oxygen Delivery Method Room Air Weight: 120.2 kg Body Mass Index (BMI) 41.5 Intake & Output: Intake and Output for Last 24 Hours 04/27/22 04/28/22 04/29/22 23:59 23:59 23:59 Intake Total 2021 / 2521 500 / 500 Output Total 575 / 575 Balance 144 / 1946 500 / 500 Lab / Micro Data Result Diagrams: 03/26/22 16:39 03/26/22 16:39 Labs: Laboratory Results - last 24 hr 04/28/22 08:50: Urine Test Negative 04/28/22 09:43: POC Glucose 144 H 04/28/22 16:38: D-Dimer Quant (PE/DVT) 0.28 04/28/22 16:38: TSH 1.29 Micro: Microbiology 03/26/22 16:39 Swab (Method) Nasal Screen MRSA/MSSA - Final Radiography Diagnostic Testing: Radiology Impression Chest X-Ray 04/28/22 14:29 IMPRESSION: Normal x-ray examination of the chest. Electronically Signed: Higinio Vasques MD at 15:28 EST , Physical Exam Narrative GENERAL: cooperative HEENT: Atraumatic; normocephalic EYES; Anicteric, Normal Conjunctiva NECK; supple, normal thyroid, RESPIRATORY: Diminished to auscultation CARDIOVASCULAR: Regular S1 S2, GI: soft, normoactive bowel sounds, : No Renal angle tenderness; EXTREMITIES: No edema, no clubbing, MUSCULOSKELETAL: no muscle wasting NEURO: Awake; no lateralizing signs. SKIN: No Rash PSYCH; Flat affect Assessment & Plan Assessment/Plan (1) Sinus tachycardia: (2) Hypoxia: PLAN: Plan Patient is a 21-year-old lady who became hypoxic prior to undergoing discectomy for herniated disc following initiation of anesthesia. Procedure was abandoned subsequently admitted to regular nursing floor with consultation placed to the hospitalist service 1. Transient hypoxia ? Suspected to be secondary to obesity hypoventilation syndrome as well as obstructive sleep apnea. Patient lumbar stenosis surgery was canceled after she became hypoxic following initiation of anesthesia. As part of her management patient had a 2D echo placed discussed with patient to undergo sleep study as outpatient to be ordered by her primary care physician 2. Sinus tachycardia 3. Herniated disc ? Patient to follow-up with Dr. Duarte with spine surgery as outpatient 4. DVT prophylaxis: SCDs, as per primary team. Time spent in the patient's overall evaluation,decision-making process, review of diagnostic data, adjustment of management, discussion with other providers, nursing nursing and ancillary staff involved in patient's care documentation,36- minute Charges/Coding Visit Charges Inpatient E&M: 96927 Subs Hosp L2
[2022-04-29] MEDS: FLU VACC QS2022-23(6MOS UP)/PF 60 MCG/0.5 ML SYRINGE IM (09:43)
[2022-04-29] MEDS: Lactated Ringers 1,000 ML 100 ML IV (09:52)
[2022-04-29 09:53] VITALS: BP 141/87; PULSE 90; RESP 16; TEMP 36.7; O2SAT 98
[2022-04-29] MEDS: Ibuprofen 400 MG Tablet PO (11:24)
--- NOTE | 2022-04-29 11:45 | CASEMGMT ---
Pt became hypoxic under anesthesia, did not have surgery. Pt is currently on RA.
--- NOTE | 2022-04-29 12:51 | DCINST_ITS ---
Discharge Instructions Activity May shower in (days): 1 May resume sexual activity in: No Restrictions Weight Bearing Status: Full weight bearing Lifting Restrictions: as tolerated Follow Up Care Test Results: Test results from this visit will be discussed in further detail at your follow- up appointment, if applicable. Discharge Plan Admission Admit Date/Time: 04/28/22 11:52 Primary Reason for Your Visit: back surgery Attending Provider: Joshua Duarte Primary Care Provider: Mitesh Wyman Consulting Providers: Courtney Bustamante ; Feliberto Lang Discharge Orders/Prescriptions Prescriptions: No Action NK Referrals / Follow Up: Mitesh Wyman MD [Primary Care Provider] - Disposition Disposition (needs filled in before D/C Order can be placed): Home, Self Care
--- NOTE | 2022-04-29 16:13 | PCM.DC.SUM ---
Providers Date of Admission: 04/28/22 Primary Care Physician: Dr. Mitesh Wyman MD Attending Physician: This Dr. Duarte dictating discharge summary on Asuncion Schroeder. This patient was admitted yesterday and was put under anesthesia. She was scheduled to have a lumbar laminectomy at the L5-S1 level on the right side. However we had some problems with her breathing when she was intubated. Her tidal volume was not normal and anesthesia got very uncomfortable about continuing with the operation. The decision was made to wake her back up. Then kept her on the floor overnight to make sure she did not have any breathing difficulties. He is much better today. She was evaluated by the hospitalist who felt that it was because of at least partially because of her heavy weight. In the meantime my office is finding her an appointment with Dr. Justo Clifton to have a pulmonary evaluation and probably pulmonary function tests. Once she is stable we will consider doing the surgery that we were not able to do yesterday. This the end of discharge summary Asuncion Schroeder. This is Dr. Duarte dictating. Consultations 04/28/22 14:15 Consult: Hospitalist Routine Consulting Provider: Courtney Bustamante Reason for Consult: Medical Management EMERGENT Consult: No MD Notified: Yes Date Notified: 04/28/22 Time Notified: 14:59 Method of Notification: Text Reason For Visit: RT LUMBAR LAMINECTOMY L5-S1 Diagnosis Discharge Diagnosis (1) Sinus tachycardia: Status: Acute Code(s): R00.0 - Tachycardia, unspecified (2) Hypoxia: Status: Acute Code(s): R09.02 - Hypoxemia Medications at Discharge Home Medications NK 03/26/22 Weight / BMI Weight Weight: 264 lb 15.93 oz Body Mass Index (BMI) 41.5 ABG / Lab / Microbiology Data Result Diagrams: 03/26/22 16:39 03/26/22 16:39 Laboratory: Laboratory Results - last 24 hr 04/28/22 16:38: D-Dimer Quant (PE/DVT) 0.28 04/28/22 16:38: TSH 1.29 Microbiology: Microbiology 03/26/22 16:39 Swab (Method) Nasal Screen MRSA/MSSA - Final Radiography Diagnostic Testing: Radiology Impression Echocardiogram 04/28/22 15:10 Interpretation Summary The study was technically difficult. Contrast injection was performed. Left ventricular systolic function is normal. The estimated ejection fraction is 60 %. Trivial mitral valve insufficiency. No evidence for diastolic dysfunction. Ordering Physician: Courtney Bustamante Referring Physician: Joshua Duarte Performed By: Cinthia Chapin RCS D/C Instructions May shower in (days): 1 May resume sexual activity in: No Restrictions Weight Bearing Status: Full weight bearing Meaningful Use Info Meaningful Use Diagnoses (Choose all that apply): None applicable Discharge Plan Admission Admit Date/Time: 04/28/22 11:52 Primary Reason for Your Visit: back surgery Attending Provider: Joshua Duarte Primary Care Provider: Mitesh Wyman Consulting Providers: Courtney Bustamante ; Feliberto Lang Discharge Orders/Prescriptions Prescriptions: No Action NK Referrals / Follow Up: Mitesh Wyman MD [Primary Care Provider] - Disposition Disposition (needs filled in before D/C Order can be placed): Home, Self Care
== END 2022-04-29 15:07 | disposition home or self-care (01) ==
LOC: SDC 14:41 → MS3 14:41
PROVIDERS: Anesthesiology; Student in an Organized Health Care Education/Training Program; Admitting Provider Orthopaedic Surgery; PCP Family Medicine; Referring Provider Orthopaedic Surgery; Visit Provider Orthopaedic Surgery
PROC: (CPT 63030; principal; 2022-04-28 10:20)
DX: R09.02 Hypoxemia (principal); E66.2 Morbid (severe) obesity with alveolar hypoventilation; Z68.41 Body mass index [BMI] 40.0-44.9, adult; R00.0 Tachycardia, unspecified; M51.27 Other intervertebral disc displacement, lumbosacral region; G47.33 Obstructive sleep apnea (adult) (pediatric); F41.9 Anxiety disorder, unspecified; T41.205A Adverse effect of unspecified general anesthetics, initial encounter; Y92.234 Operating room of hospital as the place of occurrence of the external cause; Z53.09 Procedure and treatment not carried out because of other contraindication; Z23 Encounter for immunization
CPT/HCPCS: 63047; 00630; 36415; 71046; 80048; 81025; 82962; 83735; 84443; 85025; 85379; 86703; 86706; 86708; 86803; 87081; 93005; 93306; 94640; 94762; 96360; 96361; 99221; 99252; J7120; Q9957; 90686; A4216; C8929; G0378; G0463; J2310; J2405; J3475

== ENCOUNTER → 2022-05-22 | Outpatient (CLI) | payer OTHER, SELFPAY ==
--- NOTE | 2022-05-23 05:28 | PFTCOMP ---
COMPLETE PULMONARY FUNCTION TEST INTERPRETATION Brief HPI: Patient is a 21-year-old female, currently under the care of Dr. Clifton, who presents to [facility] for complete pulmonary function tests secondary to diagnosis of DALLIN. Respiratory therapist reports good effort and reproducible results. Interpretation: Forced expiration spirometry shows no large airways obstructive ventilatory defect with an FEV1 of 98% predicted. There is no significant bronchodilator response by strict ATS criteria. Spirograms are of good quality and plateau normally. The respiratory flow volume loop shows a normal pattern. Lung volumes by body plethysmography show a normal total lung capacity at 6.3 L, 109% predicted. All other lung volumes are within normal limits. Diffusion capacity by carbon monoxide is decreased at 73% predicted. The airway resistance is normal. No previous pulmonary function tests were available for review. Impression: Isolated reduction diffusion capacity with preserved spirometry and lung volumes
== END | disposition home or self-care (01) ==
LOC: SL 12:23 → PSN 12:24 → SL 20:28
PROVIDERS: PCP Family Medicine; Referring Provider Internal Medicine Critical Care Medicine; Visit Provider Internal Medicine Critical Care Medicine
DX: G47.33 Obstructive sleep apnea (adult) (pediatric) (principal)
CPT/HCPCS: 94060; 94726; 94729; 95810

== ENCOUNTER → 2022-05-31 | Outpatient (CLI) | payer OTHER, SELFPAY ==
[2022-05-31 14:49] LABS: Mucous, Urine 0 SEEN /hpf (<or=2+); Red Blood Cells-Urine 0 SEEN /hpf (0-5)
[2022-05-31 14:57] LABS: Color, Urine Yellow (Yellow); Glucose, Dipstick Normal (Normal); Ketone-Dipstick Negative (Negative); Leukocyte Esterase-Dipstick 100 /ul (Negative); Nitrite-Dipstick Positive (Negative); Occult Blood-Urine 10 /ul (Negative); Protein-Dipstick Negative (Negative); Specific Gravity, Urine 1.015 (1.002-1.030); Urine Bilirubin Dipstick Negative (Negative); Urine Clarity Clear (Clear); Urine Urobilinogen Normal (Normal)
[2022-05-31 15:20] LABS: Bacteria 1+ /hpf (None Seen); Squamous Epithelial Cells - UA 0-5 SEEN /hpf (5-10); White Blood Cells 10-25 SEEN /hpf (0-5)
== END | disposition home or self-care (01) ==
PROVIDERS: Visit Provider Physician Assistant Medical
DX: R30.0 Dysuria (principal)
CPT/HCPCS: 81001; 87086; 87088

== ENCOUNTER → 2022-06-24 | Outpatient (CLI) | payer OTHER, SELFPAY ==
[2022-06-24 14:06] VITALS: PULSE 120; PULSE 122; PULSE 150; PULSE 167; PULSE 170; PULSE 173; PULSE 174; PULSE 179; O2SAT 98
--- NOTE | 2022-06-25 07:36 | PCM.PSN.6M ---
PSN 6 Minute Walk Test 6 Minute Walk Test 6 Minute Walk Test: 6 Minute Walk Test PSN:6-Minute Walk Test Start: 06/24/22 14:06 Freq: Status: Active Protocol: [id number].6MINW Document 06/24/22 14:06 CRISTOPHER (Rec: 06/24/22 14:08 CRISTOPHER [id number]) 6 Minute Walk Test Date Performed 06/24/22 Time Performed 13:45 Height 5 ft 7 in Weight: 270 lb Weight in Pounds 270.[address]: Carmita Yanez [employer] Assistive device used: Walker Pre-test Oxygen Delivery Method Room Air Pulse Ox (%) 98 Pulse Rate (60-100 beats/min) 120 H Dyspnea Tommy Scale (0-10) 0 Exertion Tommy Scale (6-20) 6 1st minute Oxygen Delivery Method Room Air Pulse Ox (%) 98 Pulse Rate (60-100 beats/min) 150 H 2nd minute Oxygen Delivery Method Room Air Pulse Ox (%) 98 Pulse Rate (60-100 beats/min) 167 H 3rd minute Oxygen Delivery Method Room Air Pulse Ox (%) 98 Pulse Rate (60-100 beats/min) 170 H 4th minute Oxygen Delivery Method Room Air Pulse Ox (%) 98 Pulse Rate (60-100 beats/min) 173 H 5th minute Oxygen Delivery Method Room Air Pulse Ox (%) 98 Pulse Rate (60-100 beats/min) 174 H 6th minute Oxygen Delivery Method Room Air Pulse Ox (%) 98 Pulse Rate (60-100 beats/min) 179 H Dyspnea Tommy Scale (0-10) 1 Exertion Tommy Scale (6-20) 14 Post-test Oxygen Delivery Method Room Air Pulse Ox (%) 98 Pulse Rate (60-100 beats/min) 122 H Full Laps Walked 12 Partial Lap, Number of Tiles Walked 29 Total Distance Walked (ft) 737 Interpretation Interpretation: The patient ambulated 737 feet over the course of 6 minutes beginning on room air with the use of a walker. Pretesting oxygen saturation was noted to be 98% on room air. With ambulation, the christiane oxygen saturation was 98%. Although there was evidence of impaired walk distance, there was no significant exertional oxygen desaturation. Recommendations Recommendations: There is no indication for the use of supplemental oxygen at this time.
== END | disposition home or self-care (01) ==
LOC: PSN 13:42
PROVIDERS: PCP Family Medicine; Referring Provider Nurse Practitioner Acute Care; Visit Provider Nurse Practitioner Acute Care
DX: R09.02 Hypoxemia (principal)
CPT/HCPCS: 94618

== ENCOUNTER → 2022-07-08 | Outpatient (CLI) | payer OTHER, SELFPAY ==
[2022-07-08 14:28] LABS: Blood Gas Specimen Type ART; O2 Delivery Device Room Air; SITE L BRACHIAL
[2022-07-08 14:29] LABS: Base Excess -1 mmol/L (-2 to +2); Bicarbonate 22.2 mmol/L (22-26); PO2 201 mmHG (75-100); SO2 100 % (95-99); Total Carbon Dioxide 23 mmol/L; pCO2 30.2 mmHg (35-45); pH 7.48 (7.35-7.45)
== END | disposition home or self-care (01) ==
LOC: PSN 12:54
PROVIDERS: PCP Family Medicine; Referring Provider Nurse Practitioner Acute Care; Visit Provider Nurse Practitioner Acute Care
DX: M79.604 Pain in right leg (principal); R20.2 Paresthesia of skin
CPT/HCPCS: 36600; 82803

== ENCOUNTER 2022-07-15 08:00 | Outpatient (RCR) | payer OTHER, SELFPAY ==
--- NOTE | 2022-07-15 09:05 | BH.SGPN.GN ---
Behaviors/Verbalizations/Mental Status: []Pt alert and oriented, casually dressed and groomed. Eye contact good. Motor activity appropriate. Speech within normal limits. Affect congruent, mood anxious. Thoughts linear, logical, no signs of hallucinations or delusions. Reviewed pt?s symptom tracker, no risk for suicidal ideation, plan, or intent as of 07/15/22 Client Response/Progress/Benefit: []Pt's first day of IOP tx. Pt engaged and attentive, sharing that she feels tired this morning. Pt shared she wants to work on managing her health anxiety while in IOP tx. Pt has some chronic health issues, but pt recognizes that her anxious thought patterns reinforce her physical symptoms. Pt stated her mental health win today is that she received a clean bill of health at her last appointment. Pt will continue IOP tx to prevent decompensation, increase distress tolerance skills, and improve daily functioning. Narrative Note: []
--- NOTE | 2022-07-15 10:12 | BH.SGPN.GN ---
Behaviors/Verbalizations/Mental Status: []Client alert and oriented, casually dressed and groomed. Eye contact good. Motor activity appropriate. Speech within normal limits. Affect congruent, mood anxious and depressed. Thoughts linear, logical, no signs of hallucinations or delusions. Client Response/Progress/Benefit: []Client receptive of session, actively engaged throughout AEB taking notes and listening to discussion. Client first day in tx and therefore still adjusting to the group environment. Appeared to connect with group topic of cognitive distortions and the impact of thought patterns on mental health, coping behaviors, and relationships. Reflected that she connects with distortions of overgeneralization and catastrophizing. Client appeared to benefit from gaining insight on distorted thinking patterns and how this impacts overall mental health. Progress noted in client report of improved insight and ability to combat distortions with alternative positive thoughts. Will continue IOP tx to improve thought challenging, promote mood stability, and increase overall functioning. Narrative Note: []
--- NOTE | 2022-07-16 09:01 | BH.SGPN.GN ---
Behaviors/Verbalizations/Mental Status: [] Eye contact fair. Motor activity appropriate. Speech within normal limits. Affect congruent, mood anxious and dysthymic. Thoughts linear, logical, no signs of hallucinations or delusions. Reviewed client?s symptom tracker, no risk for suicidal ideation, plan, or intent. Client Response/Progress/Benefit: [] Client responded well to session, attentive and willing to process with group.Client shared current stressor as feeling lots of pain today. Client stated she has several different medical conditions that increase her physical pain. Client noted mental positive as going to the store with her partner to purchase a picture frames because they plan to do Portraits. Client stated additional months of when as communicating to group that she needed to sit down during activity due to her physical pain. Client shared she tends to have shame towards her body ailments and usually would not speak up so is happy she was able to verbalize that to the group today. Client appeared to benefit from group support and encouragement. Recommended continued IOP tx to continue to improve daily functioning, decrease anxiety, and prevent decompensation.
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
[2022-07-16 12:30] VITALS: BP 150/92; PULSE 70
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
--- NOTE | 2022-07-16 12:42 | BH.DR.ITP ---
Initial Treatment Plan Patient Information Visit Information: ADMISSION DATE: EXPECTED LOS: 4-6 weeks Problems/Symptoms Problem #1:: Anxiety Symptom:: worry, rumination, panic attacks Symptom:: obsessions over becoming ill or having new symptoms of an illness Problem #2:: Depression Symptom:: Sadness, hopelessness, low energy, guilt, worthlessness, isolation, lack of motivation
--- NOTE | 2022-07-17 09:05 | BH.SGPN.GN ---
Behaviors/Verbalizations/Mental Status: [] Eye contact is good. Motor activity is appropriate. Appearance is disheveled. Speech is Appropriate. Mood is depressed/irritable. Affect is flat. Thoughts are linear and logical. No evidence of psychosis. Reviewed daily check in sheet and pt reports 2/5 for suicidal thoughts and 0/5 for intent. Baseline has been between 1-2 since admission. Client Response/Progress/Benefit: [] Pt particiated at times during the group discussion. Attentive. Daily symptom tracker notes 4/5 for anxiety, 3/5 for agitation, and 2/5 for depression. Emotion for today is frustrated. She could not identify any mental health wins. Reports being stressed and frustrated due to medical issues and their impact on her physical and mental health functioning. Several negative thoughts, however she is attempting to challengeand reframe certain thoughts. She is also utilized occasional affirmations. Continues to be overwhelmed however is trying to utilize skills to minimize ruminations and distress. Benefited from group support, encouragment, and feedback. Will continue in IOP to maintain safety, increase healthy coping, and to stabilize mood. Narrative Note: []
--- NOTE | 2022-07-17 10:10 | BH.SGPN.GN ---
Behaviors/Verbalizations/Mental Status: []Pt alert and oriented, casually dressed and groomed. Eye contact good. Motor activity appropriate. Speech within normal limits. Affect congruent, mood depressed and anxious. Thoughts linear, logical, no signs of hallucinations or delusions. Client Response/Progress/Benefit: []Pt was an active participant during interactive group discussions. Attentive during psychoeducation on the six types of boundaries. Pt along with peers contributed to interactive discussion on defining what a boundary is and group identified challenges to setting boundaries which included; difficulties communicating, fear of hurting someone?s feelings, and fear of being a burden or asking for ?too much?. Group reviewed the 6 types of boundaries. Pt provided personal examples of what a violation of intellectual boundaries might look like, indicating ?when someone doesn?t respect it if you tell them you know something and they re-explain it to you? as an example. Pt benefited from increased awareness and insight on the importance/benefit to setting health boundaries. Will continue IOP tx to prevent decompensation, improve daily functioning, and reduce unhealthy checking/ safety behaviors. ? Narrative Note: []
--- NOTE | 2022-07-17 11:15 | BH.SGPN.GN ---
Behaviors/Verbalizations/Mental Status: []Pt alert and oriented, neatly dressed and groomed. Eye contact good. Motor activity appropriate. Speech within normal limits. Affect congruent, mood anxious. Thoughts linear, logical, no signs of hallucinations or delusions. Client Response/Progress/Benefit: []Pt responded well to session AEB listening attentively to peers and providing input. Pt attentive during psychoeducation on the different boundary styles. Pt reported she struggles with letting people take over my life when she is in relationships. Pt identified being both porous and rigid and pt wants to work being more assertive with her boundaries. Pt stated she realizes not setting boundaries has led pt to not trusting my judgement toward people. Pt was given a handout on strategies for healthy boundary setting. Appeared to benefit from increasing insight to boundary setting and the impacts on mental health. Seemed to benefit from increased awareness of boundary styles and strategies to improve setting boundaries. Will continue IOP tx to increase healthy coping, reduce illness anxiety symptoms, and improve daily functioning. Narrative Note: []
--- NOTE | 2022-07-18 15:37 | BH.MTP ---
Master Treatment Plan Patient Information Program Physician:: Dr. Mae Primary Therapist:: Shwetha Carrera [facility] Psychiatric Diagnoses Psychiatric Diagnoses:: 1. Illness anxiety disorder?care seeking type (F45.21) 2. Major depressive disorder, recurrent, moderate 3. Generalized anxiety disorder Diagnosis Code(s):: F45.21 Estimated LOS Estimated LOS (in weeks):: 6 Problem/Goal #1 Problem/Goal #1 Stated Goal:: Client will reduce overall frequency, intensity, and duration of anxiety and intrusive thoughts so that daily functioning is not impaired Description of Barriers: Client has current medical problem with upcoming surgery and has hx of other medical problems, which makes it challenging for client to not hyperfocus on medical issues. Additional barriers could include: distorted thoughts, checking behavior, reassurance seeking, negative thoughts, and hopelessness. Objectives Objective #1: Stated Objective: Client will identify 2-3 intrusive/ruminating thoughts and learn 2-3 strategies to overcome, replace, or reduce the value of those thoughts. Interventions: Therapist will help client increase awareness of cognitive distortions, false comfort, and myths about intrusive thoughts. Therapist will utilize distractions, mindfulness, and CBT-based strategies to help client learn how to more effectively manage and cope with his intrusive thoughts. Discharge Criteria: Client will have met this objective when can identify at least 2 intrusive thoughts and utilize strategies that successfully manage intrusive thought. Target Date: 08/26/22 Review Date: 08/12/22 Objective #2: Stated Objective: Pt will decrease anxious symptoms AEB pt?s score on the DSM 5 cross-cutting measure improve pt?s daily functioning. Interventions: Through groups and individual therapy, pt will be provided education about anxiety?s impact on body and common physiological reaction to anxiety. Therapist will teach pt appropriate breathing techniques and build healthy coping skills to manage daily anxieties. Discharge Criteria: Pt will have met this goal when pt?s score on the DSM 5 cross cutting measure for anxiety has been decreased and per pt?s report daily functioning has improved. Target Date: 08/26/22 Review Date: 08/12/22 Problem/Goal #2 Problem/Goal #2 Stated Goal:: Client will reduce depression and feelings of hopelessness due to Major Depressive Disorder through Intensive Outpatient Program.? Description of Barriers: Client has current medical problem with upcoming surgery and has hx of other medical problems, which makes it challenging for client to not hyperfocus on medical issues. Additional barriers could include: distorted thoughts, checking behavior, reassurance seeking, negative thoughts, and hopelessness. Objectives Objective #1: Stated Objective: Client will learn and utilize 2-3 healthy coping strategies to manage depressive symptoms. Interventions: Therapist will utilize CBT techniques to assist client with understanding the connection between thoughts, feelings and behaviors. Education will be provided on behavioral activation. Therapist will assist client in learning internal coping strategies to manage depressive symptoms, along with helping client identify triggers. Discharge Criteria: Client will have achieved this goal when can verbalize and has practiced at least 2 healthy coping strategies that successfully manage depressive symptoms. Target Date: 08/26/22 Review Date: 08/12/22 Objective #2: Stated Objective: Pt will decrease depressive symptoms AEB pt?s score on the DSM 5 cross-cutting measure and improve pt?s daily functioning. Interventions: Through groups and individual therapy, pt will be provided with education on cognitive distortions, mistaken beliefs, and identifying and combating negative self-talk. Therapist will assist pt with getting back into the activities she once enjoyed as well as increasing healthy coping strategies. Discharge Criteria: Pt will have met this goal when pt?s score on the DSM 5 cross cutting measure for depression has been decreased and per pt?s report daily functioning has improved. Target Date: 08/26/22 Review Date: 08/12/22
--- NOTE | 2022-07-18 16:20 | BH.MDN_ITS ---
Multi-Disciplinary Note - Note 60-min Individual Time Started:: 13:30 Date: 07/18/22 Purpose of session/treatment goals addressed:: Purpose of session was to assess current symptoms and stress, build rapport, and identify treatment goals for IOP. Eye Contact:: Fair Motor Activity:: Appropriate Appearance:: Casual Speech:: Appropriate Mood:: Anxious, Depressed Affect:: Constricted Thoughts:: Linear, Logical, No evidence of hallucinations/delusions noted Staff Interventions:: psychoeducation on: - calming skills - belly breathing, CBT techniques, mindfulness skills, rapport building, strengths perspective, treatment planning, taught coping skills Client Response:: Client reported she is seeking treatment because ?obsess over health issues which she stated has been impacting her ability to function. Client reported she will spend 3 hours a day Googling various physical symptoms. Client reported she checks her heart rate every 15 minutes with her Apple Watch, checks her blood pressure at least once a day, and is constantly thinking about her health. Client reported her mental symptoms have been impacting her ability to be social because she's often stuck in her head thinking about her physical symptoms and can't be present. Stated mental health is also impacting her ability to complete her school work because she is often emotionally exhausted. Client stated she also struggles with completing chores around the house because she stays stuck in her anxious thoughts about her health and doesn't get started on the task. Client stated while she's an OP she would like to work on ?feeling better which she explained means being more positive, decreased in hopelessness, decrease anxiety, inability to challenge her negative thoughts. Client stated she has been to therapy when she was a teenager for a couple years which she stated found some benefit from. Client stated she went to counseling about a year ago for a couple of months but didn't find it extremely beneficial. Client stated her health anxiety got worse about two years ago and things she is attempted to do to manage that health anxiety has not worked which is what has led her to seek IOP level of care. Client stated she believes her health anxiety is difficult to challenge because she has several health issues. Client stated she has diagnosis of severe bladder disorder which had caused significant pain but is now more managed. Client said she also has three bulging discs and will be having surgery soon to fix this issue. Client reported it is challenging to see any hopeful outlook for her due to being in so much pain daily. Client rece ptive to learning about diaphragm breathing and say that she is willing to practice using belly breathing to help manage anxious physical symptoms. Risks/Concerns:: Denies suicidal ideation, plan or intention to date. Progress Toward Goals/Plan:: Progress noted with client choosing to not wear her apple watch so she doesn't obsess over her heart rate all day. Potential barrier is client reporting she believes she is smarter than most people and this perspective could make it difficult for her to be willing to apply skills/techniques learned in program. This could also make it difficult for client to engage in group sessions. Therapist encouraged client to attempt to use skill explained to her many people are familiar with information given in group, but struggle with application of skills. Client stated willing to give it a try. Client to continue IOP to improve daily functioning, decrease health anxiety, and prevent decompensation. Time Stopped:: 14:30
--- NOTE | 2022-07-18 16:40 | BH.PSA ---
Development & Family of Origin Family History Family History Unknown Diabetes Hypertension
--- NOTE | 2022-07-21 09:00 | BH.SGPN.GN ---
Behaviors/Verbalizations/Mental Status: []Eye contact is good. Motor activity is appropriate. Appearance is casual. Speech is Appropriate. Mood is anxious. Affect is congruent. Thoughts are linear and logical. No evidence of psychosis. Reviewed daily check in sheet and denies any active SI. Client Response/Progress/Benefit: []Pt responded well to session, quiet, but sharing when prompted. Pt reports feeling apprehensive this morning as pt shared she is back on the surgery schedule for her back, but pt is not convinced this surgery will help. Pt endorses a lot of health anxiety, so any time pt has medical issues, pt's anxiety worsens which exacerbates her physical symptoms. Pt's mental health wins today include making cat portraits with her girlfriend over the weekend and being consistent with IOP. Pt appeared to benefit from connecting with peers. Pt will continue IOP tx to prevent decompensation, improve daily functioning, and reduce safety behaviors. Narrative Note: []
--- NOTE | 2022-07-21 10:10 | BH.SGPN.GN ---
Behaviors/Verbalizations/Mental Status: []Pt alert and oriented, casually dressed and groomed. Eye contact good. Motor activity appropriate. Speech within normal limits. Affect congruent, mood anxious and depressed. Thoughts linear, logical, no signs of hallucinations or delusions. Client Response/Progress/Benefit: []Pt receptive of group, participated in discussion and taking notes throughout. Group worked together to identify benefits of healthy relationships which included improves mental health, improved emotion regulation, increased sense of security, and a different perspective. Group identified factors that lead to unhealthy relationships which included trauma, lack of communication, unmanaged emotions, and lack of trust. Pt shared connecting with low self-esteem as personal challenges to healthy relationships. Did well to participate, provide input and ideas, manage frustrations, as well as actively listen to other?s during the activity. Benefited from increased insight and awareness of benefits of healthy relationships and factors that contribute to unhealthy relationships. Pt to continue IOP tx to further improve healthy coping skill repertoire for managing health anxiety, promote mood stability, and prevent decompensation. ? Narrative Note: []
--- NOTE | 2022-07-21 11:10 | BH.SGPN.GN ---
Behaviors/Verbalizations/Mental Status: [] Client alert and oriented, casually dressed and groomed. Eye contact good. Motor activity appropriate. Speech within normal limits. Affect constricted, mood anxious. Thoughts linear, logical, no signs of hallucinations or delusions. Client Response/Progress/Benefit: [] Client responded well to session, engaged and taking notes. Worked with group to identify characteristics of healthy and unhealthy relationships. Attentive during psychoeducation about characteristics of healthy, unhealthy, and abusive relationships. Client stated within relationships she does well is trusting others. Client reported an area she would like to improve in is being more respectful to others. Client stated she doesn't mean to be disrespectful, but recognizes sometimes the way she words things comes off as rude to others.. Appeared to benefit from identifying area wants to work on to build healthier relationships. Client to continue IOP to increase healthy coping, improve daily functioning, and prevent decompensation.
--- NOTE | 2022-07-23 10:10 | BH.SGPN.GN ---
Behaviors/Verbalizations/Mental Status: [] Client alert and oriented, casually dressed and groomed. Eye contact good. Motor activity appropriate. Speech within normal limits. Affect congruent, mood euthymic. Thoughts linear, logical, no signs of hallucinations or delusions. Client Response/Progress/Benefit: [] Client responded well to session AEB taking notes throughout and listening attentively to others. Client was attentive throughout group activity discussing famous individuals and how they overcame failure to be successful. Client helped group identify how fear of failure can impact mental health and relationships. Group together identified how fear of failure leads to over-obsessing, not trying, and lack of confidence. Client participated in experiential activity, working with group members to problem solve. Client was encouraging to group members throughout activity. Appeared to benefit from increased knowledge of fear of failure. Will continue IOP tx to improve self-confidence, reduce distorted thinking patterns, and reduce avoidance. Narrative Note: []
--- NOTE | 2022-07-23 11:10 | BH.SGPN.GN ---
Behaviors/Verbalizations/Mental Status: [] Client alert and oriented, casually dressed and groomed. Eye contact good. Motor activity appropriate. Speech within normal limits. Affect congruent, mood euthymic. Thoughts linear, logical, no signs of hallucinations or delusions. Client Response/Progress/Benefit: [] Client responded well to session, engaged in the experiential activity and attentive throughout group processing. Client reported fear of failure has kept client from singing, friendships, and hobbies. Client completed fear of failure worksheet and was able to identify thoughts and behaviors that reinforce personal fear of failure including expecting the worst outcome, low self-esteem, and shutting down. Client participated in small group discussion regarding strategies to overcome fear of failure. Identified wanting to work on positive affirmations, asking for help, and remembering past successes. Appeared to benefit from increased knowledge of strategies to combat fear of failure and gaining self-awareness. Client will continue IOP tx to increase self worth, increase throughout challenging and to reduce avoidance. Narrative Note: []
--- NOTE | 2022-07-23 14:56 | BH.MDN_ITS ---
Multi-Disciplinary Note - Note 45-min Individual Time Started:: 09:10 Date: 07/23/22 Purpose of session/treatment goals addressed:: Purpose of session was to address goals 1 and 2 from MTP. Eye Contact:: Fair Motor Activity:: Appropriate Appearance:: Casual Speech:: Appropriate Mood:: Anxious, Dysthymic Affect:: Constricted Thoughts:: Linear, Logical, No evidence of hallucinations/delusions noted Staff Interventions:: psychoeducation on: - intrusive thoughts and thought log, CBT techniques, mindfulness skills, rapport building, strengths perspective, goal setting, taught coping skills Client Response:: Client stated needed help identifying areas she wants to work on while in IOP. Client listed current mental health concerns to be: health anxiety, hopelessness, relationship with parents, fear of narcissism, PTSD tics, and intrusive thought patterns. After exploration of her identified problems client stated the ones she wants to work on in IOP to be health anxiety, intrusive thoughts, and hopelessness. Client she feels like these areas impact her functioning the most. Client shared she will have intrusive thoughts that a cat got into the oven while she is cooking which leads her to check the oven several times. Client stated she has intrusive thoughts about dying. Client reported she has been having intrusive thoughts for about two years. Client stated she is receptive to learning about intrusive thoughts. Client reported she has been doing better with not checking her vitals as frequently. Client reported she checks her blood pressure every other day instead of daily. Client stated she hasn't checked her heart rate in one week. Client stated she isn't spending 3 hours everyday researching various physical symptoms. Client reported she is noting improvement with her checking behavior. Stated she still feels anxious, but is putting more effort into not engaging in those types of behaviors. Client listened to education about completing a thought log of her anxious/depressed thoughts. Client initially hesitant because she feels like she has too many anxious thoughts to write down. After further explanation client agreed it wouldn't hurt to try the thought log and she doesn't need to log every thought just the ones that seem to stick the most. Client agreeable to complete thought log for the week and will read provided material about intrusive thoughts. Risks/Concerns:: denies suicidal ideation, plan or intention to date. Progress Toward Goals/Plan:: Progress noted with client decreasing her anxiety checking behaviors for her vitals. Client still expresses hesitancy about skills helping her, but seems receptive to trying the new techniques. Client continues to report daily healthy anxiety, daily intrusive thoughts, and depressed sympt oms. Client to continue IOP to increase healthy coping, decrease anxiety, and prevent decompensation. Time Stopped:: 10:00
--- NOTE | 2022-07-28 09:05 | BH.SGPN.GN ---
Behaviors/Verbalizations/Mental Status: [] Eye contact is good. Motor activity is appropriate. Appearance is disheveled. Speech is Appropriate. Mood is depressed. Affect is flat. Thoughts are linear and logical. No evidence of psychosis. Reviewed daily check in sheet and pt no reports and pt reports 2/5 for suicidal ideations and 0/5 for intent. Client Response/Progress/Benefit: [] Pt participated at times during the group discussion. Attentive. Daily symptom tracker notes 4/5 for anxiety and 4/5 for depression. Emotion for today is overwhelmed and anxious. Mental health win is that I'm here She reports being overwhelmed and anxious regarding upcoming responsibilities this week. She that she isn't sure she will be able to complete all her tasks due to her low energy. I can't believe that I will do everything Group provided support and offered feedback and strategies to manage her anxiety. Also offers suggestions on how to accomplish tasks with decrease energy as well as ways to boost motivation and energy through opposite-action. Benefited from group feedback and support. Will continue in IOP to maintain safety, increase healthy coping, and to improve functioning. Narrative Note: []
--- NOTE | 2022-07-28 10:20 | BH.SGPN.GN ---
Behaviors/Verbalizations/Mental Status: []Pt alert and oriented, casually dressed and groomed. Eye contact fair. Motor activity appropriate. Speech within normal limits. Affect constricted, mood depressed. Thoughts linear, logical, no signs of hallucinations or delusions. Client Response/Progress/Benefit: []Pt was an active participant AEB contributing to discussion, taking notes, and engaging in group activity. Connected with the topic of pitfalls and listened to group discussion on barriers that prevent from choosing a healthier path to mental wellness. Group worked together to identify examples of personal pitfalls and pt identified theirs as distrusting others, believing everything is her fault, and eating unhealthy.? Pt benefited from group as pt learned to better identify potential barriers to improving mental health symptoms. Pt will continue IOP tx to decrease anxiety, increase coping skills and prevent decompensation.
--- NOTE | 2022-07-28 11:20 | BH.SGPN.GN ---
Behaviors/Verbalizations/Mental Status: []Pt alert and oriented, neatly dressed and groomed. Eye contact good. Motor activity appropriate. Speech within normal limits. Affect congruent, mood dysthymic. Thoughts linear, logical, no signs of hallucinations or delusions. Client Response/Progress/Benefit: []Pt receptive of session, engaged throughout AEB actively listening and contributing to discussion, as well as taking notes.? Pt participated in the experiential activity and did well to communicate ideas with peers and manage emotions. Pt and group processed how the emotions and perspective of the group after the break positively impacted pt. Group worked together to identify different coping skills to help manage pitfalls. Pt identified pitfalls they struggle with and shared wanting to work on pitfall of distrusting others and relying only on herself. Pt will do this by allowing herself to feel uncomfortable without acting on these feelings. ?Benefited from identifying personal pitfalls and strategies to overcome these pitfalls. Pt continues to struggle with chronic pain that impacts pt?s motivation and anxiety. Will continue IOP tx to increase distress tolerance skills, reduce safety behaviors, and improve mood stability. Narrative Note: []
--- NOTE | 2022-07-29 09:05 | BH.SGPN.GN ---
Behaviors/Verbalizations/Mental Status: []Pt alert and oriented, casually dressed and groomed. Eye contact fair. Motor activity appropriate. Speech within normal limits. Affect flat, mood anxious. Thoughts linear, logical, no signs of hallucinations or delusions. Reviewed pt?s symptom tracker, no risk for suicidal ideation, plan, or intent as of 07/29/22 Client Response/Progress/Benefit: []Pt was a passive participant in group session. Pt did report being tired today which could be contributing to pt's change in engagement. Pt typically shares in process group, so this is out of character for pt. Pt did nod at times and appeared to be actively listening to peers. Pt appeared to benefit from not isolating and gaining insight from peers. Pt will continue IOP tx to reduce intrusive thoughts, decrease use of safety behaviors, and improve mood stability. Narrative Note: []
--- NOTE | 2022-07-29 10:15 | BH.SGPN.GN ---
Behaviors/Verbalizations/Mental Status: []Client alert and oriented, casually dressed and groomed. Eye contact good. Motor activity appropriate. Speech within normal limits. Affect congruent to topics being discussed, mood depressed and anxious. Thoughts linear, logical, no signs of hallucinations or delusions. Client Response/Progress/Benefit: []Pt engaged in session AEB listening attentively to others and providing insight to group discussion. Pt engaged in activity, able to connect how it can be uncomfortable when things are out of one?s own control. Pt worked with group to identify what things in life can be hard to accept. Group identified things hard to accept as: of a loved one, body image, loss of relationship, mental health diagnosis, other?s behaviors, and past decisions. Pt worked on identifying what personal things are hard to accept for herself, sharing other?s flaws and limitations are things she struggles with accepting. Pt seemed to benefit from increased awareness of importance of acceptance. Pt to continue IOP to improve confidence, increase acceptance and interpersonal communication, and prevent decompensation. Narrative Note: []
--- NOTE | 2022-07-29 11:15 | BH.SGPN.GN ---
Behaviors/Verbalizations/Mental Status: []Pt alert and oriented, casually dressed and groomed. Eye contact fair. Motor activity appropriate. Speech within normal limits. Affect constricted, mood dysthymic. Thoughts linear, logical, no signs of hallucinations or delusions. Client Response/Progress/Benefit: []Pt responded well to session, engaged and providing examples. Pt engaged as group continued discussion on acceptance and how lack of acceptance can impact mental health. Pt and peers identified what makes acceptance challenging and pt completed a self-reflection exercise on what is hard to accept in pt's life. Pt accepted in discussion to process how not accepting can cause more harm. Group identified strategies to increase acceptance. Pt appeared to benefit from gaining insight and strategies to increase acceptance. Pt will continue IOP tx to decrease anxiety, challenge distorted thoughts, and prevent decompensation.
--- NOTE | 2022-07-29 14:33 | BH.MDN ---
Multi-Disciplinary Note - Note 45-min Individual Date: 07/29/22 Purpose of session/treatment goals addressed:: Purpose of session was to address goals 1 and 2 from [facility]TP. Eye Contact:: Fair Motor Activity:: Appropriate Appearance:: Casual Speech:: Appropriate Mood:: Anxious Affect:: Constricted Thoughts:: Linear, Logical, No evidence of hallucinations/delusions noted Staff Interventions:: thought challenging, CBT techniques, rapport building, strengths perspective, goal setting Client Response:: Client reported she's been recently struggling with having trauma flashbacks more often in the last week. Client stated she has been having increased flashbacks to recent medical trauma when her blood pressure dropped and they had to stop surgery. Client shared there was small amount of time following this medical problem in which she was still unable to open her eyes but was conscious. Client reported she has been having the experience in which she feels trapped and which she can hear things but not able to move. Client stated this flashback typically results in some physiological reaction and a tic but once she moves back to the original task she's able to not think about it anymore. Client stated she's having additional flashbacks of other traumatic situations in her life. Client expressed interest in finding out if her soon to be outpatient therapist Stephanie Nixon does EMDR therapy. She did complete homework of reading about intrusive thought patterns and cited it was validating to read about thoughts that she has that are very common for those that struggle with intrusive thoughts. Client reported she connected with majority of the intrusive thought patterns in the book. Client stated she'd like to continue to learn and read about intrusive thoughts and how to manage them. Client also completed the homework of a thought log. Client work cooperatively with therapist to identify how some of her thoughts were distorted and challenged to make them more rational thoughts. Client reported able to see benefit of taking time to identify and challenge just or thought patterns. Clear receptive to complete additional readings on intrusive thoughts for homework. Risks/Concerns:: Client denies suicidal ideation, plan or intention to date. Future oriented. Progress Toward Goals/Plan:: Progress noted with client expressing increased understanding and connection to experiencing intrusive thoughts. Client noted it is helpful to have verbiage to explain what she experiences with her anxiety. Client also showing progress with being more receptive to trying out different strategies and skills. Client continues to express anxiety about upcoming surgery, but is starting to feel more hopeful about her future. Client is reporting increase traumatic flashbacks. Client open to doing trauma treatment with outpatient therapist. Client to continue IOP to continue use of healthy coping, challenge distorted thoughts, and prevent decompensation.
--- NOTE | 2022-08-01 09:00 | BH.SGPN.GN ---
Behaviors/Verbalizations/Mental Status: [] Eye contact is good. Motor activity is appropriate. Appearance is casual. Speech is Appropriate. Mood is depressed. Affect is congruent. Thoughts are linear and logical. No evidence of psychosis. Reviewed daily check in sheet and no reports of suicidal ideations or intent. Client Response/Progress/Benefit: [] Pt participated at times during group discussions. Attentive. Daily symptom tracker notes 3/5 for anxiety and 2/5 for depression. Emotion for today is ?anxious?. Mental health wins include ? I made it here today?. She shared recent struggles with anxiety and motivation and group provided feedback and encouragement which was beneficial. Will continue in IOP to maintain safety, stabilize mood, and improve functioning. Narrative Note: []
--- NOTE | 2022-08-01 10:05 | BH.SGPN.GN ---
Behaviors/Verbalizations/Mental Status: []Pt alert and oriented, casually dressed and groomed. Eye contact good. Motor activity appropriate. Speech within normal limits. Affect congruent, mood depressed. Thoughts linear, logical, no signs of hallucinations or delusions. Client Response/Progress/Benefit: []Pt participated in group discussions. Active participant in experiential activity. Attentive during psychoeducation. Attentive as peers shared types of social supports which included; family, friends, PCP, mental health providers, support groups, pets, ourselves, community classes, etc. Attentive as group identified mental health benefits of social support but pt and peers also shared sometimes it seems like they cannot access support. Contributed as peers worked together to identify obstacles to utilizing support. Pt identified personal barriers as pride and people not always being available. Benefited from increased awareness of mental health benefits of social support and obstacles that prevent one from utilizing support. Will continue IOP tx to reduce safety behaviors, improve daily functioning, and improve distress tolerance. ? Narrative Note: []
--- NOTE | 2022-08-01 11:10 | BH.SGPN.GN ---
Behaviors/Verbalizations/Mental Status: []Client alert and oriented, casually dressed and groomed. Eye contact good. Motor activity appropriate. Speech within normal limits. Affect congruent, mood anxious and depressed. Thoughts linear, logical, no signs of hallucinations or delusions. Client Response/Progress/Benefit: []Client was an active participant throughout AEB contributing to discussion, providing personal examples, and taking notes. Client provided input during discussion on the types of support our supports can provide. Client able to identify current support system and barriers that get in the way of using supports by drawing out their own support net. Client reported after identifying what type of supports they receive; they gained awareness that they could benefit from more tangible supports. Client identified steps to achieve this by identifying tasks they need help with them, prioritizing tasks by immediate importance, and asking for help. Client seemed to benefit from identifying the type of support client needs to work on improving. Client recommended to continue IOP tx to increase healthy coping, reduce anxiety, and increase overall functioning. Narrative Note: []
== END 2022-08-03 23:59 ==
LOC: BHIOP 08:00
PROVIDERS: PCP Family Medicine; Referring Provider Psychiatry & Neurology Psychiatry; Visit Provider Psychiatry & Neurology Psychiatry
DX: F41.9 Anxiety disorder, unspecified (principal); F32.A Depression, unspecified
CPT/HCPCS: S9480; 90834; 90837; 90853

== ENCOUNTER 2022-08-04 08:22 | Outpatient (RCR) | payer OTHER, SELFPAY ==
[2022-08-04 00:50] VITALS: BP 150/92; PULSE 70
--- NOTE | 2022-08-04 09:00 | BH.SGPN.GN ---
Behaviors/Verbalizations/Mental Status: []Eye contact is fair to good. Motor activity is appropriate. Appearance is casual. Speech is Appropriate. Mood is depressed and anxious. Affect is congruent. Thoughts are linear and logical. No evidence of psychosis. Reviewed daily check in sheet and denies any active SI, plan, or intent as of this date. Client Response/Progress/Benefit: []Pt responded well to session, attentive and willing to process with group. Pt reports feeling ?fatigued? this morning. Shared this is related to chronic physical health issues, and went on to indicate her physical health as both her stressor and mental health win. Shared feeling anxious about an upcoming surgery pt is having next week and feeling overwhelmed by all she needs to do to prepare for this. Identified current win as not allowing herself to ruminate on these anxieties and is instead keeping busy with healthy distractions/tasks. Additional win noted as sticking through with the IOP program, as pt shared a hx of struggling with follow-through. Identified that reminding herself of the benefits of doing so has been most helpful in continuing to promote attendance. Benefited from supportive feedback structure of the group. Pt will continue IOP tx to prevent decompensation, improve mood stability, and promote healthy anxiety management skill application. Narrative Note: []
--- NOTE | 2022-08-04 10:00 | BH.SGPN.GN ---
Behaviors/Verbalizations/Mental Status: []Pt alert and oriented, casually dressed and groomed. Eye contact fair. Motor activity appropriate. Speech within normal limits. Affect constricted, mood anxious. Thoughts linear, logical, no signs of hallucinations or delusions. Client Response/Progress/Benefit: []Pt was an active participant in group discussion and experiential activity. Attentive during psychoeducation on possible causes to developing and maintain unhealthy coping skills which can impact mental health. Pt participated in interactive discussion identifying common unhealthy coping skills. client noted lashing out and isolating are unhealthy skills that tend to lead to more problems. Able to make connections between experiential activity and importance of having a solid base of internal and external coping skills. Benefited from increased awareness of internal and external coping skills and identifying unhealthy coping skills. Will continue in IOP to decrease healthy anxiety, challenge perspective, and prevent decompensation.
--- NOTE | 2022-08-04 11:05 | BH.SGPN.GN ---
Behaviors/Verbalizations/Mental Status: []Pt alert and oriented, casually dressed and groomed. Eye contact good. Motor activity appropriate. Speech within normal limits. Affect congruent, mood content. Thoughts linear, logical, no signs of hallucinations or delusions Client Response/Progress/Benefit: []Pt responded well to session, taking notes and contributing. Group discussed the different categories of coping skills which included distraction, emotional release, grounding, self-love, and thought challenging.? Pt participated in creating a coping skills ?menu? from the five categories of coping skills. Pt's coping skill menu included: focusing on basic needs, allowing ?spontaneous laughter,? belly breathing, using an accomplishment log, and replacing her thoughts with realistic messages. Appeared to benefit from increasing repertoire of healthy coping skills. Will continue IOP tx to reduce intrusive thoughts, increase distress tolerance skills, and improve mood stability. Narrative Note: []
--- NOTE | 2022-08-05 09:05 | BH.SGPN.GN ---
Behaviors/Verbalizations/Mental Status: []Pt alert and oriented, casually dressed and groomed. Eye contact good. Motor activity appropriate. Speech within normal limits. Affect congruent, mood anxious. Thoughts linear, logical, no signs of hallucinations or delusions. Reviewed pt?s symptom tracker, no risk for suicidal ideation, plan, or intent as of 08/05/22 Client Response/Progress/Benefit: []Pt responded well to session, attentive and receptive to feedback. Pt reports feeling hesitantly hopeful this morning. Pt reports her stressor and win today is that she is both proud of herself and anxious about how she is managing her thoughts and feelings around her upcoming surgery. Pt shared she typically ruminates and obsessively researches, but she is using opposite action to not engage in this. Pt stated she is happy with her ability to change behaviors, but is she is worried the surgery will not work. Pt's other mental health win today is that she utilized self-care last night. Pt appeared to benefit from reflecting on her use of healthy coping skills. Pt will continue IOP tx to promote mood stability, reduce health-anxiety, and improve daily functioning. Narrative Note: []
--- NOTE | 2022-08-05 10:10 | BH.SGPN.GN ---
Behaviors/Verbalizations/Mental Status: []Pt alert and oriented, casually dressed and groomed. Eye contact fair. Motor activity appropriate. Speech within normal limits. Affect constricted, mood anxious. Thoughts linear, logical, no signs of hallucinations or delusions. Client Response/Progress/Benefit: []Pt receptive to session AEB contributing to discussion, as well listening attentively to others, and taking notes. Worked with group to brainstorm the positive and negative aspects of stress on physical and mental health. Group did well to identify the benefits of stress as well as the impact of distress on performance, relationships, and mental health. Pt identified their personal top stressors as: struggles with mental health/health anxiety, school work/not having enough time, and back problems/upcoming surgery. Pt seemed to benefit from increased awareness of current stressors and impact stress has on mental health. Recommended to continue IOP tx to decrease reassurance seeking behaviors, increase healthy coping, and prevent decompensation.
--- NOTE | 2022-08-05 11:10 | BH.SGPN.GN ---
Behaviors/Verbalizations/Mental Status: [] Eye contact is good. Motor activity is appropriate. Appearance is casual. Speech is Appropriate. Mood is depressed/irritable. Affect is congruent. Thoughts are linear and logical. No evidence of psychosis. Client Response/Progress/Benefit: [] Pt was an active participant in group discussions. Active and engaged during experiential activity. Attentive during psychoeducation on the 4 A's of stress management (Avoid, Alter, Adapt, Accept). Along with peers pt was able to connect the experiential activity to the group topic of stress. Identified times during the activity in which she utilized in the moment stress management skills which included; utilizing others for support/help, identifying struggles and adapting, making necessary changes when needed, the importance of patience, taking a step back, breathing, reframing thoughts, and not ruminating or letting setbacks lead to giving up. Benefited from increased education on stress management strategies and practicing in the moment stress management skills. Will continue in IOP to maintain safety, increase functioning, and to increase healthy coping skills. Narrative Note: []
--- NOTE | 2022-08-06 16:47 | BH.MTP_ITS ---
Treatment Plan Review Demographics Date of Admission:: 07/15/22 Date of Treatment Plan Review:: 08/06/22 Admitting Diagnoses:: 1. Illness anxiety disorder?care seeking type (F45.21) 2. Major depressive disorder, recurrent, moderate 3. Generalized anxiety disorder Current Diagnoses:: 1. Illness anxiety disorder?care seeking type (F45.21) 2. Major depressive disorder, recurrent, moderate 3. Generalized anxiety disorder Patient Status Patient's Response to Treatment:: Pt responding well to treatment AEB consistent attendance, providing input at times during group discussions, and receptive to learning new skills in individual sessions. Pt reported in initial couple sessions hesitancy about how therapy can beneficial for her. Pt starting to be more open to learning about new strategies/skills. Status of Current Problems and Symptoms: Ongoing problems. Pt expressing continued anxiety due to back surgery happening next week. Pt anxious that the back surgery will not help her pain and she will have to deal with chronic pain for the rest of her life. Pt doing better with trying to challenge her thoughts and focus on what is in her control. Pt has stopped wearing her apple watch which has helped her decrease her hyperfocus on her heart rate. Progress Problem #1: Problem Name:: Intrusive Thoughts/Anxiety Status of Goals:: Obj 1 - partially met, ongoing work encouraged. Pt reports no longer wearing her apple watch which has helped significantly dec rease her focus on watching her heart rate. Pt has started to stop checking her blood pressure daily. Pt implementing some of the strategies she has learned about managing intrusive thoughts. Obj 2 - not met. Per DSM 5 client's generalized anxiety scores have gone down by 27%. Her OCD symptoms have remained the same. Team Recommendations:: Team recommends continued work on current goal and objectives. Continued work on decreasing reassurance seeking, googling her medical symptoms, and checking her vitals. Problem #2: Problem Name:: Depression Status of Goals:: obj 1 - partially met. Client able to identify healthy coping skills like opposite action, challenge negative thoughts, and utilizing healthy supports. Client doing better with using some of the skills, but could benefit from continuing to work on objective to increase consistency. obj 2 - met, ongoing work encouraged. Per DSM 5 cross cutting measure at review her scores indicate a 40% decrease in depression. Team Recommendations:: team recommends continued work on goal and objectives to increase consistency of skills and reinforce progress.
--- NOTE | 2022-08-11 11:28 | BH.COMM ---
Communication Note - Communication with Client Communication Note: Pt underwent back surgery and will not be attending IOP all this week. She reports that she expecting to be off for only a week.
--- NOTE | 2022-08-12 07:48 | BH.MDN ---
Multi-Disciplinary Note - Note 45-min Individual Date: 08/05/22 Purpose of session/treatment goals addressed:: Purpose of session was to address goals 1 and 2 from MTP. Eye Contact:: Fair Motor Activity:: Appropriate Appearance:: Casual Speech:: Appropriate Mood:: Anxious Affect:: Constricted Thoughts:: Linear, Logical, No evidence of hallucinations/delusions noted Staff Interventions:: CBT techniques, rapport building, strengths perspective, reviewed DSM-5, taught coping skills Client Response:: Client shared she did not complete homework of reading about intrusive thoughts and strategies to help manage intrusive thoughts because she stated being too busy. Client reported she also did not complete any thought log in the last week. Client stated she had her EKG complete for upcoming surgery and has been cleared which she reported does help decrease her anxiety for surgery. In reviewing clients progress at midpoint she stated progress she has noted is clarity in her thinking, increased self-confidence, improve self esteem, decrease of googling health symptoms, no longer checking her heart rate, and decrease in how frequently she checks her blood pressure. Client stated she is continuing to check the oven to make sure her cats aren't in there and she counts her cats every time she gets home to make sure none of them ran out the door. Client also continues to have intrusive thoughts about the safety of her girlfriend. Client recognized she is not consistently applying her skills which could account for why is she still struggling in certain areas of her life. Client stated she feels like time has been a barrier to applying skills. Client recognized if she doesn't make skill use a priority she will not see the progress that she would like to see. Client stated one thing that she struggles with is quitting a job or stopping doing an activity once she gets bored. Client reported she does not like it when things are monotonous because then she has no motivation or interest in continuing to do that job or task. I'm able to know the impact this can have on her ability to maintain jobs. Client receptive to idea from therapist to create a spontaneity jar in which each week she can pick one thing from the jar that gives her a activity to do that she doesn't know what it is or had planned for. Client reported she believes this could be helpful because she doesn't find things exciting if she already knows what it is or has planned for it. Client said perhaps the spontaneity jar will be helpful because even though she'll know what's in the jar cause she'll write down on the piece of papers she won't know what she's going to be picking for that week. Client agreeable to create this jar in two weeks because she'll have time while she's recovering from her back surgery next week. Client stated feeling hopeful about her back surgery and less anxious. Risks/Concerns:: Client denies suicidal ideation, plan or intention to date.
--- NOTE | 2022-08-27 09:00 | BH.SGPN.GN ---
Behaviors/Verbalizations/Mental Status: []Pt alert and oriented, casually dressed and groomed. Eye contact good. Motor activity appropriate. Speech within normal limits. Affect congruent, mood euthymic. Thoughts linear, logical, no signs of hallucinations or delusions. Reviewed pt?s symptom tracker, no risk for suicidal ideation, plan, or intent as of 08/27/22 Client Response/Progress/Benefit: []Pt responded well to session, attentive and engaged. Pt reports feeling optimistic this morning as pt had her surgery and it went well. Pt was highly anxious about this and pt feels like the surgery going well is good reminder that not everything is going to go wrong. Pt stated she has been trying to think more positively and catch anxious thought patterns which has been helpful. Pt's stressor is communicating with her family about her health as pt does have a close relationship with her parents. Pt appeared to benefit from reflecting on her use of coping skills and positives. Pt will continue IOP tx to promote mood stability, further reduce anxious thoughts, and increase self-care. Narrative Note: []
--- NOTE | 2022-08-27 11:10 | BH.SGPN.GN ---
Behaviors/Verbalizations/Mental Status: []Pt alert and oriented, casually dressed and groomed. Eye contact good. Motor activity appropriate. Speech within normal limits. Affect congruent, mood dysthymic and anxious. Thoughts linear, logical, no signs of hallucinations or delusions. Client Response/Progress/Benefit: []Pt was an active participant during activity and discussion AEB providing some input, connecting with peers, as well as taking notes throughout. Pt did well to engage as group worked on identifying characteristics and benefits of adopting a growth mindset. Worked with fellow participants in reframing the example fixed thoughts into growth mindset thoughts. Reframed personal fixed thought of ?People won?t like me? with growth mindset thought of ?I have plenty of good qualities people might like and if people don?t like me that is not a negative reflection on me.? Benefitted from discussing benefits of growth mindset and brainstorming strategies for prompting growth-mindset. Pt appeared to benefit from working in small groups to challenge own thoughts and help peers. Pt will continue IOP tx to improve self-compassion, reinforce healthy coping skills, and further promote healthy anxiety management. Narrative Note: []
--- NOTE | 2022-08-27 11:58 | PCM.BH.PN ---
Progress Note Progress Note: And history of Present Illness/Interim History: The patient is a 21-year-old single, female who is seen in follow-up at the [facility] behavioral health IOP program where she is being treated for depression and anxiety. The patient was last seen over 1 month ago due to her somewhat sporadic attendance and the fact that she missed 10 days due to recent back surgery. The patient feels she is learning valuable skills when she is here and the patient states that she is get glad to be back at the program. She has been taking Lexapro which was started last time I saw her about 6 weeks ago and she is tolerating the medication well with no side effects except a mild decrease in libido. She feels better and her mood has improved according to the patient. She is less anxious and feels more hopeful. She states that she still worries about having a medical illness but worries less about it than before. She has occasional passive thoughts of but less often than prior to starting the Lexapro. She is having panic attacks less than once a week now and they are more mild when she does get them. She denies any suicidal ideation, plan for suicide, homicidal ideation, hallucinations or delusions. Her back surgery went fine although she states that she is still recovering somewhat. Current Psychiatric Medications: [] Lexapro 5 mg p.o. daily (x6 weeks) Mental Status Examination: [] The patient is a 21-year-old , obese female who appears normal for stated age and is casually dressed and groomed with good hygiene. She is ambulatory with a normal gait and has no psychomotor agitation or retardation. Eye contact is good and speech is regular rate and rhythm and fluent with no pressure. Mood is mildly anxious. Affect is full and normal. Thought process is goal-directed and organized. Thought content: There is no evidence of passive thoughts of , suicidal or homicidal ideation, plan for suicide, hallucinations or delusions. The patient still has some concern and worry about the fact that she could have a medical illness. Reality testing is intact. And judgment is intact. Impulsivity is moderate. Insight is limited but improving. Diagnoses: [] 1. Illness anxiety disorder?care seeking type (F45.21) 2. Major depressive disorder, recurrent, moderate 3. Generalized anxiety disorder 4. Primary support issues Plan: [] The patient will continue the IOP program at [facility] as the structure, support, education and group therapy will hopefully prevent worsening of the patient's symptoms. She felt safe during the interview and if it anytime she does not feel safe she will let us know or go to the emergency room. The risks, options, possible complications and side effects of the medications were again discussed with the patient and she understands and accepts these. She agrees to increase her Lexapro to 10 mg p.o. daily and a prescription is sent in for this. I will see the patient in several weeks for follow-up and she will continue to follow-up with her outpatient providers.
--- NOTE | 2022-08-28 09:03 | BH.SGPN.GN ---
Behaviors/Verbalizations/Mental Status: []Pt alert and oriented, casually dressed and groomed. Eye contact good. Motor activity appropriate. Speech within normal limits. Affect congruent, mood euthymic and anxious. Thoughts linear, logical, no signs of hallucinations or delusions. Reviewed pt?s symptom tracker, no SI, plan, or intent indicated as of this date. Client Response/Progress/Benefit: []Pt responded well to session, attentive and receptive of feedback. 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 Shared feeling a sense of pride and accomplishment for the progress she has made on the project thus far. Additional win noted as getting positive feedback at her post-op appointment for her recovery progress following recent back surgery. Shared patience in the recovery process has been somewhat difficult and self-compassion and positive self-talk have been very important for maintaining gains. Current stressor identified as continuing to navigate the relationship with her mother, sharing that they have very different beliefs and values which often results in conflict/disagreements. Seemed to benefit from support from peers and identifying what pt is doing to address her stressors and continue improving her mental health. Pt will continue IOP tx to continue to promote use of healthy coping skills, challenge negative and anxious thinking, and prevent decompensation. Narrative Note: []
--- NOTE | 2022-08-28 10:10 | BH.SGPN.GN ---
Behaviors/Verbalizations/Mental Status: []Eye contact is good. Motor activity is appropriate. Appearance is casual. Speech is Appropriate. Mood is calm. Affect is full. Thoughts are linear and logical. No evidence of psychosis. Client Response/Progress/Benefit: []Pt was an active participant in group discussions. Attentive during psychoeducation. Engaged and provided feedback along with peers on defining anxiety. Along with peers worked together to identify the benefits of anxiety which included; motivates us, helps us prepare, helps us identify danger, and can keep us safe. Participated during interactive discussion on how anxiety impacts one physically, cognitively, and behaviorally. Completed worksheet on how anxiety impacts her physically, cognitively, and behaviorally. Pt shared physically pt experiences tremors and dizziness, cognitively pt second-guesses herself and catastrophizes, and behaviorally pt over-researches and engages in checking behaviors. Benefited from increased insight into anxiety's benefits and detriments. Will continue in IOP to increase mood stability, further decrease checking behaviors, and improve daily functioning. Narrative Note: []
--- NOTE | 2022-08-28 11:10 | BH.SGPN.GN ---
Behaviors/Verbalizations/Mental Status: []Pt alert and oriented, casually dressed and groomed. Eye contact good. Motor activity appropriate. Speech within normal limits. Affect congruent, mood euthymic. Thoughts linear, logical, no signs of hallucinations or delusions. Client Response/Progress/Benefit: []Pt was an active participant in group discussion AEB providing contributions throughout group and listening attentively to others. Attentive during psychoeducation on mindfulness and ways to utilize mindfulness techniques to improve anxiety management. The group practiced deep breathing and the 5-senses during session. Engaged and attentive during group brainstorm of healthy anxiety reduction skills including thought challenging and behavioral changes. Appeared to benefit from practicing in the moment coping skills and increasing repertoire of anxiety management skills. Pt selected wanting to work on using delay, distract, decide to reduce checking behaviors she does when anxious about her cats. Pt will continue IOP tx to reduce checking behaviors, improve distress tolerance, and improve daily functioning. ? Narrative Note: []
--- NOTE | 2022-09-03 09:00 | BH.SGPN.GN ---
Behaviors/Verbalizations/Mental Status: [] Eye contact good. Motor activity appropriate. Speech within normal limits. Affect congruent, euthymic. Thoughts linear, logical, no signs of hallucinations or delusions. Reviewed client?s symptom tracker, no risk for suicidal ideation, plan, or intent. Client Response/Progress/Benefit: [] Client responded well to session, attentive and willing to process with group. Client reported mental health positive as walking a 1/5 of a mile yesterday. Client stated that is the longest she has been able to walk in a year due to back issues. Client stated she sometimes struggles with discounting her physical health positives because she feels like she should be able to do more. Client noted mental health stressor as spilling water on her laptop and worried she ruined it. Seemed to benefit from support from peers. Client to continue IOP to continue use of healthy coping skills, stabilize moods, and prevent decompensation.
--- NOTE | 2022-09-03 10:10 | BH.SGPN.GN ---
Behaviors/Verbalizations/Mental Status: []Eye contact is good. Motor activity is appropriate. Appearance is casual. Speech is Appropriate. Mood is euthymic. Affect is congruent. Thoughts are linear and logical. No evidence of psychosis. Client Response/Progress/Benefit: []Pt was attentive throughout group discussion and experiential activity, though remaining mostly passive throughout. Actively listening and taking notes during psychoeducation on resilience. Participated in interactive discussion with peers on the definition of resilience and where it comes from. Pt shared that resilience includes ?the ability to deal with hardship?. Group identified that resiliency can be impacted by; past experiences, learned behaviors, and current mental health state. Pt noted learned behaviors and means of coping can impede resilience. Group also worked together to identify the benefits of being resilient and how it is related to mental health. Able to relate experiential activity of group juggle to topics of resilience. Worked well with peers in small group in which they identified factors that contribute to resilience. Benefited from increased awareness of resilience and the factors that contribute to building resilience. Will continue in IOP to prevent decompensation and further promote mood stability, as well as continue to promote application of healthy coping skills. Narrative Note: []
== END 2022-09-03 23:59 ==
LOC: BHIOP 08:22
PROVIDERS: PCP Family Medicine; Referring Provider Psychiatry & Neurology Psychiatry; Visit Provider Psychiatry & Neurology Psychiatry
DX: F45.21 Hypochondriasis (principal); F41.1 Generalized anxiety disorder; F33.1 Major depressive disorder, recurrent, moderate
CPT/HCPCS: S9480; 90834; 90837; 90853

== ENCOUNTER 2022-08-11 10:10 | Observation (INO) | payer OTHER, SELFPAY ==
--- NOTE | 2022-07-30 07:59 | EKG12_ITS ---
Test Reason : PRE OP Blood Pressure : / mmHG Vent. Rate : 066 BPM Atrial Rate : 066 BPM P-R Int : 138 ms QRS Dur : 078 ms QT Int : 380 ms P-R-T Axes : 043 076 040 degrees QTc Int : 398 ms Normal sinus rhythm with sinus arrhythmia Normal ECG Confirmed by REED GARCIA, GUSTABO ([id number]), subeditor LEO MATHEW ([id number]) on 07/31/2022 9:24:49 AM Referred By: Joshua Duarte Confirmed By:GUSTABO MCBRIDE MD
[2022-07-30 08:51] LABS: Anion Gap 5 (5-15); BUN 5 mg/dL (7-18); BUN/Creat Ratio 7.2 RATIO (10-20); Calcium,Total 8.5 mg/dL (8.5-10.1); Chloride 109 mmol/L (98-107); Creatinine, Serum 0.69 mg/dL (0.55-1.02); EST Glomerular Filtration Rate 112 mL/min (>60); Est Glom Filt Rate - Afr Amer 136 mL/min (>60); Glucose 119 mg/dL (74-106); Potassium 3.8 mmol/L (3.5-5.1); Sodium Level 137 mmol/L (136-145)
[2022-07-30 09:32] LABS: Magnesium 1.9 mg/dL (1.6-2.6)
[2022-07-30 09:36] LABS: HIV - WCH Non-Reactive (Nonreactive); Hepatitis B Surface Antibody Non-Reactive; Hepatitis C Antibody Non-Reactive (Nonreactive)
[2022-07-30 10:32] LABS: Absolute Neutrophil Count 4.7 X10^3/uL (2.0-7.7); Basophil# 0.07 X10^3/uL; Basophil% 0.8 % (0-1); Eosinophil# 0.36 X10^3/uL; Eosinophils% 3.9 % (0-5); Hematocrit 38.9 % (37-47); Hemoglobin 12.4 g/dL (12.0-15.0); Lymphocyte % 36.1 % (19-41); Mean Corp Hgb Conc 31.9 g/dL (32-36); Mean Corpuscular Volume 84.7 fL (81-99); Mean Platelet Vol. 10.9 fl (6.2-12.0); Monocyte# 0.63 X10^3/uL; Monocyte% 6.9 % (0-10); NRBC Flagged by Analyzer 0 % (0-5); Neutrophil # 4.73 X10^3/uL (2.7-7.7); Neutrophil % 51.9 % (47-70); Platelet Count 363 K/mm3 (150-450); RBC Distribution Width CV 12.7 % (11.6-14.6); RBC Distribution Width SD 38.6 fl (35.1-43.9); Red Blood Count 4.59 M/mm3 (4.2-5.4); White Blood Count 9.1 K/mm3 (4.4-11.0)
[2022-07-31 06:09] LABS: Hepatitis A AB, Total Negative (Negative)
--- NOTE | 2022-08-08 12:40 | HP.PCM_ITS ---
History and Physical MR#: [id number] Acct: [id number] Name:JUAN JIM Rep #: [id number] : 2000 ? ? Provider: Dr. Joshua Duarte, DO Age/Sex:? 21/F ? ? Location: [facility] Status: Signed Intake Intake Visit Reasons:?Lumbar pain Allergies No Known Allergies Allergy (Verified 12/06/21 09:35) Medications lactobacillus combination no.4 3 billion cell capsule (Probiotic) 3,000 mmu cells PO DAILY 09/16/21 meloxicam 15 mg tablet 15 mg PO DAILY #30 tabs 09/17/21 prednisone 10 mg tablet 10 mg PO DAILY #42 tabs 10/17/21 [R tizanidine 2 mg capsule 2 mg PO Q8H PRN muscle spasticity #30 caps 10/17/21 PFSH Depression IC (interstitial cystitis) Family History? Diabetes Hypertension Social History? Smoking Status:? Never smoker alcohol intake:? never substance use type:? does not use caffeine:? Yes what type of physical activity do you participate in:? walking frequency:? 5-6 times per week seatbelt use:? always do you feel safe at home:? Yes additional social history:? oren WELCH is a 21 year old F here today for ongoing low back pain. Patient has a history of lumbar strain and right hip impingement syndrome along with a right hip labral repair?in 2019. She complains of low back and right buttock pain that radiates down her posterior thigh into her knee. She states that she also has right lateral thigh numbness and numbness over the lateral side of her right foot. Patient has been treated by SONU De La Rosa in the office who recently ordered an MRI of her lumbar spine. The MRI reveals at L3-L4, she does have some abnormality of the disc but it seems to be much more of a problem at L5-S1. Patient has participated in physical therapy without any relief. Patient was set up with pain management for an injection into the L5-S1 disc space. Patient states that she still is having pain after the injections but it is mostly in her leg. States she doesn't know if it is back related. States that she was valentine ving some tendonitis issues. States that she doesn't take anything for the pain. States that she uses heat for her back and ice for her knee which is helpful. Both is a delight for young lady 21 years old who presents in the company of her friend.? She states that she started having the pain in the right buttocks right thigh right leg and outside of the right foot about 4 months ago.? She has had low back issues for many many years.? Overall her leg pain is significantly worse than any back pain that she has.? She states that her low back and of itself does not bother her very much.? She denies any bowel or bladder dysfunction.? She denies history of unexplained weight loss night fever sweats or chills. On examination she has positive straight leg raising on the right side.? She has pain down the leg with extension may be even more than flexion but pain with both.? She has good motor strength in all the major muscle groups of both lower extremities.? Her right Achilles reflex is nearly absent her while her left 1 is 2+.? She has no muscle atrophy.? She has no long tract signs.? Clonus is absent Babinski's are downgoing. Plain x-rays of the lumbar spine taken a few weeks ago demonstrate decreased disc spaces at L4-5 and L5-S1 otherwise unremarkable.? I reviewed the MRI scan that was done recently.? She has 3 bad disks at L3 445 and L5-S1.? There is a central protrusion at 3 4 but a significant herniation at L5-S1 more to the right side consistent with her obvious S1 radiculopathy.? I told her that surgical intervention is reasonable.? If she decides on that all I would do was a simple laminectomy on the right at L5-S1 with partial discectomy to remove the pressure off the S1 nerve root.? She is not a candidate for an artificial disc or a fusion because she has 2 abnormal levels above it.? In addition her main pain is not back its buttocks thigh and leg.? So that the surgery that we would do if we should decide to do that.? She also understands that she would have a 20 to 25% chance that it would recur again at some point especially in a young person.? She will go home and think about it.? We did give her a walker with a seat on it for use as she cannot stand for long or walk for a long period.? I will see her on a as needed basis. Coding Level of Care Code Off vis,new,level 3 Diagnoses Low back pain? M54.50 Lumbosacral disc herniation? M51.27
[2022-08-11] VITALS (12 sets, daily range): BP systolic 114–149; BP diastolic 60–99; PULSE 100–118; RESP 16–20; TEMP 36.6–37.1; O2SAT 93–100; BMI 43.1; BMI 45.2
[2022-08-11] MEDS: Lactated Ringers 1,000 ML 15 ML IV ×2 (06:15→08:31)
[2022-08-11] MEDS: Magnesium 2 GM for ERAS IV (06:15)
[2022-08-11 06:26] LABS: Internal QC Validated? YES +Cl - CLEAR BKGD; Pregnancy, Urine Negative Negative
[2022-08-11] MEDS: Acetaminophen 500 MG Tablet 1000 MG PO ×3 (06:33→22:37)
[2022-08-11] MEDS: Ipratropium/Albuterol Sulfate 3 ML AMPUL.NEB INHALATION (06:55)
--- NOTE | 2022-08-11 07:30 | DISC_PTH ---
PATIENT: JUAN WELCH LOC: [facility] U#:[id number] AGE/SX: 21/F ROOM: [facility] [place]/[address]: Dr. Joshua Duarte DO : 2000 BED: 1 DIS: 08/13/2022 SPEC #: [id number] RECD: 08/11/22 10:46 STATUS: SOULEYMANE REQ #: [id number] LOU: 08/11/22 07:[address]: Joshua Duarte DEPT: SURGICAL PATHOLOGY RECD BY: Anastasia Aggarwal ENTERED: 08/11/22 13:28 SP TYPE: DISC OTHR DR: MD Dr. Brice Lua MD Tissues: Intervertebral disc, NOS Procedures: Surgery Specimen Level III HEADER OPERATION: ERAS, lumbar laminectomy L5-S1, neuro monitoring PRE-OP DIAGNOSIS: Low back pain, lumbosacral disc herniation TISSUE SUBMITTED: Disc MICROSCOPIC DIAGNOSIS Intervertebral disc, L5-S1, discectomy: Fragments of intervertebral disc with degenerative change. AM:rosa 08/12/2022 MICROSCOPIC DESCRIPTION Slides are reviewed. GROSS DESCRIPTION Received in fixative is one container labeled with the patient's name and designated disc. The specimen consists of multiple irregular fragments of reardon, indurated tissue that in aggregate measure 4.0 x 4.0 x 1.0 cm. Packing And Shipping Clerk tissue is submitted in one cassette. / SJ:rosa 08/11/2022 TC:5 CPT:
[2022-08-11 08:00] LABS: Bedside Glucose 137 mg/dL (74-106)
--- NOTE | 2022-08-11 08:45 | RAD_ITS ---
STUDY: X-RAY - LUMBAR SPINE REASON FOR EXAM: Female, 21 years old. LAMINECTOMY L5-S1, RT, NEUROMONITORING TECHNIQUE: 1 view(s) of the lumbar spine were obtained. COMPARISON: None FINDINGS: The localization instrument is seen posterior to the L5-S1 level. RAD/Spine 1 View Any Level IMPRESSION: The localization instrument is seen posterior to the L5-S1 level. Electronically Signed: Higinio Vasques MD at 10:34 EDT ,
[2022-08-11] MEDS: THROMBIN (RECOMBINANT) 20,000 UNIT VIAL 20000 UNIT TOPICAL (09:08)
--- NOTE | 2022-08-11 10:06 | OP.PCM_ITS ---
Report of Operation Description of Surgical Findings:: Preoperative diagnosis: Herniated disc L5-S1 with severe right S1 radiculopathy intractable pain and neurological deficit Postoperative diagnosis: The same Procedure: Lumbar laminectomy discectomy L5-S1 on the right CPT code 84725 Surgeon: Dr. Duarte Environmental Services Worker: Shabnam ASCENCIO Anesthesia: General endotracheal administered by [facility] Estimated blood loss: Less than 30 cc Drains: None Complications: None Procedure: Patient was taken to the OR where she was placed under general endotracheal anesthesia while on the gurney. A Coreas catheter was inserted. Neuro monitoring placed her leads on the patient. The patient was then put onto the prone position on the Al frame. After proper positioning with care to protect her bony prominences her breasts her cervical spine and facial features and her brachial plexus and ulnar nerves of both elbows the back was prepped and draped in standard fashion. I then made a longitudinal incision centered over L5-S1. Subcutaneous tissues were incised length of the skin incision. I then opened the lumbar fascia to the right of the spinous processes and elevated the paravertebral muscles off the lamina of L5 and the top of the lamina of S1. An intraoperative x-ray was taken with a marker in place that confirmed that we were indeed at L5-S1. This was also confirmed by the radiologist. The retractor was then put in place. I then removed all the soft tissue off of the ligamentum flavum. The lamina of L5 on the right side was then thinned with double-action rongeurs. I then released the ligamentum flavum off the underside of the lamina using sharp angled curettes. Laminectomy was then carried out with 45 degree Kerrison rongeurs I then cut the medial portion of the ligamentum flavum by putting a hockey stick underneath it and cutting on top of that then I then released it from the top of the lamina of S1 with sharp curettes. 45 degree Kerrison rongeurs were then used to remove the ligamentum flavum all the way up to the lateral recess. I did remove a little bit of the S1 lamina on the right side. Also performed a small foraminotomies on the right side. I was able to retract the obviously angry S1 nerve root medialward along with the dura we held it with nerve root retractors. I then cut into the protruded annulus with a 15 blade removed that section then began removing the nucleus from the area. Note that because she is a young patient she had resistant annulus which is typical of young people so I had to work to get the extruded fragments out. This was taken in several pieces. This was done with pituitary rongeurs of course also removed some of the nucleus from within the disc space with a pituitary rongeurs. I used both straight and up-biting rongeurs to accomplish all this. Bleeders were controlled with bipolar cautery and thrombin-soaked G elfoam. Note that quite frequently in the course of the case we thoroughly irrigated with copious amounts of sterile saline to prevent infection. We had excellent hemostasis at the end of the case. Amniotic membrane was placed over the nerve root and the dura to prevent adhesions in the future. Gelfoam was placed over the top of that. I then closed the lumbar fascia using [id number] suture with #1 Vicryl. The fatty tissue because the patient was large had a lot of adipose tissue was closed in several layers with 0 Vicryl and 2-0 Vicryl. The skin was approximated using skin clips. Sterile dressings were then applied. She was then recovered in the OR she was moved to her hospital bed and taken to recovery in satisfactory condition. The end of operative summary on Asuncion Schroeder. This is Dr. Duarte dictating.
[2022-08-11] MEDS: Lactated Ringers 1,000 ML 100 ML IV (11:22)
[2022-08-11] MEDS: Ensure Surgery 237 ML LIQUID PO ×2 (14:43→16:33)
[2022-08-11] MEDS: Cefazolin 1 GM/50 ML BAG IV (16:29)
--- NOTE | 2022-08-11 17:01 | PCM.PN.HOSP ---
Subjective Subjective 21-year-old female with right-sided radiculopathy secondary to herniated disc from competitive dance. She was supposed to have this repaired in April but she had episodes with hypoxia that were not found to be anything as an outpatient. She presents for surgery today and she underwent a lumbar laminectomy and discectomy on L5-S1 on the right. We are consulted for medical management, she takes Lexapro. Objective Data Objective Data Vital Signs: Vital Signs Temp Pulse Resp BP Pulse Ox O2 Del Method O2 Flow Rate 98.4 F 106 H 16 114/60 99 Room Air 4 08/11/22 14:37 08/11/22 14:37 08/11/22 14:37 08/11/22 14:37 08/11/22 15:07 08/11/22 15:07 08/11/22 11:15 Oxygen Flow Rate (L/min) 4 Oxygen Delivery Method Room Air Weight: 288 lb 12.889 oz Body Mass Index (BMI) 45.2 Intake & Output: Intake and Output for Last 24 Hours 08/10/22 08/11/22 08/12/22 03:59 03:59 03:59 Intake Total 2219 / 2219 Output Total 215 / 215 Balance 2003 Lab / Micro Data Result Diagrams: 07/30/22 08:11 07/30/22 08:11 Labs: Laboratory Results - last 24 hr 08/11/22 05:59: Urine Test Negative 08/11/22 06:20: POC Glucose 137 H Micro: Microbiology 07/30/22 08:11 Swab (Method) Nasal Screen MRSA/MSSA - Final Radiography Diagnostic Testing: Radiology Impression Spine X-Ray 08/11/22 08:45 IMPRESSION: The localization instrument is seen posterior to the L5-S1 level. Electronically Signed: Higinio Vasques MD at 10:34 EDT , Physical Exam Narrative General: Alert, Oriented x3, Cooperative, No apparent distress HEENT: Atraumatic, PERRLA, EOMI, Normocephalic Oral: Moist Mucosa Neck: Supple, No JVD Lungs: Clear to auscultation, Normal air movement, No rhonchi, No wheeze, No rales Cardiovascular: Regular rate, Regular Rhythm, Normal S1, Normal S2, No murmurs Abdomen: Soft, Non Tender, Non-Distended, No Hepato-splenomegaly Extremities: No edema, Capillary Refill Less than 3 Seconds Skin: No rashes, No breakdown, dressing CDI Musculoskeletal: No Tenderness to Palpation of Joints or Extremities Neurological: Cranial nerves II-XII grossly intact, Motor Exam 5/5 strength throughout, Sensory exam intact to light touch and pain Psych/Mental Status: Normal Affect, Appropriate Assessment & Plan Assessment/Plan (1) Herniated nucleus pulposus, L5-S1, right: PLAN: Plan 1. Herniated L5-S1 disc status post laminectomy and discectomy ? Pain per primary ? Discharge planning per primary ? Not requiring any oxygen, she is satting well, discussed lifestyle modifications including weight loss given her back problems. She will follow-up with endocrinology as an outpatient as she states that they believe she has a hormonal problem given the rapidity of weight gain ? We will obtain blood work in the morning with a BMP and a CBC 2. Anxiety/depression ? Stable ? Continue with Lexapro DVT: SCDs Thank you for allowing us to participate in the care of your patient, please call with questions. Charges/Coding Visit Charges Inpatient E&M: 18876 Subs Hosp L2
[2022-08-11] MEDS: oxyCODONE 5 MG Tablet PO ×2 (17:37→22:37)
[2022-08-12] MEDS: Cefazolin 1 GM/50 ML BAG IV (00:23)
[2022-08-12] MEDS: 0.9% Saline Lock 10 ML Syringe IV (00:24)
[2022-08-12] MEDS: diazePAM 5 MG Tablet PO ×3 (01:19→18:00)
[2022-08-12 05:38] VITALS: BP 126/82; PULSE 101; RESP 18; TEMP 36.7; O2SAT 98
[2022-08-12] MEDS: Acetaminophen 500 MG Tablet 1000 MG PO ×3 (05:45→20:44)
[2022-08-12 06:41] LABS: Absolute Lymphocyte Count 1.81 X10^3/uL (0.83-4.51); Absolute Neutrophil Count 15.5 X10^3/uL (2.0-7.7); Basophil# 0.02 X10^3/uL; Basophil% 0.1 % (0-1); Hematocrit 36.8 % (37-47); Hemoglobin 11.8 g/dL (12.0-15.0); Lymphocyte # 1.81 X10^3/ul (0.83-4.51); Lymphocyte % 9.8 % (19-41); Mean Corp Hgb Conc 32.1 g/dL (32-36); Mean Corpuscular Hgb 26.8 pg (27.0-32.0); Mean Corpuscular Volume 83.4 fL (81-99); Mean Platelet Vol. 10.8 fl (6.2-12.0); Monocyte# 0.96 X10^3/uL; Monocyte% 5.2 % (0-10); NRBC Flagged by Analyzer 0 % (0-5); Neutrophil # 15.53 X10^3/uL (2.7-7.7); Neutrophil % 84.5 % (47-70); Platelet Count 308 K/mm3 (150-450); RBC Distribution Width CV 12.7 % (11.6-14.6); RBC Distribution Width SD 38.6 fl (35.1-43.9); Red Blood Count 4.41 M/mm3 (4.2-5.4); White Blood Count 18.4 K/mm3 (4.4-11.0)
[2022-08-12 07:03] LABS: Anion Gap 9 (5-15); BUN 8 mg/dL (7-18); BUN/Creat Ratio 13.2 RATIO (10-20); Calcium,Total 8.8 mg/dL (8.5-10.1); Chloride 106 mmol/L (98-107); Creatinine, Serum 0.61 mg/dL (0.55-1.02); EST Glomerular Filtration Rate 130 mL/min (>60); Est Glom Filt Rate - Afr Amer 158 mL/min (>60); Estimated Creatinine Clearance 140.68 ml/min; Glucose 124 mg/dL (74-106); Potassium 4.1 mmol/L (3.5-5.1); Sodium Level 138 mmol/L (136-145)
[2022-08-12] MEDS: Escitalopram Oxalate 10 MG Tablet 5 MG PO (09:47)
--- NOTE | 2022-08-12 10:05 | CASEMGMT ---
PAULINO GARCIA Assessment: Face to Face with pt for initial transition planning/care coordination assessment. RN JOSE introduced self and role at [facility], pt voices understanding and consents to assessment. Pt is A/O x4 and answers all questions appropriately at this time. Pt sitting up in bed with sig other at bedside. Care providers, pharmacy, and demographics verified/updated. Admitting Dx: lumbar laminectomy L5-S1 R PCP:Garo Specialists:[facility]; Disha aparicio in the end of October; Frankie PAEDIATRIC SURGEON/Uro; Tommy, PAEDIATRIC SURGEON Preferred Pharmacy: [facility] Retail Insurance: [employer] [facility] Prescription Benefit: yes LNOK: Ailyn Schroeder, mother; Wendi Landrum, sig other Living Arrangements: Pt lives with sig other, mother and father in a two story home with 12 steps to enter with a rail on both sides. Pt reports she is I in ADLs and denies concerns at home. Transportation: Pt sig other can transport pt as needed. DME/HHC/SNF: Pt has a rollator at home. She is requesting a walker. Pt denies any HH hx or SNF stays. Pt states no concerns with going home at time of dc. She states her family and sig other will assist her post surgery. Discussed local in network DME companies, pt chose [employer]. Pt states no further concerns/needs. CM to follow. Advised pt to ask CM if any further question/concerns/needs arise, voices understanding. Pt Goal: Home Plan: Home with FWW
[2022-08-12 10:16] VITALS: BP 131/75; PULSE 98; RESP 18; TEMP 36.6; O2SAT 99
--- NOTE | 2022-08-12 10:58 | PCM.PN.ORT ---
Objective Data Objective Data Postop day #1. Patient is seen on rounds today. She reports that her right leg pain is completely resolved. She does not even have any tingling or numbness. She is very pleased with that. Her low back pain is tolerable. She is ambulating with a walker as she is still a little slow to get around. When she goes home she is can have to go up about 12 steps to get to her apartment. That might take a little doing. May be able to go to her parents home for a few days. I believe that is a good idea. Her dressing is dry. Neurologically she is intact in both lower extremities. We will probably keep her 1 more day and let her go home tomorrow. This is Dr. Duarte dictating. Vital Signs: Vital Signs Temp Pulse Resp BP Pulse Ox O2 Del Method O2 Flow Rate 98 F 98 18 131/75 H 99 Room Air 4 08/12/22 10:16 08/12/22 10:16 08/12/22 10:16 08/12/22 10:16 08/12/22 10:16 08/12/22 10:16 08/11/22 11:15 Oxygen Flow Rate (L/min) 4 Oxygen Delivery Method Room Air Weight: 288 lb 12.889 oz Body Mass Index (BMI) 45.2 Intake & Output: Intake and Output for Last 24 Hours 08/10/22 08/11/22 08/12/22 23:59 23:59 23:59 Intake Total 5769 / 5769 350 / 350 Output Total 6140 / 6140 375 / 375 Balance -371 / -371 -25 / -25 Lab / Micro Data Result Diagrams: 08/12/22 05:35 08/12/22 05:35 Labs: Laboratory Results - last 24 hr 08/12/22 05:35: WBC 18.4 H, RBC 4.41, Hgb 11.8 L, Hct 36.8 L, MCV 83.4, MCH 26.8 L, MCHC 32.1, RDW Std Deviation 38.6, RDW Coeff of Lisa 12.7, Plt Count 308, MPV 10.8, Immature Gran % (Auto) 0.400, Neut % (Auto) 84.5 H, Lymph % (Auto) 9.8 L, [place] % (Auto) 5.2, Eos % (Auto) 0.0, Baso % (Auto) 0.1, Absolute Neuts (auto) 15.5 H, Absolute Lymphs (auto) 1.81, Nucleated RBC % 0 08/12/22 05:35: Sodium 138, Potassium 4.1, Chloride 106, Carbon Dioxide 23.0, Anion Gap 9, BUN 8, Creatinine 0.61, Estim Creat Clear Calc 140.68, Est GFR (MDRD) Af Amer 158, Est GFR (MDRD) Non-Af 130, BUN/Creatinine Ratio 13.2, Glucose 124 H, Calcium 8.8 Micro: Microbiology 07/30/22 08:11 Swab (Method) Nasal Screen MRSA/MSSA - Final
[2022-08-12 11:35] VITALS: O2SAT 99
--- NOTE | 2022-08-12 12:08 | CHAPLAIN ---
Type of Pastoral Visit _x__ Initial Visit ___ Follow-up Visit ___ On-call Visit ___ General Patient Visit ___ Spiritual Assessment ___ Family Conference ___ Bereavement ___ Rapid Response ___ Code Blue ___ Other (describe below) Pastoral Care Referral From _x__ Patient ___ Family ___ Nurse ___ Physician ___ Rock Wool Insulator ___ Paste Mixer ___ Other (describe below) Sacrament/Intervention _x__ Active listening ___ Anointing ___ Orthodox ___ Bereavement ___ Communion ___ Jolene exploration ___ ___ Life review ___ Prayer ___ Reconciliation ___ Sacrament of Sick _x__ Supportive presence ___ Wedding ___ Other (describe below) Pastoral Comments patient states she is doing okay and has support by visitor in room; pt speaks of her college experience and decisions to be made; no other interventions sought
--- NOTE | 2022-08-12 13:22 | CASEMGMT ---
Discharge Planning Order/discharge date/room number for FWW delivery sent to [facility] [place], [place] via [employer].
--- NOTE | 2022-08-12 14:08 | CASEMGMT ---
Discharge Planning Notified by [facility] [place] that patient received a new rollator within the last year, making her ineligible for a new FWW. Order cancelled and RN CM to send script home with patient. Ibeth Schmitt
[2022-08-12 14:50] VITALS: BP 128/69; PULSE 105; RESP 18; TEMP 36.6; O2SAT 98
[2022-08-12 20:47] VITALS: BP 107/58; PULSE 100; RESP 16; TEMP 36.6; O2SAT 99
[2022-08-13] MEDS: Acetaminophen 500 MG Tablet 1000 MG PO ×2 (05:36→13:39)
[2022-08-13] MEDS: diazePAM 5 MG Tablet PO ×2 (05:39→13:38)
[2022-08-13 06:11] VITALS: BP 113/65; PULSE 82; RESP 16; TEMP 36.7; O2SAT 98
[2022-08-13 07:01] VITALS: O2SAT 98
[2022-08-13 08:56] VITALS: BP 117/68; PULSE 79; RESP 18; TEMP 36.6; O2SAT 99
[2022-08-13] MEDS: Escitalopram Oxalate 10 MG Tablet 5 MG PO (09:02)
--- NOTE | 2022-08-13 13:13 | DCINST_ITS ---
Discharge Instructions Activity May shower in (days): 4 May resume sexual activity in: 4-6 weeks Weight Bearing Status: Full weight bearing Lifting Restrictions: 15 Dressing / Incision Remove Dressing in: 3 days Follow Up Care Test Results: Test results from this visit will be discussed in further detail at your follow- up appointment, if applicable. Discharge Plan Admission Admit Date/Time: 08/11/22 10:10 Primary Reason for Your Visit: back surgery Attending Provider: Joshua Duarte Primary Care Provider: Mitesh Wyman Consulting Providers: Brice Bailey Kathryn Discharge Orders/Prescriptions Prescriptions: No Action escitalopram oxalate [Lexapro] 5 mg tablet 5 mg PO DAILY Qty: 30 0RF aspirin 325 mg Tablet 650 mg PO TID PRN PRN (Reason: Pain) ferrous sulfate [iron] 325 mg (65 mg iron) Tablet 350 mg PO BID diazepam [Valium] 5 mg tablet 5 mg PO TID PRN (Reason: muscle spasm) Qty: 20 0RF oxycodone-acetaminophen 5-325 mg tablet 1 tab PO Q6H PRN (Reason: pain) 7 Days Qty: 30 0RF Referrals / Follow Up: Mitesh Wyman MD [Primary Care Provider] - Disposition Disposition (needs filled in before D/C Order can be placed): Home, Self Care
--- NOTE | 2022-08-13 13:16 | PCM.DC.SUM ---
Providers Date of Admission: 08/11/22 Primary Care Physician: Dr. Mitesh Wyman MD Attending Physician: This is discharge summary on Asuncion Schroeder. This patient was admitted on Thursday 2 days ago for lumbar laminectomy at L5-S1. He tolerated the procedure well. He was slow to get moving yesterday so we kept her in 1 more day. In addition she has to go about 13 steps up to get in to her apartment. Yesterday she simply was not ready for that. The surgeon on need to take into account not just medical issues but also social issues and personal life issues of the patient. Discharge she reports that her leg pain is mostly gone and her back pain is quite tolerable. She feels better today than she did yesterday. Her dressing is dry. She was given directions as to when to remove it on Thursday and start showering on Thursday. She will make an appointment to see me 2 weeks postop. Gave her some Valium and some oxycodone for pain and muscle spasms for discharge. This the end of discharge summary Asuncion Alexandre. This is Dr. Duarte dictating. Consultations 08/11/22 10:40 Consult: Hospitalist Routine Consulting Provider: Brice Bailey Reason for Consult: Medical Management EMERGENT Consult: No MD Notified: Yes Date Notified: 08/11/22 Time Notified: 13:08 Method of Notification: Text Reason For Visit: lumbar laminectomyy l5-s1 rt Diagnosis Discharge Diagnosis (1) Herniated nucleus pulposus, L5-S1, right: Status: Acute Code(s): M51.27 - Other intervertebral disc displacement, lumbosacral region Medications at Discharge Home Medications aspirin 325 mg tablet 650 mg PO TID PRN PRN Pain 07/16/22 escitalopram oxalate 5 mg tablet (Lexapro) 5 mg PO DAILY #30 tabs 07/16/22 ferrous sulfate 325 mg (65 mg iron) tablet (iron) 350 mg PO BID 07/16/22 diazepam 5 mg tablet (Valium) 5 mg PO TID PRN muscle spasm #20 tabs 08/13/22 oxycodone-acetaminophen 5 mg-325 mg tablet 1 tab PO Q6H PRN pain 7 days #30 tabs 08/13/22 Weight / BMI Weight Weight: 288 lb 12.889 oz Body Mass Index (BMI) 45.2 ABG / Lab / Microbiology Data Result Diagrams: 08/12/22 05:35 08/12/22 05:35 Microbiology: Microbiology 07/30/22 08:11 Swab (Method) Nasal Screen MRSA/MSSA - Final D/C Instructions May shower in (days): 4 May resume sexual activity in: 4-6 weeks Weight Bearing Status: Full weight bearing Meaningful Use Info Meaningful Use Diagnoses (Choose all that apply): None applicable Discharge Plan Admission Admit Date/Time: 08/11/22 10:10 Primary Reason for Your Visit: back surgery Attending Provider: Joshua Duarte Primary Care Provider: Mitesh Wyman Consulting Providers: Brice Bailey Kathryn Discharge Orders/Prescriptions Prescriptions: No Action escitalopram oxalate [Lexapro] 5 mg tablet 5 mg PO DAILY Qty: 30 0RF aspirin 325 mg Tablet 650 mg PO TID PRN PRN (Reason: Pain) ferrous sulfate [iron] 325 mg (65 mg iron) Tablet 350 mg PO BID diazepam [Valium] 5 mg tablet 5 mg PO TID PRN (Reason: muscle spasm) Qty: 20 0RF oxycodone-acetaminophen 5-325 mg tablet 1 tab PO Q6H PRN (Reason: pain) 7 Days Qty: 30 0RF Referrals / Follow Up: Mitesh Wyman MD [Primary Care Provider] - Disposition Disposition (needs filled in before D/C Order can be placed): Home, Self Care
--- NOTE | 2022-08-13 13:30 | CASEMGMT ---
Per Sallie, pt is not eligible for a walker through insurance d/t receiving a rollator. RN CM into pt room, pt states she will try it at home with her rollator and if she needs a FWW she will obtain on own. Provided her with a rx for FWW. Pt denies further needs and is ready for dc.
[2022-08-13 13:41] VITALS: BP 128/67; PULSE 90; RESP 18; TEMP 36.5; O2SAT 100
--- NOTE | 2022-08-13 14:41 | PHA.DC.MR ---
Pharmacy Service has performed discharge medication reconciliation for this patient. The patient's discharge medication list was reviewed for discrepancies and discrepancies were resolved. Medication education papers prepared, patient discharged when counseling was attempted. Home Medications aspirin 325 mg tablet 650 mg PO TID PRN PRN Pain 07/16/22 escitalopram oxalate 5 mg tablet (Lexapro) 5 mg PO DAILY #30 tabs 07/16/22 ferrous sulfate 325 mg (65 mg iron) tablet (iron) 350 mg PO BID 07/16/22 diazepam 5 mg tablet (Valium) 5 mg PO TID PRN muscle spasm #20 tabs 08/13/22 oxycodone-acetaminophen 5 mg-325 mg tablet 1 tab PO Q6H PRN pain 7 days #30 tabs 08/13/22
== END 2022-08-13 14:38 | disposition home or self-care (01) ==
LOC: MS3 08-12 06:57 → SDC 08-12 08:40 → MS3 08-12 08:40
PROVIDERS: Anesthesiology; Family Medicine; Admitting Provider Orthopaedic Surgery; PCP Family Medicine; Referring Provider Orthopaedic Surgery; Visit Provider Orthopaedic Surgery
PROC: (CPT 63030; principal; 2022-08-11 07:00)
DX: M51.17 Intervertebral disc disorders with radiculopathy, lumbosacral region (principal); F32.A Depression, unspecified; Z79.899 Other long term (current) drug therapy; N30.10 Interstitial cystitis (chronic) without hematuria; F41.9 Anxiety disorder, unspecified
CPT/HCPCS: 63030; 00630; 36415; 72020; 80048; 81025; 82962; 83735; 85025; 86703; 86706; 86708; 86803; 87081; 88304; 93005; 94640; 94668; 96365; 96366; 97162; 97530; 99221; 99252; J7120; A4216; G0378; G0463; J2405

== ENCOUNTER 2022-09-04 07:37 | Outpatient (RCR) | payer OTHER, SELFPAY ==
[2022-09-04 00:39] VITALS: BP 150/92; PULSE 70
--- NOTE | 2022-09-04 09:05 | BH.SGPN.GN ---
Behaviors/Verbalizations/Mental Status: [] Eye contact is good. Motor activity is appropriate. Appearance is casual. Speech is Appropriate. Mood is anxious. Affect is full. Thoughts are linear and logical. No evidence of psychosis. Reviewed daily check in sheet and no reports of suicidal ideations or intent. Client Response/Progress/Benefit: [] Pt was an active participant in group discussion. Attentive.Daily symptom tracker notes 3/5 for irritability and 2/5 for anxiety. Emotion for today is anxious. Mental health win was i walked a mile yesterday. Increased physical activity and exercise which is improving energy, mood, and and motivation. She also competed a creative art project. Believes that she has improved in her ability to manage her stressor through coping skills such as reframing and acceptance. Benefited from group support, encouragement, and feedback. Will continue in IOP to maintain gains, prevent decompensation, and improve functioning. Narrative Note: []
--- NOTE | 2022-09-04 10:10 | BH.SGPN.GN ---
Behaviors/Verbalizations/Mental Status: []Client alert and oriented, casually dressed and groomed. Eye contact good. Motor activity appropriate. Speech within normal limits. Affect congruent. mood euthymic. Thoughts linear, logical, no signs of hallucinations or delusions. Client Response/Progress/Benefit: []Client was an active participant in group discussions and activity. Attentive during psychoeducation. Client engaged in activity in which group was able to make connections about how can be easier to find positives in others compared to self. Engaged in interactive discussion on the definition of perspective, how perspective is formed, and why perspective is important in treatment. Client shared how her perspective towards treatment was initially negative but by being more open minded she has a more positive perspective now. Will continue in IOP to continue use of skills, decrease anxiety, and prevent decompensation.
--- NOTE | 2022-09-04 11:13 | BH.SGPN.GN ---
Behaviors/Verbalizations/Mental Status: []Pt alert and oriented, casually dressed and groomed. Eye contact good. Motor activity appropriate. Speech within normal limits. Affect congruent, mood euthymic. Thoughts linear, logical, no signs of hallucinations or delusions. Client Response/Progress/Benefit: []Pt was attentive and contributed to small group discussion. Pt reflected on their perspective today which pt shared was hopeful, but also hesitant ?about being hopeful.? Pt stated she has been trying to give herself more credit and challenge the anxious thoughts that tell pt things will not work out. Pt worked with group to identify strategies to challenge one?s perspective and one of these strategies was identifying and using strengths. Pt acknowledged one of their personal strengths as being socially aware and pt wants to work on challenging perspective by practicing dialectical thinking and reminding herself of strengths. Benefited from identifying personal strengths and strategies for challenging perspective. Pt to continue IOP tx to promote mood stability, reinforce healthy coping skills, and improve self-compassion. ? Narrative Note: []
--- NOTE | 2022-09-05 09:00 | BH.SGPN.GN ---
Behaviors/Verbalizations/Mental Status: [] Eye contact is good. Motor activity is appropriate. Appearance is casual. Speech is Appropriate. Mood is euthymic. Affect is full. Thoughts are linear and logical. No evidence of psychosis. Reviewed daily check in sheet and no reports of suicidal ideations or intent. Client Response/Progress/Benefit: [] Pt was an active participant in group discussions. Attentive. Emotion for today is present. Daily symptom tracker notes 04/10 for anxiety and agitation. Overall reports improved mood since last session. Menta, health wins include walking around [employer]. Shared that her physical pain has decreased since recent surgery which has allowed her to be more active. Two months ago her pain would have been to severe to walk around [employer]. Pain reduction has led to increased activity, decreased hopelessness, and overall improve energy. She is focusing more on her future stating that she had a brainstorming session with her support and therapist regarding possible future careers. I've come up with 3 options. Shared stressors, ruminations, and worries however reports that she is managing her overall emotions well. Benefited from group support, encouragement, and support. Will continue in IOP to maintain gains, increase healthy coping, and stablize mood. Narrative Note: []
--- NOTE | 2022-09-05 10:05 | BH.SGPN.GN ---
Behaviors/Verbalizations/Mental Status: []Pt alert and oriented, casually dressed and groomed. Eye contact good. Motor activity appropriate. Speech within normal limits. Affect constricted, mood irritable. Thoughts linear, logical, no signs of hallucinations or delusions. Client Response/Progress/Benefit: []Pt responded well to session, attentive and providing to discussion. Pt connected with the quote and shared that feeling are good signals that help us see what is wrong, but sometimes lead to unhealthy choices. Pt gave example of when she feels guilt and shame, pt tends to isolate and her depression worsens. Group discussed other impacts of unmanaged guilt which included withdrawing from relationships and lack of boundaries. Pt participated in activity and recognized that when she felt frustrated, pt wanted to quit, but pt challenged herself not to. Pt appeared to benefit from learning about the different types of guilt and how unmanaged guilt can impact mental health. Pt will continue IOP tx to promote mood stability and reinforce healthy coping skills. Narrative Note: []
--- NOTE | 2022-09-05 11:10 | BH.SGPN.GN ---
Behaviors/Verbalizations/Mental Status: []Pt alert and oriented, casually dressed and groomed. Eye contact fair. Motor activity appropriate. Speech within normal limits. Affect congruent, mood anxious and slightly irritable. Thoughts linear, logical, no signs of hallucinations or delusions. Client Response/Progress/Benefit: []Pt engaged participant AEB listening attentively to others and providing input throughout group. During challenge activity pt demonstrated increased agitation as the activity became hard. During processing client was able to connect if she doesn't manage her feelings of guilt and challenge unhealthy guilt it can lead to increased consequences and problems in life. Pt attentive during psychoeducation about different strategies to manage guilt. Pt worked with her small group to identify strategies to manage unhealthy guilt. Client shared she feels guilty when she believes her supports are neglecting her needs. Client able to use strategies discussed to work through her feelings. Pt seemed to benefit from learning about strategies to manage healthy and unhealthy guilt. Pt to continue IOP to continue challenge distortions, continue using healthy skills, and prevent decompensation.
--- NOTE | 2022-09-10 09:00 | BH.SGPN.GN ---
Behaviors/Verbalizations/Mental Status: [] Eye contact is good. Motor activity is appropriate. Appearance is casual. Speech is Appropriate. Mood is euthymic. Affect is full. Thoughts are linear and logical. No evidence of psychosis. Reviewed daily check in sheet and no reports of suicidal ideations or intent. Client Response/Progress/Benefit: [] Pt was an active participant in group discussion. Attentive. Daily symptom tracker notes 3/ for irritability. Emotion for today is feeling really positive. Significant mental health win is that she went clothes shopping yesterday which she has not done in several years. Elaborate on how this was beneficial to her self-esteem and overall mental health. Shared other significant changes which had impact on her intrusive thoughts regarding her health. Consistent mental halth stability and she shared she is going to be discharging from IOP this week. Benefited from group support, encouragement, and feedback. Will continue in [facility] to maintain gains. Narrative Note: []
--- NOTE | 2022-09-10 10:15 | BH.SGPN.GN ---
Behaviors/Verbalizations/Mental Status: []Eye contact is good. Motor activity is appropriate. Appearance is casual. Speech is Appropriate. Mood is euthymic. Affect is congruent. Thoughts are linear and logical. No evidence of psychosis. Client Response/Progress/Benefit: []Pt was an engaged participant AEB providing input, listening to others, and taking notes. Participated in interactive group discussion on internal and external barriers to mental health progress. Pt described current reality using a beach metaphor. Pt shared feeling like ?I?m able to protect myself from the sun/intrusive thoughts sometimes, but not as much as I?d like?. Reported desired reality is being able to have more social connections and be able to dismiss intrusive thoughts even more consistently. Pt shared personal barrier to desired realty include intrusive thoughts. ?Benefited from increased awareness of current barriers to progress as well as current/desired realities. Pt to continue IOP tx for one more day to reinforce healthy coping skills and establish aftercare. ?? Narrative Note: []
--- NOTE | 2022-09-10 11:10 | BH.SGPN.GN ---
Behaviors/Verbalizations/Mental Status: []Client alert and oriented, casually dressed and groomed. Eye contact good. Motor activity appropriate. Speech within normal limits. Affect congruent to topics being discussed, mood euthymic. Thoughts linear, logical, no signs of hallucinations or delusions. Client Response/Progress/Benefit: []Client an active participant, encouraging peers and contributed as group brainstormed ideas on how to cope with internal barriers that keep clients stuck from moving towards goals. Able to identify barriers to desired reality. Worked with group to identify strategies to help overcome barriers. Identified personal barriers to desired reality. Client wants to work on overcoming the barrier of poor boundaries by practicing/rehearsing conversations and using dialectical thinking. Benefited from group by identifying obstacles and solutions to desired reality. Client to continue IOP to continue use of healthy coping, continue challenging negative thinking, and prevent decompensation.
--- NOTE | 2022-09-10 14:54 | BH.MDN_ITS ---
Multi-Disciplinary Note - Note 30-min Individual Time Started:: 12:05 Date: 09/10/22 Purpose of session/treatment goals addressed:: Purpose of session was to identify treatment progress, solidify aftercare plans, and complete maintenance plan. Eye Contact:: Good Motor Activity:: Appropriate Appearance:: Casual Speech:: Appropriate Mood:: Euthymic Affect:: Congruent Thoughts:: Linear, Logical, No evidence of hallucinations/delusions noted Staff Interventions:: CBT techniques, discharge planning, strengths perspective, reviewed DSM-5, other - maintenance plan Client Response:: Client reported she feels nervous about discharge this week from [facility] but realizes she does have the skills to help her manage symptoms. Client reported she will be working with Stephanie Nixon for individual therapy and plans to attend [facility] aftercare program. Client is staying she can note significant treatment progress since starting [facility]. Client reported she does not engage in as many checking behaviors as she used to, has not checked her blood pressure or heart rate, and feels more able to challenge distorted thoughts. Per client's DSM-V at discharge her scores indicate a 52% overall reduction in symptoms, a 60% reduction in depression, and a 64% reduction in anxiety. Client stated she does believe she has made significant treatment progress. Client reported feeling more hopeful about her future and now has a tentative game plan on what she wants to do for her career which has also helped decrease anxiety. Client worked cooperatively with therapist to complete a maintenance plan. Client identified triggers, warning signs, self-care activities, and healthy coping skills on her maintenance plan. Risks/Concerns:: Denies suicidal ideation, plan, or intention. Progress Toward Goals/Plan:: Client has shown significant treatment progress as evidenced by DSM-V cross-cutting measure at discharge as stated above. Client also reports significant treatment progress with decreased anxiety, decreased depression and hopefulness for her future. Plan is for client to discharge from [facility] tomorrow. Client is in the process of completing paperwork to establish with [facility] for psychiatry in the meantime her PCP will continue to prescribe her medications. Client also is in the process of establishing with Stephanie Nixon for individual therapy. Client will begin aftercare at [facility] on 09/18/2022. Time Stopped:: 12:35
--- NOTE | 2022-09-11 09:00 | BH.SGPN.GN ---
Behaviors/Verbalizations/Mental Status: [] Eye contact is good. Motor activity is appropriate. Appearance is casual. Speech is Appropriate. Mood is euthymic. Affect is congruent. Thoughts are linear and logical. No evidence of psychosis. Reviewed daily check in sheet and no reports of suicidal ideations or intent. Client Response/Progress/Benefit: [] Pt engaged in group session AEB sharing thoughts and feelings and listening attentively to others. Pt reported mental health positive as finishing a [employer] saw puzzle yesterday which is a hobby she recently got back to engaging in. Pt stated additional win as graduating from [facility] today. Pt reported she can note significant treatment progress within herself since starting IOP. Identified her biggest worry is adjusting to losing the routine of being at [facility] three times a week. Seemed to benefit from support from peers. Will discharge from [facility] today.
--- NOTE | 2022-09-11 10:10 | BH.SGPN.GN ---
Behaviors/Verbalizations/Mental Status: [] Eye contact is good. Motor activity is appropriate. Appearance is casual. Speech is Appropriate. Mood is euthymic. Affect is full. Thoughts are linear and logical. No evidence of psychosis. Client Response/Progress/Benefit: [] Pt was an active participant in group discussion. Attentive. Participated in and was engaged during experiential activity. Participated during interactive discussion on what failure means to the group in which peers identified that failure is ... not meeting expectations, not having a desired outcome, and not succeeding in a task. Group was able to identify how fear of failure can lead to inaction, not trying, avoiding, giving up, lowering expectations, and remaining stuck. Participated during interactive discussion on the role that FOF plays in mental wellness, depression, anxiety, and growth. Able to connect the experiential activity to FOF. Benefited from increased awareness of how the role that FOF plays in mental health and decision-making. Plan is to discharge pt from [facility] today. Narrative Note: []
--- NOTE | 2022-09-11 11:10 | BH.SGPN.GN ---
Behaviors/Verbalizations/Mental Status: []Client alert and oriented, casually dressed and groomed. Eye contact good. Motor activity appropriate. Speech within normal limits. Affect congruent, mood euthymic and anxious. Thoughts linear, logical, no signs of hallucinations or delusions. Client Response/Progress/Benefit: []Client responded well to session, engaged in the experiential activity and attentive throughout group processing. Client reported fear of failure has kept client from trying new things, making new friends, and spending time with current friendships. Client completed fear of failure worksheet and was able to identify thoughts and behaviors that reinforce personal fear of failure including: past experiences, minimizing her accomplishments, and fear of being seen as stupid. Client participated in small group discussion regarding strategies to overcome fear of failure. Identified wanting to work on positive affirmations, using an accomplishment log, and being more selective about her supports. Appeared to benefit from increased knowledge of strategies to combat fear of failure and gaining self-awareness. Client to d/c from IOP tx and recommended continued outpatient tx to maintain gains, further reduce distortions, and continue to work on anxiety management. Narrative Note: []
--- NOTE | 2022-09-12 12:55 | BH.DS_ITS ---
Discharge Summary Demographics Date of Admission:: 07/15/22 Discharge Date: 09/12/22 Presenting Problems at Admission:: The patient is a 21-year-old single with hx of depression, anxiety and eating disorder. Last worked in the fall 2020 and has been taking online college courses. Pt referred herself to the program as she obsesses over having a medical illness and worries about dying everyday for the last two years. Pt has hx of several medical issues, which make it challenging for pt to discern between what is a real medical problem and what is intrusive. Pt reports daily anxiety in which she constantly checks her heart rate, spends 3 hours a day googling her symptoms, and checks her blood pressure multiple times a day. Pt states if she feels she has a illness she will try to see a healthcare provider or get medication for her issue. Pt endorses hopelessness, depressed mood, low motivation, negative thoughts, anhedonia, and low energy. Difficulty completing her ADL?s and having hard time completing her course work for college. Discharge Diagnoses:: 1. Illness anxiety disorder?care seeking type (F45.21) 2. Major depressive disorder, recurrent, moderate 3. Generalized anxiety disorder Reason for Discharge:: Pt has made significant treatment progress since starting IOP an no longer meets criteria for IOP level of care. Treatment Progress During Treatment & Response: Per pt's DSM 5 cross cutting measure at discharge scores show a 60% decrease in depression, 64% reduction in generalized anxiety, 40% in OCD symptoms, and an overall 52% reduction in mental health symptoms. Pt has decreased her compulsive checking of her vital signs and doesn't spend hours on google trying to figure out what's wrong with her medically. Pt reports improved daily functioning and hopeful outlook on her future. Issues Still to be Addressed:: Client could benefit from continued work on managing anxious symptoms, continuing to challenge anxious thoughts, and maintenance of her healthy anxiety management skills. Discharge Recommendations/Instructions:: Client is in the process of completing paperwork to establish with [facility] for psychiatry in the meantime her PCP will continue to prescribe her medications. Client also is in the process of establishing with Stephanie Nixon for individual therapy. Client will begin af tercare at [facility] on 09/18/2022. Discharge Handout
== END 2022-09-11 12:00 | disposition home or self-care (01) ==
LOC: BHIOP 07:37
PROVIDERS: PCP Family Medicine; Referring Provider Psychiatry & Neurology Psychiatry; Visit Provider Psychiatry & Neurology Psychiatry
DX: F45.21 Hypochondriasis (principal); F33.1 Major depressive disorder, recurrent, moderate; F41.1 Generalized anxiety disorder
CPT/HCPCS: S9480; 90832; 90853

== ENCOUNTER 2022-09-18 08:00 | Outpatient (RCR) | payer OTHER, SELFPAY ==
--- NOTE | 2022-09-18 14:00 | BH.SGPN.GN ---
Behaviors/Verbalizations/Mental Status: []Pt alert and oriented, casually dressed and groomed. Eye contact good. Motor activity appropriate. Speech within normal limits. Affect congruent, mood content. Thoughts linear, logical, no signs of hallucinations or delusions. Client Response/Progress/Benefit: []Pt responded well to session AEB sharing and listening attentively to others. Pt has not yet followed up with her outpatient mental health appointments however shared starting the initial intake paperwork. Reports maintaining consistent with medications. Pt reports using self-compassion, thought challenging, and ?Vasquez Mind? to help with managing her mental health symptoms. Pt participated in group discussion defining affirmations and why they are important. Pt provided insight throughout clinician?s presentation of tips for writing personal affirmations and wrote her own affirmations, including ?I CAN do hard things!?. Pt appeared to benefit from increased knowledge of affirmation writing skills and creating her own affirmational statements to remind herself of outside tx environment. Will continue aftercare treatment to reinforce healthy coping skills and promote gains. ? Narrative Note: []
--- NOTE | 2022-09-18 15:37 | BH.MTP ---
Master Treatment Plan Patient Information Program Physician:: Dr. Mae Primary Therapist:: Shwetha Carrera [facility] Psychiatric Diagnoses Psychiatric Diagnoses:: 1. Illness anxiety disorder?care seeking type (F45.21) 2. Major depressive disorder, recurrent, moderate 3. Generalized anxiety disorder Diagnosis Code(s):: F45.21 Estimated LOS Estimated LOS (in weeks):: 8 Problem/Goal #1 Problem/Goal #1 Stated Goal:: client will maintain or see a reduction in symptoms AEB client score on the DSM 5 cross-cutting measure and improve client's daily functioning. Objectives Objective #1: Stated Objective: Client will continue to consistently apply healthy coping skills to maintain progress made in IOP tx. Interventions: Through group therapy, client will review warning signs and triggers as well as healthy coping skills learned in IOP tx to successfully maintain gains while transitioning into outpatient therapy. Discharge Criteria: Client will have accomplished this goal when client's score on the DSM-5 cross-cutting measure has either maintained or reduced over a 8 week period. Target Date: 11/13/22 Review Date: 10/16/22 Objective #2: Stated Objective: Client will learn and utilize 2-3 maintenance strategies to prevent decompensation. Interventions: Through group therapy, client will be provided with education on healthy maintenance behaviors, relapse prevention techniques, and healthy coping strategies Discharge Criteria: Client will have accomplished this goal when can report using at least 2 maintenance skills to prevent decompensation. Target Date: 11/13/22 Review Date: 10/16/22
--- NOTE | 2022-09-24 15:38 | BH.COMM ---
Communication Note - Communication with Client Communication Note: Patient completed IOP and presents today to start relapse prevention group which meets once weekly (1.5 hours) for 8 weeks. Case discussed with Dr. Mae with plan to admit with dx of F45.21
--- NOTE | 2022-10-20 15:27 | BH.MTP_ITS ---
Master Treatment Plan Patient Information Program Physician:: Dr. Mae Primary Therapist:: Shwetha Carrera [facility] Psychiatric Diagnoses Psychiatric Diagnoses:: 1. Illness anxiety disorder?care seeking type (F45.21) 2. Major depressive disorder, recurrent, moderate 3. Generalized anxiety disorder Diagnosis Code(s):: F45.21 Estimated LOS Estimated LOS (in weeks):: 8 Problem/Goal #1 Problem/Goal #1 Stated Goal:: Client will maintain or see a reduction in symptoms AEB client score on the DSM 5 cross-cutting measure and improve client's daily functioning. Objectives Objective #1: Stated Objective: Client will continue to consistently apply healthy coping skills to maintain progress made in IOP tx. Interventions: Through group therapy, client will review warning signs and triggers as well as healthy coping skills learned in IOP tx to successfully maintain gains while transitioning into outpatient therapy. Discharge Criteria: Client will have accomplished this goal when client's score on the DSM-5 cross-cutting measure has either maintained or reduced over a 8 week period. Target Date: 11/13/22 Review Date: 10/16/22 Objective #2: Stated Objective: Client will learn and utilize 2-3 maintenance strategies to prevent decompensation. Interventions: Through group therapy, client will be provided with education on healthy maintenance behaviors, relapse prevention techniques, and healthy coping strategies Discharge Criteria: Client will have accomplished this goal when can report using at least 2 maintenance skills to prevent decompensation. Target Date: 11/13/22 Review Date: 10/16/22
== END 2022-10-03 23:59 ==
LOC: BHOG 08:00
PROVIDERS: PCP Family Medicine; Referring Provider Psychiatry & Neurology Psychiatry; Visit Provider Psychiatry & Neurology Psychiatry
DX: F45.21 Hypochondriasis (principal)
CPT/HCPCS: 90853

== ENCOUNTER 2022-10-06 07:13 | Outpatient (RCR) | payer OTHER, SELFPAY ==
--- NOTE | 2022-10-16 14:00 | BH.SGPN.GN ---
Behaviors/Verbalizations/Mental Status: []Pt alert and oriented, casually dressed and groomed. Eye contact good. Motor activity appropriate. Speech within normal limits. Affect congruent, mood content. Thoughts linear, logical, no signs of hallucinations or delusions. Client Response/Progress/Benefit: []Pt receptive of session, actively engaged throughout. Reports she has not recently had an appointment for outpatient counseling, however, does have a scheduled?appointment for next week. Pt is currently taking her psychiatric medication and following up with outpatient psychiatrist. Reports use of opposite action, melissa-mind, reaching out to supports to aid in continued maintenance and mood stability. Pt was attentive throughout the group discussion on the relationship between emotions and behaviors. Pt provided examples of ways her emotions have dictated her behaviors in the past and consequences of this. Shared she struggles at times with knowing how to accept and express shame. Connected with psychoeducation portion reviewing 5 aspects of appropriately managing feelings. Noted wanting to work on the Expressing Feelings aspect and identified plans to practice more assertive communication when sharing her emotions. Pt will continue with aftercare tx for ongoing support, to maintain gains, and promote continued mood stability. Narrative Note: []
--- NOTE | 2022-10-16 15:42 | BH.MTP_ITS ---
Treatment Plan Review Demographics Date of Admission:: 09/18/22 Date of Treatment Plan Review:: 10/16/22 Admitting Diagnoses:: 1. Illness anxiety disorder?care seeking type (F45.21) 2. Major depressive disorder, recurrent, moderate 3. Generalized anxiety disorder Current Diagnoses:: 1. Illness anxiety disorder?care seeking type (F45.21) 2. Major depressive disorder, recurrent, moderate 3. Generalized anxiety disorder Patient Status Patient's Response to Treatment:: Pt responding well to treatment AEB overall consistent attendance and engagement in group sessions. Pt utilizes IOP aftercare to process current stressors and identify coping strategies. Status of Current Problems and Symptoms: Client continuing to report mild depressive and anxious symptoms. Ongoing stressors of unsure about her future career, health issues, and chronic pain. Progress Problem #1: Problem Name:: maintenance of progress Status of Goals:: obj 1 - met. Per pt's DSM 5 at review her scores show an overall 45% reduction in symptoms, 60% reduction in depression and a 64% red uction in anxiety when compared to intake scores from IOP. obj 2 - met. pt able to identify healthy maintenance skills and utilizing skills to manage symptoms. Team Recommendations:: Recommended client continue IOP aftercare group in addition to attending regular outpatient counseling in order to maintain gains.
--- NOTE | 2022-10-23 14:00 | BH.SGPN.GN ---
Behaviors/Verbalizations/Mental Status: []Pt alert and oriented. casually dressed and groomed. Eye contact good. Motor activity appropriate. Speech within normal limits. Affect congruent, mood euthymic. Thoughts linear, logical, no signs of hallucinations or delusions. Client Response/Progress/Benefit: []Pt responded well to session, attentive and engaged. Pt reports she has been taking her medications consistently, but she did not have appointments with a counselor or psychiatrist this week. Pt states she has been using sitting with the uncomfortable and not engaging in checking behaviors which has helped pt manage anxiety. Pt also has been more social lately and enjoying this. Pt receptive to discussion and reading of the Chapters of My Life handout. Pt able to connect with the chapters and stated belief she is in chapter 3-4 which means pt is changing old, unhelpful behaviors, but sometimes still slips back. Pt shared to keep moving forward, she wants to remind herself of her achievements up to this point. Pt appeared to benefit from connecting with peers and reflecting on her application of coping skills. Pt will continue IOP aftercare to promote gains made in IOP and reinforce healthy coping skills. Narrative Note: []
--- NOTE | 2022-10-30 14:00 | BH.SGPN.GN ---
Behaviors/Verbalizations/Mental Status: []Pt alert and oriented, neatly dressed and groomed. Eye contact good. Motor activity appropriate. Speech within normal limits. Affect congruent, mood euthymic. Thoughts linear, logical, no signs of hallucinations or delusions. Client Response/Progress/Benefit: [] Pt receptive of session, engaged throughout. Pt reports she is consistent with medications but she did not have a therapy session this week. Pt reports thought challenging, watching a show, and self-compassion helped with recent stressors. ?Receptive of discussion on personal accountability and its importance in maintaining mental health stability. Engaged in brainstorming strategies for improving ability to hold themselves accountable. Reported wanting to work on completing an entry in her daily accomplishment log. Pt shared she is data driven, so writing down recipes each Thursday will hold pt accountable. Pt seemed to benefit from support from peers and increasing understanding of personal accountability benefits and strategies. Will continue IOP aftercare group to maintain gains and prevent decompensation. Narrative Note: []
== END 2022-11-03 23:59 ==
LOC: BHOG 07:13
PROVIDERS: PCP Family Medicine; Referring Provider Psychiatry & Neurology Psychiatry; Visit Provider Psychiatry & Neurology Psychiatry
DX: F45.21 Hypochondriasis (principal); F33.1 Major depressive disorder, recurrent, moderate; F41.1 Generalized anxiety disorder
CPT/HCPCS: 90853

== ENCOUNTER → 2022-10-29 | Outpatient (CLI) | payer OTHER, SELFPAY | END | disposition home or self-care (01) | LOC: LABSPEC 12:44 | PROVIDERS: PCP Family Medicine; Referring Provider Physician Assistant Surgical; Visit Provider Physician Assistant Surgical | DX: N39.0 Urinary tract infection, site not specified (principal) | CPT/HCPCS: 87086 ==

== ENCOUNTER 2022-11-04 07:13 | Outpatient (RCR) | payer OTHER, SELFPAY ==
--- NOTE | 2022-11-13 14:00 | BH.SGPN.GN ---
Behaviors/Verbalizations/Mental Status: []Client alert and oriented, casually dressed and groomed. Eye contact fair to good. Motor activity appropriate. Speech within normal limits. Affect congruent, mood depressed, grieving. Thoughts linear, logical, no signs of hallucinations or delusions. Client Response/Progress/Benefit: []Receptive of session, engaged throughout. Pt reports she has struggled with healthy coping this week due to the unexpected loss of her cat. Noted use of reaching out to supports, joining a support group for pet loss, and taking breaks as coping skills aiding in ongoing mental health maintenance. Engaged and attentive during discussion of vulnerability and benefits of practicing vulnerability. Shared being vulnerable has not been easy for her as she struggles with opening up to people. Group discussed ways we avoid feeling vulnerable and how this negatively affects mental health and relationships. Appeared to benefit from group support and discussion reflecting on the positive impact vulnerability can have on mental health. Identified plans to challenge herself to open up about her grief as a way in which she could practice being vulnerable in the next week. Pt will d/c from aftercare today and continue with individual outpatient counseling. Narrative Note: []
--- NOTE | 2022-11-13 16:00 | BH.DS_ITS ---
Discharge Summary Demographics Date of Admission:: 09/18/22 Discharge Date: 11/13/22 Presenting Problems at Admission:: Pt discharged from IOP tx and transitioned to IOP aftercare to maintain gains pt made in IOP and to reinforce healthy coping skills. At admission to IOP aftercare, pt continued to report symptoms of depression, anxiety, and worries about health. Pt also was experiencing stressors with finding a job, challenging negative core beliefs, and maintaining self-care. Discharge Diagnoses:: 1. Illness anxiety disorder?care seeking type (F45.21) 2. Major depressive disorder, recurrent, moderate 3. Generalized anxiety disorder Reason for Discharge:: Pt has accomplished tx goals AEB ability to maintain gains made in IOP. Pt's DSM-5 overall scores decreased by an 55% from IOP admission. Pt will transition to traditional outpatient counseling. Treatment Progress During Treatment & Response: Pt responded well and made progress in IOP aftercare as evidenced by pt's participation in group discussions and self- report of consistently applying coping skills. Pt's overall DSM-5 scores decreased by 55% from IOP admission. Pt?s depression decreased by 40% since original IOP admission, pt's scores for anxiety decreased by 64% compared to original IOP scores, and somatic symptoms decreased by 86%. Additionally, at discharge pt was reporting consistently practicing self-care, using healthy coping skills, and communicating with supports. Pt still has symptoms and stressors that need resolved and processed, but pt reports overall increased ability to cope. Issues Still to be Addressed:: Decrease reassurance seeking about health related anxiety, self-care maintenance, and reinforcing healthy core beliefs. Discharge Recommendations/Instructions:: Client had completed intake paperwork for [id number], but is still on wait list. PCP is prescribing her medications. Client is recommended to continue seeing Stephanie Nixon for outpatient counseling. Discharge Handout
== END 2022-11-14 07:04 | disposition home or self-care (01) ==
LOC: BHOG 07:13
PROVIDERS: PCP Family Medicine; Referring Provider Psychiatry & Neurology Psychiatry; Visit Provider Psychiatry & Neurology Psychiatry
DX: F45.21 Hypochondriasis (principal); F41.1 Generalized anxiety disorder; F33.1 Major depressive disorder, recurrent, moderate
CPT/HCPCS: 90853

== ENCOUNTER 2023-01-12 04:52 | Emergency (ER) | payer OTHER, SELFPAY ==
[2023-01-12 04:53] VITALS: BP 141/97; PULSE 122; RESP 18; TEMP 36.7; O2SAT 98; BMI 43.7
[2023-01-12 04:56] VITALS: BP 141/97; PULSE 122; RESP 18; TEMP 36.7; O2SAT 98
[2023-01-12 05:38] LABS: Mucous, Urine 0 SEEN /hpf (<or=2+); Red Blood Cells-Urine 0 SEEN /hpf (0-5)
--- NOTE | 2023-01-12 05:38 | EDS_ITS ---
HPI HPI - GI History of Present Illness Chief Complaint: Flank Pain Narrative Narrative: Old male presenting with left-sided abdominal pain. She stated it woke her up from sleep. It is sharp in nature. She had nausea and vomiting. Denies history of kidney stones. She does have history of ovarian cyst that she has PCOS. No urinary or vaginal complaints. No constipation or diarrhea. No fevers or chills. Patient states she had a cold last week but has been recovering. She does not have chest pain or shortness of breath. PFSH PFS Medical History Anxiety Back pain Depression Generalized anxiety disorder History of echocardiogram History of pain when walking History of pulmonary function tests History of steroid therapy IC (interstitial cystitis) Illness anxiety disorder Major depressive disorder, recurrent, moderate Marijuana use Non-smoker Pain PCOS (polycystic ovarian syndrome) Shortness of breath on exertion UTI (urinary tract infection) Home Medications escitalopram oxalate 10 mg tablet (Lexapro) 20 mg PO DAILY 01/12/23 [History Last Taken Unknown] Allergy/AdvReac Type Severity Reaction Status Date / Time No Known Allergies Allergy Verified 01/12/23 04:58 Family History Unknown Diabetes Hypertension Surgical History History of hip surgery Social History Smoking Status: Never smoker alcohol intake: never substance use type: marijuana caffeine: Yes what type of physical activity do you participate in: walking frequency: 5-6 times per week seatbelt use: always do you feel safe at home: Yes additional social history: oren [facility] ED Constitutional Constitutional ED: Denies chills, fever(s) or sweats Eyes Eyes: Denies blurry vision or change in vision ENT ENT ED: Denies ear pain or sore throat Cardiovascular Cardiovascular: Denies chest pain, palpitations or racing heartbeat Respiratory/Chest Respiratory/Chest: Denies cough, dyspnea or sputum Gastrointestinal Gastrointestinal: Reports abdominal pain, nausea and vomiting; Denies constipation or diarrhea Genitourinary Genitourinary ED: Denies dysuria, hematuria or urinary frequency Musculoskeletal Musculoskeletal: Denies arthralgias, myalgias or neck pain Integumentary Denies abscess, Abrasions or rash Neurologic Neurologic: Denies headache(s), paresthesias or weakness Psychiatric Psychiatric: Denies anxiety, depression, suicidal ideation or suicidal thoughts Endocrine Endocrinology: Denies polydipsia or polyuria EXAM Physical Exam Const Vital Signs: 01/12/23 04:53 01/12/23 04:56 01/12/23 07:16 Temperature 98.0 F 98.0 F Temperature Source Oral Oral Pulse Rate 122 H 122 H 86 Respiratory Rate 18 18 16 Blood Pressure 141/97 H 141/97 H 128/72 H Blood Pressure Mean 111 111 90 Pulse Ox 98 98 97 Oxygen Delivery Method Room Air Room Air Room Air 01/12/23 07:37 Temperature Temperature Source Pulse Rate 86 Respiratory Rate Blood Pressure 128/72 H Blood Pressure Mean 90 Pulse Ox 97 Oxygen Delivery Method Positive well nourished General Appearance ED: Negative for pallor HEENT Reports moist mucous membranes normocephalic and atraumatic Eyes PERRL Resp normal respiratory effort and clear to auscultation bilaterally Auscultation: Negative for rales, rhonchi or wheezes Cardio regular rate and regular rhythm GI Palpation: tender LUQ Back/Spine no CVA tenderness Neuro CN's II-XII intact bilaterally Sensorium / Orientation: alert Motor Exam: strength 5/5 throughout Psych mental status grossly normal Skin no wounds General Skin Exam: Negative for jaundice or pallor MDM MDM MDM Narrative Medical decision making narrative: Patient presenting with right flank pain. Differential includes colitis, diverticulitis, gastritis, pancreatitis, constipation, UTI, pyelonephritis, renal calculi, ureteral calculi, bowel obstruction, malignancy, dehydration, electrolyte abnormalities, , ectopic , ovarian cyst, ovarian torsion. CBC was obtained to assess white blood cell count, hemoglobin, platelets. White blood cell count is 15.5. Hemoglobin 13.2. Platelets are 456. CMP to assess liver function, renal function, electrolytes and is all within normal limits. Lipase to assess for pancreatitis is also normal. Alysis and hCG are also negative. CT of the abdomen pelvis with IV contrast shows no acute process. Counseled on all findings. Patient this time comfortable going home. Return precautions were discussed. Impression: 1. Abdominal pain 2. Leukocytosis Lab Data Labs: Laboratory Results - last 24 hr 01/12/23 05:30 WBC 15.5 H RBC 5.14 Hgb 13.2 Hct 42.6 MCV 82.9 MCH 25.7 L MCHC 31.0 L RDW Std Deviation 39.8 RDW Coeff of Lisa 13.2 Plt Count 456 H MPV 9.9 Immature Gran % (Auto) 0.400 Neut % (Auto) 53.9 Lymph % (Auto) 36.4 [place] % (Auto) 6.1 Eos % (Auto) 2.7 Baso % (Auto) 0.5 Absolute Neuts (auto) 8.4 H Absolute Lymphs (auto) 5.62 H Nucleated RBC % 0 Differential Comment SCANNED Plt Morphology Comment LARGE Sodium 137 Potassium 3.9 Chloride 103 Carbon Dioxide 26.0 Anion Gap 8 BUN 11 Creatinine 0.88 Estim Creat Clear Calc 96.69 Est GFR (MDRD) Af Amer 103 Est GFR (MDRD) Non-Af 85 BUN/Creatinine Ratio 12.5 Glucose 119 H Calcium 8.9 Total Bilirubin 0.20 AST 8 L ALT 22 Alkaline Phosphatase 100 Total Protein 7.3 Albumin 3.3 Globulin 4.0 Albumin/Globulin Ratio 0.8 L Lipase 48 Urine Color Yellow Urine Clarity Clear Urine pH 6.0 Ur Specific Dewart 1.020 Urine Protein 15 H Urine Glucose (UA) Normal Urine Ketones Negative Urine Occult Blood Negative Urine Nitrite Negative Urine Bilirubin Negative Urine Urobilinogen Normal Ur Leukocyte Esterase 25 H Urine RBC 0 SEEN Urine WBC 0-5 SEEN Ur Squamous Epith Cells 0-5 SEEN Urine Bacteria RARE Urine Mucus 0 SEEN Urine Test Negative Radiography Diagnostic Testing: Clinical Impression(s) from Imaging Studies Abdomen/Pelvis CT 01/12/23 05:42 IMPRESSION: 1. No acute abnormality. 2. Fatty infiltration of the liver. Electronically Signed: Vasile Obregon DO at 7:24 EDT , Discharge Plan Triage Chief Complaint: Flank Pain ED Provider: Alex Gonzalez Dx/Rx/DC Orders Instructions: ED Flank Pain, Uncertain Cause Prescriptions: No Action escitalopram oxalate [Lexapro] 10 mg tablet 20 mg PO DAILY Primary Care Provider: Mitesh Wyman Referrals: Mitesh Wyman MD [Primary Care Provider] - Disposition Disposition: Home, Self Care Discharge Date/Time: 01/12/23 07:42
[2023-01-12 05:39] LABS: Absolute Lymphocyte Count 5.62 X10^3/uL (0.83-4.51); Absolute Neutrophil Count 8.4 X10^3/uL (2.0-7.7); Basophil# 0.08 X10^3/uL; Basophil% 0.5 % (0-1); Eosinophil# 0.41 X10^3/uL; Eosinophils% 2.7 % (0-5); Hematocrit 42.6 % (37-47); Hemoglobin 13.2 g/dL (12.0-15.0); Lymphocyte # 5.62 X10^3/ul (0.83-4.51); Lymphocyte % 36.4 % (19-41); Mean Corpuscular Hgb 25.7 pg (27.0-32.0); Mean Corpuscular Volume 82.9 fL (81-99); Mean Platelet Vol. 9.9 fl (6.2-12.0); Monocyte# 0.94 X10^3/uL; Monocyte% 6.1 % (0-10); NRBC Flagged by Analyzer 0 % (0-5); Neutrophil # 8.35 X10^3/uL (2.7-7.7); Neutrophil % 53.9 % (47-70); POSITIVE DIFFERENTIAL YES; Platelet Count 456 K/mm3 (150-450); RBC Distribution Width CV 13.2 % (11.6-14.6); RBC Distribution Width SD 39.8 fl (35.1-43.9); Red Blood Count 5.14 M/mm3 (4.2-5.4); White Blood Count 15.5 K/mm3 (4.4-11.0)
[2023-01-12] MEDS: Ondansetron 4 MG/2 ML Vial IV (05:39)
[2023-01-12] MEDS: 0.9% Normal Saline (1000mL) 1,000 ML 1000 ML IV (05:39)
[2023-01-12] MEDS: Morphine 4 MG/ML Syringe IV (05:41)
--- NOTE | 2023-01-12 05:42 | CT_ITS ---
INDICATION: luq pain EXAMINATION: CT Abdomen And Pelvis W/ Contrast Injection TECHNIQUE: Helically acquired images were obtained of the abdomen and pelvis with sagittal and coronal reconstructed images. Individualized dose optimization techniques were used for this CT. IV contrast dosage and agent: 100 mL of Isovue-370. Oral contrast: None. COMPARISON: None. FINDINGS: VESSELS: No abdominal aortic aneurysm or dissection. Circumaortic left renal vein. LIVER: No evidence of a mass. No intrahepatic or extrahepatic biliary duct dilation. Diffuse decreased attenuation. GALLBLADDER: No calcified stones. No evidence of cholecystitis. PANCREAS: No focal solid or cystic mass. No evidence of pancreatitis. SPLEEN: Normal. ADRENAL GLANDS: Normal. KIDNEYS AND URETERS: No urinary tract stone. No hydronephrosis or hydroureter. No significant asymmetric perinephric stranding. URINARY BLADDER: Unremarkable. BOWEL: No evidence of diverticulosis or diverticulitis. Appendix appears normal. No evidence of bowel obstruction. REPRODUCTIVE ORGANS: No evidence of a pelvic mass. PERITONEUM: No intraabdominal free fluid or free air. LYMPH NODES: No pathologically enlarged mesenteric or retroperitoneal lymph nodes. ABDOMINAL WALL: No abdominal or pelvic wall hernia. BONES: No acute abnormality. LOWER CHEST: Visualized lung bases are unremarkable. CT/Abdomen/Pelvis W IV Cont ONLY IMPRESSION: 1. No acute abnormality. 2. Fatty infiltration of the liver. Electronically Signed: Vasile Obregon DO at 7:24 EDT ,
[2023-01-12 05:45] LABS: Color, Urine Yellow (Yellow); Glucose, Dipstick Normal (Normal); Ketone-Dipstick Negative (Negative); Leukocyte Esterase-Dipstick 25 /ul (Negative); Nitrite-Dipstick Negative (Negative); Occult Blood-Urine Negative /ul (Negative); Protein-Dipstick 15 mg/dl (Negative); Urine Bilirubin Dipstick Negative (Negative); Urine Clarity Clear (Clear); Urine Urobilinogen Normal (Normal)
[2023-01-12 06:01] LABS: Bacteria RARE /hpf (None Seen); Internal QC Validated? YES +Cl - CLEAR BKGD; Pregnancy, Urine Negative Negative; Squamous Epithelial Cells - UA 0-5 SEEN /hpf (5-10); White Blood Cells 0-5 SEEN /hpf (0-5)
[2023-01-12 06:05] LABS: Lipase 48 U/L (13-75)
[2023-01-12 06:07] LABS: ALB/GLOB Ratio 0.8 RATIO (0.9-2.4); AST(SGOT) 8 U/L (15-37); Alanine Aminotransfer ALT/SGPT 22 U/L (13-56); Albumin, Serum 3.3 g/dL (3.2-5.0); Alkaline Phosphatase 100 U/L (45-117); Anion Gap 8 (5-15); BUN 11 mg/dL (7-18); BUN/Creat Ratio 12.5 RATIO (10-20); Calcium,Total 8.9 mg/dL (8.5-10.1); Chloride 103 mmol/L (98-107); Creatinine, Serum 0.88 mg/dL (0.55-1.02); EST Glomerular Filtration Rate 85 mL/min (>60); Est Glom Filt Rate - Afr Amer 103 mL/min (>60); Estimated Creatinine Clearance 96.69 ml/min; Glucose 119 mg/dL (74-106); Potassium 3.9 mmol/L (3.5-5.1); Protein, Total 7.3 g/dL (6.4-8.2); Sodium Level 137 mmol/L (136-145)
[2023-01-12 06:14] LABS: Differential Indicated SCAN CRITERIA MET
[2023-01-12 06:15] LABS: Differential Comment SCANNED; Platelet Morphology LARGE
[2023-01-12 07:16] VITALS: BP 128/72; PULSE 86; RESP 16; O2SAT 97
[2023-01-12 07:37] VITALS: BP 128/72; PULSE 86; O2SAT 97
== END 2023-01-12 07:42 | disposition home or self-care (01) ==
PROVIDERS: Emergency Provider Student in an Organized Health Care Education/Training Program; PCP Family Medicine; Visit Provider Student in an Organized Health Care Education/Training Program
DX: R10.9 Unspecified abdominal pain (principal); D72.829 Elevated white blood cell count, unspecified; F32.A Depression, unspecified; F41.1 Generalized anxiety disorder
CPT/HCPCS: 74177; 80053; 81001; 81025; 83690; 85025; 96361; 96374; 96375; 99283; J7030; Q9967; A4216; J2405

== ENCOUNTER → 2023-04-08 | Outpatient (CLI) | payer OTHER, SELFPAY ==
[2023-04-08 15:42] LABS: Hemoglobin A1c 5.1 % (3.8-5.6)
[2023-04-08 15:55] LABS: ALB/GLOB Ratio 0.9 RATIO (0.9-2.4); AST(SGOT) 27 U/L (15-37); Alanine Aminotransfer ALT/SGPT 37 U/L (13-56); Albumin, Serum 3.6 g/dL (3.2-5.0); Alkaline Phosphatase 81 U/L (45-117); Anion Gap 8 (5-15); BUN 6 mg/dL (7-18); BUN/Creat Ratio 7.7 RATIO (10-20); CRP 9.47 mg/L (0.0-3.0); Calcium,Total 8.9 mg/dL (8.5-10.1); Chloride 109 mmol/L (98-107); Creatinine, Serum 0.78 mg/dL (0.55-1.02); EST Glomerular Filtration Rate 97 mL/min (>60); Est Glom Filt Rate - Afr Amer 117 mL/min (>60); Globulin 3.8 g/dL (2.2-4.2); Glucose 95 mg/dL (74-106); Potassium 4.3 mmol/L (3.5-5.1); Protein, Total 7.4 g/dL (6.4-8.2); Rheumatoid Factor < 10.0 IU/mL (<15); Sodium Level 141 mmol/L (136-145)
[2023-04-08 16:04] LABS: Erythrocyte Sedimentation Rate 4 mm/hr (0-30)
[2023-04-10 11:08] LABS: ANTINUCLEAR ANTIBODIES DIRECT Negative (Negative)
== END | disposition home or self-care (01) ==
LOC: LAB.FUTURE 14:32 → LAB 14:35
PROVIDERS: PCP Family Medicine; Referring Provider Nurse Practitioner Family; Visit Provider Nurse Practitioner Family
DX: M25.50 Pain in unspecified joint (principal); R73.03 Prediabetes
CPT/HCPCS: 36415; 80053; 83036; 85652; 86038; 86140; 86431

== ENCOUNTER → 2023-07-21 | Outpatient (CLI) | payer OTHER, SELFPAY ==
--- NOTE | 2023-07-21 10:09 | RAD_ITS ---
STUDY: X-RAY - LUMBAR SPINE REASON FOR EXAM: Female, 22 years old. pain TECHNIQUE: AP and lateral view(s) of the lumbar spine were obtained. COMPARISON: None FINDINGS: Normal lumbar lordosis. There is no substantial scoliosis. There is a normal alignment of the vertebrae. Normal vertebral bodies and endplates. Normal disc space heights. The soft tissue structures are unremarkable. RAD/Lumbar Spine 2 or 3 Views IMPRESSION: Normal x-ray examination of the lumbar spine. Electronically Signed: aVsile Carrera MD at 20:08 EDT ,
== END | disposition home or self-care (01) ==
LOC: MTRAD 10:09
PROVIDERS: PCP Family Medicine; Referring Provider Orthopaedic Surgery; Visit Provider Orthopaedic Surgery
DX: M51.27 Other intervertebral disc displacement, lumbosacral region (principal)
CPT/HCPCS: 72100

== ENCOUNTER → 2023-08-12 | Outpatient (CLI) | payer OTHER, SELFPAY ==
--- NOTE | 2023-08-12 12:13 | MRI_ITS ---
EXAM: MR LUMBAR SPINE WITHOUT AND WITH INTRAVENOUS CONTRAST CLINICAL INDICATION: pain TECHNIQUE: Multiplanar and multisequence MR images of the lumbar spine without and with intravenous contrast. CONTRAST: IV 24ml Clariscan COMPARISON: MR Lumbar Spine dated 10/31/2021 FINDINGS: VERTEBRAE: Alignment of the lumbar vertebral bodies is normal. Normal vertebral body height. No bone marrow edema. SPINAL CORD: Normal. Normal position and signal intensity of the conus medullaris. SOFT TISSUES: Normal. No abnormal contrast enhancement. DISCS/SPINAL CANAL/NEURAL FORAMINA: L1-L2: Normal. Normal disc height and morphology. Normal spinal canal and lateral recesses. Normal neuroforamina. L2-L3: Normal. Normal disc height and morphology. Normal spinal canal and lateral recesses. Normal neuroforamina. L3-L4: Mild disc space narrowing and desiccation. Stable central disc protrusion resulting in mild spinal stenosis. Intact neural foramina. L4-L5: Mild disc space narrowing. No disc protrusion. Intact spinal canal and neural foramina. L5-S1: Mild disc space narrowing. Interval resolution of the large central disc herniation. No spinal or neural foraminal stenosis. MRI/Spine Lumbar W/WO Contrast IMPRESSION: 1. Stable mild spinal stenosis at L3-4 related to mild disc protrusion. 2. Interval resolution of the L5-S1 disc herniation. Electronically Signed: Truong White MD at 16:59 EDT ,
== END | disposition home or self-care (01) ==
LOC: MRI 12:05
PROVIDERS: PCP Family Medicine; Referring Provider Orthopaedic Surgery; Visit Provider Orthopaedic Surgery
DX: M51.26 Other intervertebral disc displacement, lumbar region (principal)
CPT/HCPCS: 72158; A9575

== ENCOUNTER → 2023-11-04 | Outpatient (CLI) | payer OTHER, SELFPAY ==
--- NOTE | 2023-11-04 15:10 | RAD_ITS ---
STUDY: X-RAY - PELVIS AND RIGHT HIP REASON FOR EXAM: Female, 22 years old. Right hip pain. No known injury. Right hip labrum repair in [id number]. TECHNIQUE: 3 views of the pelvis and right hip. COMPARISON: Pelvis and right hip radiographs dated 10/17/2021. FINDINGS: There is a non-specific bowel gas pattern. Normal visualized soft tissue structures. Normal bilateral iliac wings, sacroiliac joints and visualized sacrum. Normal bilateral superior and inferior pubic rami. Normal pubic symphysis. Normal bilateral ischial tuberosities. Normal visualized femoral head. Normal acetabulum. Normal hip joint. RAD/HIP, UNI W/ Pelvis 2-3 Views IMPRESSION: Normal x-ray examination of the pelvis and right hip. Electronically Signed: Lui Clinton MD at 16:16 EDT ,
== END | disposition home or self-care (01) ==
LOC: RAD 14:58
PROVIDERS: PCP Family Medicine; Referring Provider Anesthesiology; Visit Provider Anesthesiology
DX: M25.551 Pain in right hip (principal)
CPT/HCPCS: 73502

== ENCOUNTER → 2023-11-25 | Outpatient (CLI) | payer OTHER, SELFPAY ==
--- NOTE | 2023-11-25 12:45 | RAD_ITS ---
XR Bone Length Studies Scanograms INDICATION:22 years old Female presenting with DIFFERENT LIMB LENGTH LOWER EXTREMITIES. TECHNIQUE: In scanogram fashion, coned-down images are obtained at the level of the hips, knees, and ankles while the patient is superimposed over a ruler. COMPARISON: None. FINDINGS: Right lower extremity: Femur length measured from the superior articular surface of the femoral head through the medial femoral condyle: 44 cm. Tibial length measured from the medial tibial plateau to the tibial plafond: 34 cm. Right lower extremity length measured from the superior articular surface of the femoral head through the tibial plafond: 79 cm. Left lower extremity: Femur length measured from the superior articular surface of the femoral head through the medial femoral condyle: 44 cm. Tibial length measured from the medial tibial plateau to the tibial plafond: 34 cm. Right lower extremity length measured from the superior articular surface of the femoral head through the tibial plafond: 79 cm. IMPRESSIONS: No significant leg length discrepancy appreciated. Electronically Signed: Simeon Barajas MD at 9:41 EDT , RAD/Bone Length IMPRESSION: undefined
== END | disposition home or self-care (01) ==
LOC: LAB 12:37
PROVIDERS: PCP Family Medicine; Referring Provider Podiatrist; Visit Provider Podiatrist
DX: M21.762 Unequal limb length (acquired), left tibia (principal)
CPT/HCPCS: 77073